=== PATIENT | female | born 1935 | race Caucasian/White ===

== ENCOUNTER 2020-01-07 12:59 | Inpatient (IN) | payer MEDICARE ==
[2020-01-07] MEDS ORDERED: SODIUM CHLORIDE 0.9% 1,000 ML IV STA (13:12)
--- NOTE | 2020-01-07 13:27 | ED ---
General Adult HPI - General Chief complaint: Weakness Stated complaint: Weakness Time Seen by Provider: 01/07/20 13:10 Source: patient, family Mode of arrival: wheelchair Limitations: no limitations - History of Present Illness Initial comments: Dictation was produced using [employer] dictation software. please excuse any grammatical, word or spelling errors. This patient was cared for during a federal and state declared state of emergency secondary to Covid 19 Chief Complaint: 83-year-old female past medical history of atrial fibrillation, congestive heart failure, coronary artery disease presents with lethargy History of Present Illness: Real female she presents with lethargy. Patient is accompanied by daughter who was able to provide history of present illness. Patient has essentially been sick since of last week. She lives at home by herself in [place]. Daughter lives in the area. Daughter went to go pick her up because she hasn't been feeling well. Patient was at home alone. She hasn't been exposed to any ill individuals. Patient is too lethargic to provide HPI. Granddaughter she has not been eating she's been excessively tired recently. Daughter also noted significant bruising of her body especially around the right upper extremity. Although daughter reports thatted in this emergency department record has been reviewed and confirmed by me. 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 Those systems with pertinent positive or negative responses have been documented in the HPI. All other systems are other negative and/or noncontributory. PHYSICAL EXAM: General Impression: Alert and oriented x2/4, lethargic, bruised HEENT: Normocephalic atraumatic, extra-ocular movements intact, pupils equal and reactive to light bilaterally, dry mucous membranes Cardiovascular: Heart regular rate and rhythm, S1&S2 audible, no murmurs, rubs or gallops Chest: Lungs clear to auscultation bilaterally, no rhonchi, no wheeze, no rales Abdomen: Bowel sounds present, abdomen soft, non-tender, non-distended, no organomegaly Musculoskeletal: weak pulses equal in all extremities, no peripheral edema Motor: no focal deficits noted Neurological: CN II-XII grossly intact, no focal motor or sensory deficits noted Skin: Intact with no visualized rashes ED course: 83 yo female with significant comorbidities presents with lethargy, generalized weakness vital signs upon arrival shows temperature 96.1, heart rate 104, blood pressure 66/45, 92% on room air Lab return evaluation obtained. Leukocytosis of 24.9 concerning for infectious process. Hemoglobin 6.8. Coag panel shows supratherapeutic INR greater than 10 with fibrinogen of 5:15. Elevated PT. Metabolic panel shows anion gap acidosis with a bicarb of 18 and a gap of 15. Glucose 195. Lactic acidosis 5.5. Urinalysis is concerning for urinary tract infection. Upon reevaluation of the patient she did complain of some lower abdominal pain there is concerned that her symptoms represent retroperitoneal hemorrhage. CT abdomen and pelvis with contrast was obtained. No acute findings noted. No findings of intra-abdominal infection or retroperitoneal hemorrhage. Nonetheless patient given broad- spectrum antibiotics for concerns of sepsis, however clinical presentation suggests symptomatic anemia patient treated with Protonix. She has not had any episodes of GI bleed. Patient stable for telemetry. Discussed patient case Dr. Blanton who is willing to accept patients care. GI on consult. EKG interpretation: Ventricular rate 60, ventricular paced rhythm, QRS 120, QTC 494. No CO prolongation, no QTC prolongation, no ST or T-wave changes noted. Overall, this EKG is unremarkable - Related Data Home Medications Medication Instructions Recorded Confirmed Acetaminophen with Codeine 1 tab PO Q8HR PRN 01/07/20 01/07/20 [Tylenol with Codeine #4 Tablet] Carvedilol [Coreg] 6.25 mg PO BID 01/07/20 01/07/20 DULoxetine HCL [Cymbalta] 60 mg PO DAILY 01/07/20 01/07/20 Furosemide [Lasix] 40 mg PO DAILY PRN 01/07/20 01/07/20 Gabapentin [Neurontin] 300 mg PO TID 01/07/20 01/07/20 Levothyroxine Sodium [Synthroid] 112 mcg PO MOTUWETHFR 01/07/20 01/07/20 Levothyroxine Sodium [Synthroid] 168 mg PO SUSA 01/07/20 01/07/20 Losartan Potassium 50 mg PO DAILY 01/07/20 01/07/20 Sucralfate [Carafate] 1 gm PO TID 01/07/20 01/07/20 Warfarin Sodium 4 mg PO HS 01/07/20 01/07/20 Allergies Allergy/AdvReac Type Severity Reaction Status Date / Time pregabalin [From Lyrica] Allergy Itching Verified 01/07/20 13:29 Review of Systems ROS Statement: Those systems with pertinent positive or pertinent negative responses have been documented in the HPI. ROS Other: All systems not noted in ROS Statement are negative. Past Medical History Past Medical History: Atrial Fibrillation, Coronary Artery Disease (CAD), Cancer, Heart Failure History of Any Multi-Drug Resistant Organisms: None Reported Past Surgical History: Pacemaker Additional Past Surgical History / Comment(s): rainer hip replacement Past Psychological History: Depression Smoking Status: Never smoker Past Alcohol Use History: None Reported Past Drug Use History: None Reported General Exam Limitations: no limitations Course Vital Signs 01/07/20 01/07/20 01/07/20 13:04 13:20 13:45 Temperature 96.1 F L Pulse Rate 104 H 60 Respiratory 22 18 Rate Blood Pressure 66/45 101/54 O2 Sat by Pulse 92 L 80 L 97 Oximetry Medical Decision Making - Lab Data Result diagrams: 01/07/20 12:15 01/07/20 12:15 Lab Results 01/07/20 01/07/20 01/07/20 Range/Units 12:15 12:15 12:15 WBC 24.9 H (3.8-10.6) k/uL RBC 2.51 L (3.80-5.40) m/uL Hgb 6.8 L* (11.4-16.0) gm/dL Hct 21.4 L (34.0-46.0) % MCV 85.2 (80.0-100.0) fL MCH 27.3 (25.0-35.0) pg MCHC 32.0 (31.0-37.0) g/dL RDW 18.1 H (11.5-15.5) % Plt Count 484 H (150-450) k/uL Neutrophils % 87 % Lymphocytes % 5 % Monocytes % 6 % Eosinophils % 0 % Basophils % 0 % Neutrophils # 21.7 H (1.3-7.7) k/uL Lymphocytes # 1.3 (1.0-4.8) k/uL Monocytes # 1.5 H (0-1.0) k/uL Eosinophils # 0.1 (0-0.7) k/uL Basophils # 0.1 (0-0.2) k/uL Hypochromasia Slight Anisocytosis Slight PT >130.0 H (9.0-12.0) sec INR >10.0 H* (<1.2) APTT 68.2 H (22.0-30.0) sec Fibrinogen 515 H (200-500) mg/dL Sodium (137-145) mmol/L Potassium (3.5-5.1) mmol/L Chloride (98-107) mmol/L Carbon Dioxide (22-30) mmol/L Anion Gap mmol/L BUN (7-17) mg/dL Creatinine (0.52-1.04) mg/dL Est GFR (CKD-EPI)AfAm (>60 ml/min/1.73 sqM) Est GFR (CKD-EPI)NonAf (>60 ml/min/1.73 sqM) Glucose (74-99) mg/dL POC Glucose (mg/dL) (75-99) mg/dL POC Glu Cast Iron Dipper ID Plasma Lactic Acid Kamran (0.7-2.0) mmol/L Calcium (8.4-10.2) mg/dL Ionized Calcium Wilner (4.5-5.3) mg/dL Magnesium (1.6-2.3) mg/dL Total Bilirubin (0.2-1.3) mg/dL AST (14-36) U/L ALT (4-34) U/L Alkaline Phosphatase (38-126) U/L Ammonia (<30) umol/L Troponin I (0.000-0.034) ng/mL Total Protein (6.3-8.2) g/dL Albumin (3.5-5.0) g/dL Urine Color Urine Appearance (Clear) Urine pH (5.0-8.0) Ur Specific [place] (1.001-1.035) Urine Protein (Negative) Urine Glucose (UA) (Negative) Urine Ketones (Negative) Urine Blood (Negative) Urine Nitrite (Negative) Urine Bilirubin (Negative) Urine Urobilinogen (<2.0) mg/dL Ur Leukocyte Esterase (Negative) Urine RBC (0-5) /hpf Urine WBC (0-5) /hpf Urine WBC Clumps (None) /hpf Ur Squamous Epith Cells (0-4) /hpf Urine Bacteria (None) /hpf Hyaline Casts (0-2) /lpf Urine Mucus (None) /hpf Blood Type O Positive Blood Type Confirm Blood Type Recheck No Previous Record Bld Type Recheck Status CABO Indicated Antibody Screen NEGATIVE Crossmatch See Detail Spec Expiration Date 01/10/2020 - 231401/07/20 01/07/20 01/07/20 Range/Units 12:15 12:15 12:15 WBC (3.8-10.6) k/uL RBC (3.80-5.40) m/uL Hgb (11.4-16.0) gm/dL Hct (34.0-46.0) % MCV (80.0-100.0) fL MCH (25.0-35.0) pg MCHC (31.0-37.0) g/dL RDW (11.5-15.5) % Plt Count (150-450) k/uL Neutrophils % % Lymphocytes % % Monocytes % % Eosinophils % % Basophils % % Neutrophils # (1.3-7.7) k/uL Lymphocytes # (1.0-4.8) k/uL Monocytes # (0-1.0) k/uL Eosinophils # (0-0.7) k/uL Basophils # (0-0.2) k/uL Hypochromasia Anisocytosis PT (9.0-12.0) sec INR (<1.2) APTT (22.0-30.0) sec Fibrinogen (200-500) mg/dL Sodium 133 L (137-145) mmol/L Potassium 4.4 (3.5-5.1) mmol/L Chloride 100 (98-107) mmol/L Carbon Dioxide 18 L (22-30) mmol/L Anion Gap 15 mmol/L BUN 20 H (7-17) mg/dL Creatinine 0.76 (0.52-1.04) mg/dL Est GFR (CKD-EPI)AfAm 84 (>60 ml/min/1.73 sqM) Est GFR (CKD-EPI)NonAf 73 (>60 ml/min/1.73 sqM) Glucose 195 H (74-99) mg/dL POC Glucose (mg/dL) (75-99) mg/dL POC Glu Cast Iron Dipper ID Plasma Lactic Acid Kamran 5.5 H* (0.7-2.0) mmol/L Calcium 8.7 (8.4-10.2) mg/dL Ionized Calcium Wilner 4.6 (4.5-5.3) mg/dL Magnesium 2.0 (1.6-2.3) mg/dL Total Bilirubin 0.9 (0.2-1.3) mg/dL AST 41 H (14-36) U/L ALT 22 (4-34) U/L Alkaline Phosphatase 77 (38-126) U/L Ammonia <9 (<30) umol/L Troponin I <0.012 (0.000-0.034) ng/mL Total Protein 6.1 L (6.3-8.2) g/dL Albumin 3.3 L (3.5-5.0) g/dL Urine Color Urine Appearance (Clear) Urine pH (5.0-8.0) Ur Specific [place] (1.001-1.035) Urine Protein (Negative) Urine Glucose (UA) (Negative) Urine Ketones (Negative) Urine Blood (Negative) Urine Nitrite (Negative) Urine Bilirubin (Negative) Urine Urobilinogen (<2.0) mg/dL Ur Leukocyte Esterase (Negative) Urine RBC (0-5) /hpf Urine WBC (0-5) /hpf Urine WBC Clumps (None) /hpf Ur Squamous Epith Cells (0-4) /hpf Urine Bacteria (None) /hpf Hyaline Casts (0-2) /lpf Urine Mucus (None) /hpf Blood Type Blood Type Confirm Blood Type Recheck Bld Type Recheck Status Antibody Screen Crossmatch Spec Expiration Date 01/07/20 01/07/20 01/07/20 Range/Units 12:20 12:20 13:26 WBC (3.8-10.6) k/uL RBC (3.80-5.40) m/uL Hgb (11.4-16.0) gm/dL Hct (34.0-46.0) % MCV (80.0-100.0) fL MCH (25.0-35.0) pg MCHC (31.0-37.0) g/dL RDW (11.5-15.5) % Plt Count (150-450) k/uL Neutrophils % % Lymphocytes % % Monocytes % % Eosinophils % % Basophils % % Neutrophils # (1.3-7.7) k/uL Lymphocytes # (1.0-4.8) k/uL Monocytes # (0-1.0) k/uL Eosinophils # (0-0.7) k/uL Basophils # (0-0.2) k/uL Hypochromasia Anisocytosis PT (9.0-12.0) sec INR (<1.2) APTT (22.0-30.0) sec Fibrinogen (200-500) mg/dL Sodium (137-145) mmol/L Potassium (3.5-5.1) mmol/L Chloride (98-107) mmol/L Carbon Dioxide (22-30) mmol/L Anion Gap mmol/L BUN (7-17) mg/dL Creatinine (0.52-1.04) mg/dL Est GFR (CKD-EPI)AfAm (>60 ml/min/1.73 sqM) Est GFR (CKD-EPI)NonAf (>60 ml/min/1.73 sqM) Glucose (74-99) mg/dL POC Glucose (mg/dL) 120 H (75-99) mg/dL POC Glu Cast Iron Dipper ID Salgat, Maryan Plasma Lactic Acid Kamran (0.7-2.0) mmol/L Calcium (8.4-10.2) mg/dL Ionized Calcium Wilner (4.5-5.3) mg/dL Magnesium (1.6-2.3) mg/dL Total Bilirubin (0.2-1.3) mg/dL AST (14-36) U/L ALT (4-34) U/L Alkaline Phosphatase (38-126) U/L Ammonia (<30) umol/L Troponin I (0.000-0.034) ng/mL Total Protein (6.3-8.2) g/dL Albumin (3.5-5.0) g/dL Urine Color Yellow Urine Appearance Cloudy H (Clear) Urine pH 5.5 (5.0-8.0) Ur Specific [place] 1.027 (1.001-1.035) Urine Protein 1+ H (Negative) Urine Glucose (UA) Trace H (Negative) Urine Ketones Negative (Negative) Urine Blood Negative (Negative) Urine Nitrite Negative (Negative) Urine Bilirubin Negative (Negative) Urine Urobilinogen 2.0 (<2.0) mg/dL Ur Leukocyte Esterase Moderate H (Negative) Urine RBC 3 (0-5) /hpf Urine WBC 27 H (0-5) /hpf Urine WBC Clumps Few H (None) /hpf Ur Squamous Epith Cells 5 H (0-4) /hpf Urine Bacteria Rare H (None) /hpf Hyaline Casts 35 H (0-2) /lpf Urine Mucus Moderate H (None) /hpf Blood Type Blood Type Confirm O Positive Blood Type Recheck Bld Type Recheck Status Antibody Screen Crossmatch Spec Expiration Date Disposition Clinical Impression: Anemia, Supratherapeutic INR Disposition: ADMITTED IP TO THIS [facility] Condition: Fair Referrals: Khari Cuellar DO [Primary Care Provider] - 1-2 days Decision Time: 14:54
[2020-01-07 13:28] LABS: Glucose,Whole Blood 120 mg/dL (75-99)
[2020-01-07 13:32] LABS: Anisocytosis Slight; Basophils # (A) 0.1 k/uL (0-0.2); Basophils % (A) 0 %; Eosinophils # (A) 0.1 k/uL (0-0.7); Eosinophils % (A) 0 %; HCT 21.4 % (34.0-46.0); Hypochromasia Slight; Lymphocytes # (A) 1.3 k/uL (1.0-4.8); Lymphocytes % (A) 5 %; MCH 27.3 pg (25.0-35.0); MCV 85.2 fL (80.0-100.0); Mean Platelet Volume 7.6; Monocytes # (A) 1.5 k/uL (0-1.0); Monocytes % (A) 6 %; Neutrophils # (A) 21.7 k/uL (1.3-7.7); Neutrophils % (A) 87 %; Platelet Count 484 k/uL (150-450); RBC 2.51 m/uL (3.80-5.40); RDW 18.1 % (11.5-15.5); WBC 24.9 k/uL (3.8-10.6)
[2020-01-07 13:44] LABS: Ionized Calcium 4.6 mg/dL (4.5-5.3)
[2020-01-07 13:48] LABS: Lactic Acid, Venous 5.5 mmol/L (0.7-2.0)
[2020-01-07] MEDS ORDERED: CEFEPIME 2 GM in SODIUM CHLORIDE 0.9% 100 ML IVPB STA (13:50)
[2020-01-07] MEDS ORDERED: VANCOMYCIN IV PER PHARMACY 1 EACH MISC MISCELLANE PRN (13:50)
[2020-01-07 13:54] LABS: HGB 6.8 gm/dL (11.4-16.0)
[2020-01-07 14:00] LABS: Appearance,Urine Cloudy (Clear); Bacteria,Urine Rare /hpf; Bilirubin,Urine Negative (Negative); Blood,Urine Negative (Negative); Color,Urine Yellow; Glucose,Urine (UA) Trace (Negative); Hyaline Casts,Urine 35 /lpf (0-2); Ketones,Urine Negative (Negative); Leukocyte Esterase,Urine Moderate (Negative); Mucus,Urine Moderate /hpf; Nitrite,Urine Negative (Negative); PH, Urine 5.5 (5.0-8.0); Protein,Urine 1+ (Negative); RBC,Urine 3 /hpf (0-5); Specific Gravity,Urine 1.027 (1.001-1.035); Squamous Epithelial Cell,Urine 5 /hpf (0-4); WBC,Urine 27 /hpf (0-5)
[2020-01-07 14:01] LABS: Fibrinogen 515 mg/dL (200-500)
[2020-01-07 14:02] LABS: Prothrombin Time >130.0 sec (9.0-12.0)
[2020-01-07 14:03] LABS: Albumin 3.3 g/dL (3.5-5.0); Calcium 8.7 mg/dL (8.4-10.2); INR >10.0 (<1.2); Partial Thromboplastin Time 68.2 sec (22.0-30.0); Potassium 4.4 mmol/L (3.5-5.1); Total Bilirubin 0.9 mg/dL (0.2-1.3); Total Protein 6.1 g/dL (6.3-8.2)
[2020-01-07] MEDS ORDERED: PHYTONADIONE 2.5 MG in SODIUM CHLORIDE 0.9% 50 ML IVPB STA (14:06)
--- NOTE | 2020-01-07 14:22 | XR ---
EXAMINATION TYPE: XR pelvis AP view DATE OF EXAM: 01/07/2020 CLINICAL HISTORY: Pelvic pain after fall TECHNIQUE: A single AP view of the pelvis is obtained. COMPARISON: None. FINDINGS: There are bilateral hip arthroplasties seen without malalignment or hardware fracture. Mini mal sclerosis of the sacroiliac joints bilaterally. Mild degenerative change of the lumbosacral junct ion. Probable punctate sclerotic bone island in the right pubic bone. No gross dislocation or fractur e of the pelvis. Diffuse osseous demineralization. Mild atherosclerosis. IMPRESSION: There is no acute fracture or dislocation in the pelvis.
--- NOTE | 2020-01-07 14:24 | XR ---
EXAMINATION TYPE: XR elbow complete RT DATE OF EXAM: 01/07/2020 CLINICAL HISTORY: Right elbow pain after fall TECHNIQUE: Frontal, lateral and oblique images of the right elbow are obtained. COMPARISON: None FINDINGS: Diffuse subcutaneous edema seen of the visualized right extremity. There is no acute fractu re/dislocation evident in the right elbow. No abnormal fat pad signs are seen. The overlying soft t issue appears unremarkable. IMPRESSION: Diffuse subcutaneous edema without acute fracture or dislocation in the right elbow.
--- NOTE | 2020-01-07 14:25 | XR ---
EXAMINATION TYPE: XR shoulder complete RT DATE OF EXAM: 01/07/2020 CLINICAL HISTORY: Right shoulder pain after fall TECHNIQUE: Three views of the right shoulder are obtained. COMPARISON: None. FINDINGS: There is no acute fracture/dislocation evident in the right shoulder. The acromioclavicul ar and glenohumeral joint spaces appear within normal limits other than mild acromioclavicular and gl enohumeral arthropathy. The visualized ribs are intact and unremarkable. IMPRESSION: There is no acute fracture or dislocation in the right shoulder.
--- NOTE | 2020-01-07 14:27 | XR ---
EXAMINATION TYPE: XR chest 1V portable DATE OF EXAM: 01/07/2020 COMPARISON: NONE HISTORY: Weakness TECHNIQUE: Single frontal view of the chest is obtained. FINDINGS: There is no focal air space opacity, pleural effusion, or pneumothorax seen. The cardiac silhouette size is enlarged with multilead left-sided cardiac device. Right hemidiaphragm elevation i s seen. The osseous structures are intact. IMPRESSION: Right hemidiaphragm elevation of indeterminate chronicity and cardiomegaly.
[2020-01-07] MEDS ORDERED: PANTOPRAZOLE 40 MG/10 ML VIAL IVP ONE (14:32)
--- NOTE | 2020-01-07 14:36 | CT ---
EXAMINATION TYPE: CT brain cspine wo con DATE OF EXAM: 01/07/2020 COMPARISON: NONE HISTORY: Fall with subsequent head and neck pain CT DLP: 1316.6 mGycm. Automated Exposure Control for Dose Reduction was Utilized. TECHNIQUE: CT scan of the head and cervical spine are performed without contrast. FINDINGS: There is no acute intracranial hemorrhage or midline shift identified. There is diffuse v entricular and sulcal prominence consistent with diffuse age-related cerebral atrophy. There is low- attenuation in the periventricular white matter consistent with chronic small vessel ischemic change. The globes are intact and the visualized sinuses are clear. Partial opacification of the right mast oid air cells. Cervical spine is visualized in its entirety from C1 through upper thoracic levels and demonstrates s atisfactory alignment without evidence of acute fracture or dislocation. Prevertebral soft tissue ap pears within normal limits. The C1-C2 articulation is unremarkable. Mild multilevel degenerative ch anges seen of the cervical spine. Patchy airspace disease in the left upper lung may relate to volume averaging from the superior mediastinum, less likely atelectasis or pneumonia. IMPRESSION: 1. There is no acute fracture or dislocation evident in the cervical spine. 2. No acute intracranial hemorrhage, mass effect, or midline shift is seen. 3. Mild degenerative disc disease of the cervical spine. 4. Partial opacification of the right mastoid air cells. Correlate for point tenderness to exclude ac giancarlo mastoiditis. 5. Partial visualization of a focus of airspace disease in the left upper lung likely volume averagin g from the mediastinum versus atelectasis or much less likely pneumonia.
[2020-01-07] MEDS ORDERED: ONDANSETRON 4 MG/2 ML VIAL IVP PRN (14:54)
[2020-01-07] MEDS ORDERED: NALOXONE 0.4 MG/ML 1 ML VIAL IV PRN (14:54)
[2020-01-07] MEDS ORDERED: VANCOMYCIN 1,000 MG in SODIUM CHLORIDE 0.9% 250 ML IVPB STA (14:57)
--- NOTE | 2020-01-07 15:03 | CT ---
EXAMINATION TYPE: CT abdomen pelvis w con DATE OF EXAM: 01/07/2020 HISTORY: abdominal pain, weakness CT DLP: 1542mGycm Automated Exposure Control for Dose Reduction was Utilized. CONTRAST: CT scan of the abdomen and pelvis is performed with IV Contrast, patient injected with 100 mL of Isov ue 300. COMPARISON: None. FINDINGS: Patient motion artifact does slightly limit the examination. LUNG BASES: Minimal bibasilar subsegmental dependent atelectasis. Heart is enlarged. LIVER/GB: Liver is unremarkable in morphology. Cholecystectomy clips are seen. Extrahepatic biliary d uctal dilatation is, and pulsed cholecystectomy measuring up to 1 cm, upper limits of normal. Minimal intrahepatic biliary ductal dilatation. PANCREAS: No significant abnormality is seen. SPLEEN: No significant abnormality is seen. ADRENALS: No significant abnormality is seen. KIDNEYS: 2 cm right superior pole renal sinus cyst. BOWEL: There are numerous colonic diverticula without pericolonic fat stranding. No dilated large or small bowel seen. UTERUS/ADNEXA: Largely obscured by bilateral hip prostheses. LYMPH NODES: No greater than 1cm abdominal or pelvic lymph nodes are appreciated. OSSEOUS STRUCTURES: The bilateral hip prostheses limit evaluation of the pelvis. There is diffuse oss eous demineralization and mild to moderate degenerative changes of the spine. No compression deformit ies seen. OTHER: Benign appearing dystrophic calcifications in both breasts. Left-sided cardiac device noted. M oderate atherosclerosis of the abdominal aorta and its branches without evidence of contrast extravas ation. IMPRESSION: No acute compression deformity of the visualized thoracolumbar spine, no evidence of abdo aidee visceral trauma, nor pneumoperitoneum.
[2020-01-07] MEDS: SODIUM CHLORIDE 0.9% 1,000 ML IV SCH (15:48)
[2020-01-07 16:53] LABS: Anisocytosis Slight; Basophils # (A) 0.1 k/uL (0-0.2); Basophils % (A) 0 %; Eosinophils % (A) 0 %; HCT 24.2 % (34.0-46.0); HGB 7.1 gm/dL (11.4-16.0); Hypochromasia Marked; Lymphocytes # (A) 1.1 k/uL (1.0-4.8); Lymphocytes % (A) 5 %; MCH 27.2 pg (25.0-35.0); MCHC 29.3 g/dL (31.0-37.0); MCV 92.8 fL (80.0-100.0); Mean Platelet Volume 7.8; Monocytes # (A) 1.5 k/uL (0-1.0); Monocytes % (A) 7 %; Neutrophils # (A) 18.5 k/uL (1.3-7.7); Neutrophils % (A) 86 %; Platelet Count 420 k/uL (150-450); RBC 2.61 m/uL (3.80-5.40); RDW 17.2 % (11.5-15.5); WBC 21.5 k/uL (3.8-10.6)
[2020-01-07 17:37] LABS: Glucose,Whole Blood 74 mg/dL (75-99)
[2020-01-07] MEDS: GABAPENTIN 300 MG CAP PO SCH ×2 (17:54→22:40)
[2020-01-07] MEDS: ACETAMINOPHEN TAB 325 MG TAB PO PRN (17:54)
[2020-01-07] MEDS: CARVEDILOL 6.25 MG TAB PO SCH (20:20)
[2020-01-07 22:55] LABS: Anisocytosis Slight; Basophils # (A) 0.1 k/uL (0-0.2); Basophils % (A) 0 %; Eosinophils # (A) 0.1 k/uL (0-0.7); Eosinophils % (A) 1 %; HCT 24.8 % (34.0-46.0); HGB 7.6 gm/dL (11.4-16.0); Hypochromasia Slight; Lymphocytes % (A) 8 %; MCH 26.9 pg (25.0-35.0); MCHC 30.6 g/dL (31.0-37.0); Mean Platelet Volume 7.7; Monocytes # (A) 2.6 k/uL (0-1.0); Monocytes % (A) 11 %; Neutrophils # (A) 18.2 k/uL (1.3-7.7); Neutrophils % (A) 77 %; Platelet Count 383 k/uL (150-450); Poikilocytosis Slight; RBC 2.82 m/uL (3.80-5.40); RDW 17.4 % (11.5-15.5); WBC 23.7 k/uL (3.8-10.6)
[2020-01-07 23:04] LABS: MCV 87.8 fL (80.0-100.0)
[2020-01-07 23:34] LABS: Large Platelets Present
[2020-01-07 23:35] LABS: Ovalocytes Present; Polychromasia Present
--- NOTE | 2020-01-08 00:38 | P.HPIM ---
History of Present Illness H&P Date: 01/07/20 Chief Complaint: Generalized weakness and lethargic Patient is a 83-year-old female with a known history of chronic atrial fibrillation on anticoagulation with Coumadin, history of pacemaker/AICD placement, chronic CHF, depression and other medical problems was brought to the hospital due to generalized weakness and lethargic. Patient lives by herself at home. Since last she has been having generalized weakness and shortness of breath with walking. Patient is accompanied by her daughter who is able to provide history. Daughter went to pick her up cultures she has not been feeling well. She has not been eating well and excessively tired recently. Patient has bruising all over the body on the extremities and also on the chest. 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 Denied any hematemesis or melena. Denied any [id number] pain medication use. No nausea vomiting or diarrhea. No dysuria or hematuria. Denied any complaints of fever or chills. No cough or sputum production. Denied any sick contacts at home. No history of prior GI bleed. Patient had EGD several years ago was negative for an acute bleeding. Patient was found to have hemoglobin level .8 and INR greater than 10. Elevated PT. WBC count 24.9 lactic acid 5.5 and urinalysis showed cloudy and elevated WBC counts and leukocyte esterase positive. Patient had CT head/cervical spine and CT abdomen and pelvis in the ER. Showed no acute bleeding. No retroperitoneal hemorrhage. EKG showed ventricular paced rhythm. Rate around 60. Patient was given a dose of vancomycin and cefepime in the ER. 1 unit of PRBC was ordered. Review of Systems Constitutional: Patient denies any fever or chills . Generalized weakness and tiredness. Abdomen: Patient denied nausea vomiting and diarrhea and abdominal pain. Cardiovascular: Patient denies any chest pain or short of breath no palpitations. Respiratory: patient denied any cough is from production. No shortness of breath Neurologic: Patient denied any numbness or tingling headache. Musculoskeletal: Patient denies any complaints of joint swelling or deformity. Skin: Ecchymosis and bruising all over the body. No active rash. Psychiatric: Negative Endocrine: No heat or cold intolerance. No recent weight gain. Genitourinary: No dysuria or hematuria. All other 14 point ROS negative except the above Past Medical History Past Medical History: Atrial Fibrillation, Coronary Artery Disease (CAD), Cancer, Heart Failure History of Any Multi-Drug Resistant Organisms: None Reported Past Surgical History: Pacemaker Additional Past Surgical History / Comment(s): rainer hip replacement Type of Cardiac Device: Permanent Pacemaker Device Placement Date:: not known Past Psychological History: Depression Smoking Status: Never smoker Past Alcohol Use History: None Reported Past Drug Use History: None Reported Medications and Allergies Home Medications Medication Instructions Recorded Confirmed Type Acetaminophen with Codeine 1 tab PO Q8HR PRN 01/07/20 01/07/20 History [Tylenol with Codeine #4 Tablet] Carvedilol [Coreg] 6.25 mg PO BID 01/07/20 01/07/20 History DULoxetine HCL [Cymbalta] 60 mg PO DAILY 01/07/20 01/07/20 History Furosemide [Lasix] 40 mg PO DAILY PRN 01/07/20 01/07/20 History Gabapentin [Neurontin] 300 mg PO TID 01/07/20 01/07/20 History Levothyroxine Sodium [Synthroid] 112 mcg PO [id number] 01/07/20 01/07/20 History Levothyroxine Sodium [Synthroid] 168 mg PO SUSA 01/07/20 01/07/20 History Losartan Potassium 50 mg PO DAILY 01/07/20 01/07/20 History Sucralfate [Carafate] 1 gm PO TID 01/07/20 01/07/20 History Warfarin Sodium 4 mg PO HS 01/07/20 01/07/20 History Allergies Allergy/AdvReac Type Severity Reaction Status Date / Time pregabalin [From Lyrica] Allergy Itching Verified 01/07/20 13:29 Physical Exam Vitals: Vital Signs Temp Pulse Resp BP Pulse Ox 01/07/20 21:00 60 20 138/79 97 01/07/20 20:00 97.9 F 60 26 H 157/55 99 01/07/20 19:00 60 20 135/55 01/07/20 18:54 98.1 F 60 12 157/55 97 01/07/20 18:00 60 25 H 169/54 95 01/07/20 17:04 98.4 F 60 18 126/84 96 01/07/20 17:00 97.8 F 59 L 24 139/64 01/07/20 16:34 97.4 F L 60 18 139/64 98 01/07/20 16:24 97.8 F 60 18 136/78 98 01/07/20 15:45 60 18 136/60 96 01/07/20 13:45 97 01/07/20 13:20 60 18 101/54 80 L 01/07/20 13:04 96.1 F L 104 H 22 66/45 92 L Intake and Output 01/07/20 01/07/20 01/07/20 06:59 14:59 22:59 Intake Total 860 Output Total 0 Balance 860 Intake: IV 350 Sodium Chloride 0.9% 1, 100 000 ml @ 100 mls/hr IV . Q10H NGOC Rx#:[id number] Vancomycin 1,000 mg In 250 Sodium Chloride 0.9% 250 ml @ 125 mls/hr IVPB ONCE STA Rx#:[id number] Intake, IV Titration 100 Amount Cefepime 2 gm In Sodium 100 Chloride 0.9% 100 ml @ 200 mls/hr IVPB ONCE STA Rx#:[id number] Oral 100 Blood Product 310 Rc Pheresis As-3 Unit 310 [id number] Output: Urine 0 Other: Voiding Method Bedpan Weight 58.967 kg 58.967 kg General Impression: Alert and oriented x2/4, lethargic, bruised HEENT: Normocephalic atraumatic, extra-ocular movements intact, pupils equal and reactive to light bilaterally, dry mucous membranes Cardiovascular: Heart regular rate and rhythm, S1&S2 audible, no murmurs, rubs or gallops Chest: Lungs clear to auscultation bilaterally, no rhonchi, no wheeze, no rales Abdomen: Bowel sounds present, abdomen soft, non-tender, non-distended, no organomegaly Musculoskeletal: weak pulses equal in all extremities, no peripheral edema Motor: no focal deficits noted Neurological: CN II-XII grossly intact, no focal motor or sensory deficits noted Skin: Intact with no visualized rashes. Patient does have bruising all over the body and also petechial rash. No active bleeding. Psychiatric.: Cooperative. Nonsuicidal. Results CBC & Chem 7: 01/07/20 22:37 01/07/20 12:15 Labs: Abnormal Lab Results - Last 24 Hours (Table) 01/07/20 01/07/20 01/07/20 Range/Units 12:15 12:15 12:15 WBC 24.9 H (3.8-10.6) k/uL RBC 2.51 L (3.80-5.40) m/uL Hgb 6.8 L* (11.4-16.0) gm/dL Hct 21.4 L (34.0-46.0) % MCHC (31.0-37.0) g/dL RDW 18.1 H (11.5-15.5) % Plt Count 484 H (150-450) k/uL Neutrophils # 21.7 H (1.3-7.7) k/uL Monocytes # 1.5 H (0-1.0) k/uL PT >130.0 H (9.0-12.0) sec INR >10.0 H* (<1.2) APTT 68.2 H (22.0-30.0) sec Fibrinogen 515 H (200-500) mg/dL Sodium (137-145) mmol/L Carbon Dioxide (22-30) mmol/L BUN (7-17) mg/dL Glucose (74-99) mg/dL POC Glucose (mg/dL) (75-99) mg/dL Plasma Lactic Acid Kamran (0.7-2.0) mmol/L AST (14-36) U/L Total Protein (6.3-8.2) g/dL Albumin (3.5-5.0) g/dL Urine Appearance (Clear) Urine Protein (Negative) Urine Glucose (UA) (Negative) Ur Leukocyte Esterase (Negative) Urine WBC (0-5) /hpf Urine WBC Clumps (None) /hpf Ur Squamous Epith Cells (0-4) /hpf Urine Bacteria (None) /hpf Hyaline Casts (0-2) /lpf Urine Mucus (None) /hpf Crossmatch See Detail 01/07/20 01/07/20 01/07/20 Range/Units 12:15 12:15 12:20 WBC (3.8-10.6) k/uL RBC (3.80-5.40) m/uL Hgb (11.4-16.0) gm/dL Hct (34.0-46.0) % MCHC (31.0-37.0) g/dL RDW (11.5-15.5) % Plt Count (150-450) k/uL Neutrophils # (1.3-7.7) k/uL Monocytes # (0-1.0) k/uL PT (9.0-12.0) sec INR (<1.2) APTT (22.0-30.0) sec Fibrinogen (200-500) mg/dL Sodium 133 L (137-145) mmol/L Carbon Dioxide 18 L (22-30) mmol/L BUN 20 H (7-17) mg/dL Glucose 195 H (74-99) mg/dL POC Glucose (mg/dL) (75-99) mg/dL Plasma Lactic Acid Kamran 5.5 H* (0.7-2.0) mmol/L AST 41 H (14-36) U/L Total Protein 6.1 L (6.3-8.2) g/dL Albumin 3.3 L (3.5-5.0) g/dL Urine Appearance Cloudy H (Clear) Urine Protein 1+ H (Negative) Urine Glucose (UA) Trace H (Negative) Ur Leukocyte Esterase Moderate H (Negative) Urine WBC 27 H (0-5) /hpf Urine WBC Clumps Few H (None) /hpf Ur Squamous Epith Cells 5 H (0-4) /hpf Urine Bacteria Rare H (None) /hpf Hyaline Casts 35 H (0-2) /lpf Urine Mucus Moderate H (None) /hpf Crossmatch 01/07/20 01/07/20 01/07/20 Range/Units 13:26 16:06 17:35 WBC 21.5 H (3.8-10.6) k/uL RBC 2.61 L (3.80-5.40) m/uL Hgb 7.1 L (11.4-16.0) gm/dL Hct 24.2 L (34.0-46.0) % MCHC 29.3 L (31.0-37.0) g/dL RDW 17.2 H (11.5-15.5) % Plt Count (150-450) k/uL Neutrophils # 18.5 H (1.3-7.7) k/uL Monocytes # 1.5 H (0-1.0) k/uL PT (9.0-12.0) sec INR (<1.2) APTT (22.0-30.0) sec Fibrinogen (200-500) mg/dL Sodium (137-145) mmol/L Carbon Dioxide (22-30) mmol/L BUN (7-17) mg/dL Glucose (74-99) mg/dL POC Glucose (mg/dL) 120 H 74 L (75-99) mg/dL Plasma Lactic Acid Kamran (0.7-2.0) mmol/L AST (14-36) U/L Total Protein (6.3-8.2) g/dL Albumin (3.5-5.0) g/dL Urine Appearance (Clear) Urine Protein (Negative) Urine Glucose (UA) (Negative) Ur Leukocyte Esterase (Negative) Urine WBC (0-5) /hpf Urine WBC Clumps (None) /hpf Ur Squamous Epith Cells (0-4) /hpf Urine Bacteria (None) /hpf Hyaline Casts (0-2) /lpf Urine Mucus (None) /hpf Crossmatch 01/07/20 Range/Units 18:00 WBC (3.8-10.6) k/uL RBC (3.80-5.40) m/uL Hgb (11.4-16.0) gm/dL Hct (34.0-46.0) % MCHC (31.0-37.0) g/dL RDW (11.5-15.5) % Plt Count (150-450) k/uL Neutrophils # (1.3-7.7) k/uL Monocytes # (0-1.0) k/uL PT (9.0-12.0) sec INR (<1.2) APTT (22.0-30.0) sec Fibrinogen (200-500) mg/dL Sodium (137-145) mmol/L Carbon Dioxide (22-30) mmol/L BUN (7-17) mg/dL Glucose (74-99) mg/dL POC Glucose (mg/dL) (75-99) mg/dL Plasma Lactic Acid Kamran 2.2 H* (0.7-2.0) mmol/L AST (14-36) U/L Total Protein (6.3-8.2) g/dL Albumin (3.5-5.0) g/dL Urine Appearance (Clear) Urine Protein (Negative) Urine Glucose (UA) (Negative) Ur Leukocyte Esterase (Negative) Urine WBC (0-5) /hpf Urine WBC Clumps (None) /hpf Ur Squamous Epith Cells (0-4) /hpf Urine Bacteria (None) /hpf Hyaline Casts (0-2) /lpf Urine Mucus (None) /hpf Crossmatch Microbiology - Last 24 Hours (Table) 01/07/20 12:20 Urine Culture - Preliminary Urine,Catheterized Thrombosis Risk Factor Assmnt - DVT/VTE Prophylaxis DVT/VTE Prophylaxis: Pharmacologic Prophylaxis ordered, Mechanical Prophylaxis ordered - Choose All That Apply Each Risk Factor Represents 3 Points: Age 75 years or older Thrombosis Risk Factor Assessment Total Risk Factor Score: 3 Thrombosis Risk Factor Assessment Level: Moderate Risk Assessment and Plan Assessment: Symptomatic anemia Acute blood loss anemia due to generalized bruising. Hemoglobin 6.8 Acute urinary tract infection Supratherapeutic INR level Chronic atrial fibrillation on anticoagulation with Coumadin. status post AICD placement history Chronic CHF. Ejection fraction unknown. Depression DVT prophylaxis patient is already has supratherapeutic: Level GI prophylaxis. With PPI Plan: Patient will be continued on blood transfusion with 1 unit of PRBC and monitor his and his closely. Patient was given a dose of vitamin K in the ER. Follow- up INR level. Coumadin is on hold. Patient will be continued on PPI. GI will be consulted. Patient will be continued on antibiotics in the form of cefepime and follow-up urine culture report. Continue the home medications and further recommendations based on the clinical course. Patient is being transferred to MICU for close monitoring. Time with Patient: Greater than 30
[2020-01-08] MEDS: SODIUM CHLORIDE 0.9% 1,000 ML IV SCH ×2 (01:52→17:03)
[2020-01-08] MEDS: ACETAMINOPHEN TAB 325 MG TAB PO PRN (01:54)
[2020-01-08] MEDS ORDERED: HYDROmorphone 1 MG/ML 1 ML SYRINGE IVP STA (02:09)
[2020-01-08 04:34] LABS: Anisocytosis Slight; Basophils # (A) 0.1 k/uL (0-0.2); Basophils % (A) 1 %; Eosinophils # (A) 0.1 k/uL (0-0.7); Eosinophils % (A) 1 %; HCT 20.4 % (34.0-46.0); Hypochromasia Slight; Lymphocytes # (A) 1.1 k/uL (1.0-4.8); Lymphocytes % (A) 7 %; MCH 27.4 pg (25.0-35.0); MCHC 31.8 g/dL (31.0-37.0); MCV 86.2 fL (80.0-100.0); Mean Platelet Volume 7.4; Monocytes # (A) 1.5 k/uL (0-1.0); Monocytes % (A) 9 %; Neutrophils # (A) 12.8 k/uL (1.3-7.7); Neutrophils % (A) 80 %; Platelet Count 344 k/uL (150-450); Poikilocytosis Slight; RBC 2.37 m/uL (3.80-5.40); RDW 17.4 % (11.5-15.5)
[2020-01-08 04:45] LABS: African American GFR (CKD) >90 (>60 ml/min/1.73 sqM); Anion Gap 4 mmol/L; Blood Urea Nitrogen 18 mg/dL (7-17); Calcium 8.5 mg/dL (8.4-10.2); Carbon Dioxide 27 mmol/L (22-30); Chloride 103 mmol/L (98-107); Glucose 95 mg/dL (74-99); INR 1.5 (<1.2); Non-African American GFR(CKD) 82 (>60 ml/min/1.73 sqM); Partial Thromboplastin Time 27.1 sec (22.0-30.0); Potassium 4.6 mmol/L (3.5-5.1); Sodium 134 mmol/L (137-145)
[2020-01-08 04:47] LABS: HGB 6.5 gm/dL (11.4-16.0)
[2020-01-08] MEDS: LEVOTHYROXINE 112 MCG TAB PO SCH (06:45)
[2020-01-08] MEDS: CARVEDILOL 6.25 MG TAB PO SCH ×2 (06:45→17:03)
[2020-01-08] MEDS: LOSARTAN 50 MG TAB PO SCH (08:50)
[2020-01-08] MEDS: PANTOPRAZOLE 40 MG/10 ML VIAL IV SCH (08:50)
[2020-01-08] MEDS: GABAPENTIN 300 MG CAP PO SCH ×3 (08:50→21:19)
[2020-01-08] MEDS: CEFEPIME 2 GM in SODIUM CHLORIDE 0.9% 100 ML IVPB SCH ×2 (08:50→21:20)
[2020-01-08] MEDS ORDERED: VANCOMYCIN 1,000 MG in SODIUM CHLORIDE 0.9% 250 ML IVPB SCH (10:00)
--- NOTE | 2020-01-08 10:13 | US ---
EXAMINATION TYPE: US venous doppler duplex UE BI DATE OF EXAM: 01/08/2020 COMPARISON: NONE CLINICAL HISTORY: r/o DVT. Edema SIDE PERFORMED: Bilateral Right Arm: Negative for DVT Left Arm: Negative for DVT IMPRESSION: No evidence for upper extremity DVT.
[2020-01-08] MEDS: HYDROcodone/APAP 5-325MG 1 EACH TAB PO PRN ×2 (12:49→21:20)
--- NOTE | 2020-01-08 14:58 | P.CNPUL ---
History of Present Illness Consult date: 01/08/20 Chief complaint: Altered mental status, pulmonary critical care for ICU management. History of present illness: This is an 83-year-old female patient is followed by Dr. Khari Cuellar on an outpatient basis. The patient presented to the emergency department here at [facility] yesterday accompanied by her daughter for complaints of lethargy. This morning she reports that she has been having frequent falls at home and has been having some itching to her legs and arms. She denies any recent fever, cough, nausea, vomiting, melena, hematemesis, diarrhea or headache. Patient apparently lives in [facility] and her daughter lives locally went to check on her and bring her here to the hospital. She has past medical history significant for atrial fibrillation in which she takes Coumadin at home for anticoagulation, hypertension, congestive heart failure, history of pacemaker/AICD placement and coronary artery disease. The patient reports that she has been having some bruising and blood blister type eruptions to her upper and lower extremities which have been present for a while and has a large bruise to her right upper arm due to a recent fall. On admission her labs showed the WBC 24.9, Hgb 6.8, platelets 484, PT greater than 130, INR greater than 10.0, PTT 60.2, fibrinogen 515, lactic acid 5.5, CO2 18, BUN 20, creatinine 0.76, and AST 41. A urinalysis was also completed which showed urine WBC 27, and rare bacteria with her urine culture showing no growth after 18 hours. A computed tomography scan of her brain/E spine was completed which showed no acute fracture, dislocation evident of the cervical spine, no acute intracranial hemorrhage, mass effect or midline shift, mild degenerative disc disease of the cervical spine, and partial opacification of the right mastoid air cells. X- rays of the pelvis, elbow and shoulder demonstrate no acute fracture or dislocation. The initial chest x-ray showed right hemidiaphragm elevation of indeterminate chronicity and cardiomegaly. Computed tomography scan of the abdomen and pelvis demonstrated no acute compression deformity of the thoracolumbar spine, no evidence of abdominal visceral trauma or pneumoperitoneum. Initial 12-lead EKG demonstrated a ventricular paced rhythm heart rate 60. She was subsequently admitted to the intensive care unit for further evaluation, monitoring and treatment recommendations. Review of Systems Constitutional: Reports fatigue, Reports lethargy, Reports weakness (Generalized weakness) Eyes: denies blurred vision, denies decreased vision, denies photophobia, denies loss of peripheral vision, denies loss of vision Ears: deny: decreased hearing, ear discharge, tinnitus Ears, nose, mouth and throat: Reports as per HPI Cardiovascular: Denies chest pain, Denies edema, Denies shortness of breath Respiratory: Denies congestion, Denies cough, Denies home oxygen, Denies sleep apnea Gastrointestinal: Reports loss of appetite, Denies bloating, Denies change in bowel habits, Denies coffee ground emesis, Denies constipation, Denies diarrhea, Denies hematemesis Genitourinary: Denies difficulty voiding, Denies dysuria, Denies flank pain, Denies hematuria, Denies urgency, Denies urinary frequency Musculoskeletal: Reports frequent falls, Reports muscle weakness, Denies arm numbness/tingling, Denies fractures, Denies limitation of motion, Denies low back pain, Denies neck pain, Denies neck stiffness Musculoskeletal: right: elbow pain, elbow swelling (right arm swelling) Integumentary: Reports lesions, Reports rash, Reports unusual bruising (to her upper and lower extremities.) Neurological: Denies balance difficulties, Denies change in speech, Denies double vision, Denies gait dysfunction, Denies headaches, Denies seizures Psychiatric: Reports hallucinations, Denies anxiety, Denies confusion, Denies insomnia, Denies sleep disturbances Endocrine: Reports fatigue, Denies palpitations, Denies polyuria Hematologic/Lymphatic: Reports easy bruising Past Medical History Past Medical History: Atrial Fibrillation, Coronary Artery Disease (CAD), Cancer, Heart Failure, Hypertension History of Any Multi-Drug Resistant Organisms: None Reported Past Surgical History: Pacemaker Additional Past Surgical History / Comment(s): rainer hip replacement Type of Cardiac Device: Permanent Pacemaker Device Placement Date:: not known Past Psychological History: Depression Smoking Status: Never smoker Past Alcohol Use History: None Reported Past Drug Use History: None Reported Medications and Allergies Home Medications Medication Instructions Recorded Confirmed Type Acetaminophen with Codeine 1 tab PO Q8HR PRN 01/07/20 01/07/20 History [Tylenol with Codeine #4 Tablet] Carvedilol [Coreg] 6.25 mg PO BID 01/07/20 01/07/20 History DULoxetine HCL [Cymbalta] 60 mg PO DAILY 01/07/20 01/07/20 History Furosemide [Lasix] 40 mg PO DAILY PRN 01/07/20 01/07/20 History Gabapentin [Neurontin] 300 mg PO TID 01/07/20 01/07/20 History Levothyroxine Sodium [Synthroid] 112 mcg PO MOTUWETHFR 01/07/20 01/07/20 History Levothyroxine Sodium [Synthroid] 168 mg PO SUSA 01/07/20 01/07/20 History Losartan Potassium 50 mg PO DAILY 01/07/20 01/07/20 History Sucralfate [Carafate] 1 gm PO TID 01/07/20 01/07/20 History Warfarin Sodium 4 mg PO HS 01/07/20 01/07/20 History Allergies Allergy/AdvReac Type Severity Reaction Status Date / Time pregabalin [From Lyrica] Allergy Itching Verified 01/07/20 13:29 Physical Exam Vitals: Vital Signs Temp Pulse Pulse Resp BP BP Pulse Ox 01/08/20 12:39 97.7 F 60 16 124/61 99 01/08/20 11:00 60 16 116/64 01/08/20 10:53 97.7 F 60 16 136/57 94 L 01/08/20 10:23 97.7 F 60 12 111/79 95 01/08/20 10:13 97.7 F 60 16 138/55 94 L 01/08/20 10:00 60 21 137/55 01/08/20 09:00 60 16 137/61 01/08/20 08:00 97.2 F L 60 24 131/58 94 L 01/08/20 07:00 60 11 L 134/58 01/08/20 06:00 60 20 136/54 97 01/08/20 05:00 60 25 H 119/57 98 01/08/20 04:46 97.7 F 60 119/57 01/08/20 04:00 98.0 F 60 17 120/52 97 01/08/20 03:26 98.0 F 60 12 120/52 01/08/20 03:00 60 23 130/49 97 01/08/20 02:56 97.8 F 60 17 130/72 01/08/20 02:46 97.7 F 60 17 132/68 97 01/08/20 02:00 60 6 L 161/64 97 01/08/20 01:30 97.6 F 60 15 130/65 01/08/20 01:19 97.7 F 60 12 160/71 01/08/20 01:00 60 8 L 115/85 96 01/08/20 00:49 97.8 F 60 16 142/69 01/08/20 00:39 97.7 F 60 17 115/85 96 01/08/20 00:00 97.7 F 60 21 142/56 97 01/07/20 23:00 60 19 138/65 97 01/07/20 22:00 60 20 156/61 99 01/07/20 21:20 59 L 27 H 156/61 97 01/07/20 21:00 60 20 138/79 97 01/07/20 20:00 97.9 F 60 26 H 157/55 99 01/07/20 19:00 60 20 135/55 01/07/20 18:54 98.1 F 60 12 157/55 97 01/07/20 18:00 60 25 H 169/54 95 01/07/20 17:04 98.4 F 60 18 126/84 96 01/07/20 17:00 97.8 F 59 L 24 139/64 01/07/20 16:34 97.4 F L 60 18 139/64 98 01/07/20 16:24 97.8 F 60 18 136/78 98 01/07/20 15:45 60 18 136/60 96 Intake and Output 01/07/20 01/08/20 01/08/20 22:59 06:59 14:59 Intake Total 1060 1470 810 Output Total 300 100 Balance 760 1370 810 Intake: IV 550 600 500 Sodium Chloride 0.9% 1, 300 600 500 000 ml @ 40 mls/hr IV . Q24H NGOC Rx#:[id number] Vancomycin 1,000 mg In 250 Sodium Chloride 0.9% 250 ml @ 125 mls/hr IVPB ONCE STA Rx#:[id number] Intake, IV Titration 100 Amount Cefepime 2 gm In Sodium 100 Chloride 0.9% 100 ml @ 200 mls/hr IVPB ONCE STA Rx#:[id number] Oral 100 Blood Product 310 870 310 Ffp 24 Pher Acda Unit 218 [id number] Ffp 24 Pher Acda Cnt1 218 Unit [id number] Rc Pheresis 2 As3 Unit 310 [id number] Rc Pheresis As-3 Unit 310 [id number] Output: Urine 300 100 Other: Voiding Method Bedpan Bedpan Bedpan # Voids 1 # Bowel Movements 1 Weight 58.967 kg 62.2 kg 62.2 kg - Constitutional General appearance: cooperative, no acute distress - EENT Normocephalic Eyes: PERRLA ENT: normal oropharynx - Respiratory Lung sounds essentially clear throughout, diminished her right lower lobe. Respirations are symmetrical and nonlabored. No wheezes, rhonchi or crackles. - Cardiovascular Regular rhythm and rate. S1 and S2 present, negative for S3, gallop or murmur. - Gastrointestinal Abdomen is soft, nontender and nondistended. Active bowel sounds present in all 4 abdominal quadrants. No guarding or rigidity. No organomegaly. - Integumentary Skin is warm and dry. Ecchymosis and swelling to her right arm. Scattered petechial rash to her bilateral upper and lower extremities, back and lower left quadrant abdomen. - Neurologic Neurologic: CNII-XII intact - Musculoskeletal Musculoskeletal: generalized weakness - Psychiatric Flat affect. Psychiatric: A&O x's 3 Results X-rays reports reviewed of the pelvis, elbow, and shoulder. Computed tomography scan of the abdomen/pelvis report reviewed. - Laboratory Findings CBC and BMP: 01/08/20 04:11 01/08/20 04:11 PT/INR, D-dimer PT 15.0 sec (9.0-12.0) H 01/08/20 04:11 INR 1.5 (<1.2) H 01/08/20 04:11 Abnormal lab findings: Abnormal Labs 01/07/20 01/07/20 01/07/20 12:15 12:15 12:15 WBC 24.9 H RBC 2.51 L Hgb 6.8 L* Hct 21.4 L MCHC RDW 18.1 H Plt Count 484 H Neutrophils # 21.7 H Monocytes # 1.5 H PT >130.0 H INR >10.0 H* APTT 68.2 H Fibrinogen 515 H Sodium Carbon Dioxide BUN Glucose POC Glucose (mg/dL) Plasma Lactic Acid Kamran AST Total Protein Albumin Urine Appearance Urine Protein Urine Glucose (UA) Ur Leukocyte Esterase Urine WBC Urine WBC Clumps Ur Squamous Epith Cells Urine Bacteria Hyaline Casts Urine Mucus Crossmatch See Detail 01/07/20 01/07/20 01/07/20 12:15 12:15 12:20 WBC RBC Hgb Hct MCHC RDW Plt Count Neutrophils # Monocytes # PT INR APTT Fibrinogen Sodium 133 L Carbon Dioxide 18 L BUN 20 H Glucose 195 H POC Glucose (mg/dL) Plasma Lactic Acid Kamran 5.5 H* AST 41 H Total Protein 6.1 L Albumin 3.3 L Urine Appearance Cloudy H Urine Protein 1+ H Urine Glucose (UA) Trace H Ur Leukocyte Esterase Moderate H Urine WBC 27 H Urine WBC Clumps Few H Ur Squamous Epith Cells 5 H Urine Bacteria Rare H Hyaline Casts 35 H Urine Mucus Moderate H Crossmatch 01/07/20 01/07/20 01/07/20 13:26 16:06 17:35 WBC 21.5 H RBC 2.61 L Hgb 7.1 L Hct 24.2 L MCHC 29.3 L RDW 17.2 H Plt Count Neutrophils # 18.5 H Monocytes # 1.5 H PT INR APTT Fibrinogen Sodium Carbon Dioxide BUN Glucose POC Glucose (mg/dL) 120 H 74 L Plasma Lactic Acid Kamran AST Total Protein Albumin Urine Appearance Urine Protein Urine Glucose (UA) Ur Leukocyte Esterase Urine WBC Urine WBC Clumps Ur Squamous Epith Cells Urine Bacteria Hyaline Casts Urine Mucus Crossmatch 01/07/20 01/07/20 01/07/20 18:00 22:37 22:37 WBC 23.7 H RBC 2.82 L Hgb 7.6 L Hct 24.8 L MCHC 30.6 L RDW 17.4 H Plt Count Neutrophils # 18.2 H Monocytes # 2.6 H PT INR APTT Fibrinogen Sodium Carbon Dioxide BUN Glucose POC Glucose (mg/dL) Plasma Lactic Acid Kamran 2.2 H* 2.1 H* AST Total Protein Albumin Urine Appearance Urine Protein Urine Glucose (UA) Ur Leukocyte Esterase Urine WBC Urine WBC Clumps Ur Squamous Epith Cells Urine Bacteria Hyaline Casts Urine Mucus Crossmatch 01/08/20 01/08/20 01/08/20 04:11 04:11 04:11 WBC 16.0 H RBC 2.37 L Hgb 6.5 L* Hct 20.4 L MCHC RDW 17.4 H Plt Count Neutrophils # 12.8 H Monocytes # 1.5 H PT 15.0 H INR 1.5 H APTT Fibrinogen Sodium 134 L Carbon Dioxide BUN 18 H Glucose POC Glucose (mg/dL) Plasma Lactic Acid Kamran AST Total Protein Albumin Urine Appearance Urine Protein Urine Glucose (UA) Ur Leukocyte Esterase Urine WBC Urine WBC Clumps Ur Squamous Epith Cells Urine Bacteria Hyaline Casts Urine Mucus Crossmatch - Diagnostic Findings Chest x-ray: report reviewed, image reviewed Assessment and Plan Assessment: 1. Acute blood loss anemia secondary to falls and supratherapeutic INR. 2. Chronic atrial fibrillation, on Coumadin at home for anticoagulation. 3. Multiple blood blisters with dark old hemorrhagic vesicles to her bilateral upper and lower extremities, back and left lower quadrant abdomen. 4. Chronic congestive heart failure, ejection fraction unknown, history of status post AICD placement 5. History of hypertension, on losartan at home 6. History of depression Plan: 1. The patient was seen and examined at her bedside in the intensive care unit with Dr. Ansari. 2. We will obtain a 2-D echocardiogram to evaluate her LV function. 3. We will obtain a venous Doppler study of her bilateral upper extremities due to swelling to her right upper extremity and bruising. 4. Discontinue vancomycin, continue Cefepime for possible UTI. Currently her urine culture is showing no growth after 18 hours. 5. Discontinue Coumadin, due to possible reaction from the Coumadin and mu ltiple blood blisters with dark old hemorrhagic vesicles which seems to be old in nature. 6. Transfuse 1 unit of PRBCs today for a hemoglobin of 6.5. Repeat CBC in the a.m. 7. We will continue to follow the patient and make further recommendations based on patient's clinical course. This was a joint evaluation done between the nurse practitioner and Dr. Katelyn Ansari. Time with Patient: Greater than 30
--- NOTE | 2020-01-08 15:57 | ECHOF ---
Referral Reason:assess LV function MEASUREMENTS -------- HEIGHT: 152.4 cm WEIGHT: 62.1 kg BP: MV E Conor: 0.51 m/s MV DecT: 123 ms MV A Conor: 0.16 m/s MV E/A Ratio: 2.92 RAP: 5.00 mmHg RVSP: 62.43 mmHg FINDINGS -------- Sinus rhythm. This was a technically adequate study. The left ventricular size is normal. Left ventricular wall thickness is normal. Overall left vent ricular systolic function is normal with, an EF between 55 - 60 %. The right ventricle is normal in size. The left atrium is moderately dilated. The right atrial size is normal. There is mild aortic valve sclerosis without stenosis. There is no evidence of aortic regurgitation . Mild mitral annular calcification present. Awlxicyo-uw-aftuep mitral regurgitation is present. Owkd-fk-xlwofzjb tricuspid regurgitation present. There is moderate pulmonary hypertension. The r ight ventricular systolic pressure, as measured by Doppler, is 62.43mmHg. There is no pulmonic regurgitation present. The aortic root size is normal. There is no pericardial effusion. CONCLUSIONS -------- 1. Sinus rhythm. 2. Left ventricular wall thickness is normal. 3. Overall left ventricular systolic function is normal with, an EF between 55 - 60 %. 4. The left atrium is moderately dilated. 5. There is mild aortic valve sclerosis without stenosis. 6. Mild mitral annular calcification present. 7. Hooxypoh-ql-dyyvaa mitral regurgitation is present. 8. Sbbu-gl-pgovgulz tricuspid regurgitation present. 9. There is moderate pulmonary hypertension. 10. There is no pulmonic regurgitation present. 11. There is no pericardial effusion. TRANSIT MAN: Wendi Spears RDCS
--- NOTE | 2020-01-08 15:58 | CONS ---
CONSULTATION DATE OF SERVICE: 01/08/2020 REASON FOR CONSULTATION: Symptomatic anemia and hemoglobin of 6.5 g/dL. HISTORY OF PRESENT ILLNESS: The patient is an 83-year-old pleasant white male with history of atrial fibrillation on Coumadin, history of AICD placement and congestive heart failure, who was admitted to the hospital complaining of generalized weakness and shortness of breath for the last few days' duration. She came to the emergency room and she was noted to have a hemoglobin of 6.5 g/dL and elevated PT with an INR of more than 10. She received vitamin K in the emergency room as well as 2 units of PRBC transfusion and was admitted to the hospital to the intensive care unit. She was also noted to have severe leukocytosis with lactic acidosis, possibly from UTI and presently on broad-spectrum antibiotics. The patient denies any abdominal pain. She reports no nausea, vomiting, denies any rectal bleeding or melena. She denies any active bleeding or melena. She denies any recent , no prior history of peptic ulcer disease. As per her daughter, the patient had EGD colonoscopy in February of 2019 at [facility] and according to her, she was told that there was a source of bleeding identified but could not be cauterized. She is unclear if she had any small bowel capsule endoscopy at that time. PAST MEDICAL HISTORY: Past medical history is significant for atrial fibrillation, on Coumadin, congestive heart failure, AICD implantation, coronary artery disease. past anxiety and depression. PAST SURGICAL HISTORY: AICD placement, bilateral hip replacement, and permanent pacemaker. MEDICATIONS: At home include: Coumadin, gabapentin, Lasix, Cymbalta, Coreg, Tylenol No. 3, Carafate, losartan, Synthroid. ALLERGIES: SOCIAL HISTORY: No smoking. No alcohol use. FAMILY HISTORY: Unremarkable. REVIEW OF SYSTEMS: CARDIOPULMONARY: She denies any chest pain, but shortness of breath. GENITOURINARY: No dysuria or hematuria. MUSCULOSKELETAL: She complains of chronic back pain. NEUROLOGY: Unremarkable. PSYCHIATRIC: Unremarkable. ENT/VISION: Unremarkable. CONSTITUTIONAL: No recent weight loss. No fever, chills, night sweats. PHYSICAL EXAMINATION: She appears comfortable, in no apparent distress. Vital signs are stable. Blood pressure is a 116/64, pulse rate 60, temperature 97.7. HEENT: Examination unremarkable. Conjunctivae are pink. Sclerae nonicteric. Oral cavity no lesions. NECK: No JVD or lymph node enlargement. CHEST: Clear to auscultation. HEART: Regular rate and rhythm. ABDOMEN: Soft. Bowel sounds are positive. No organomegaly. EXTREMITIES: Multiple petechia noted. NEUROLOGIC: Alert and oriented x3. No focal deficits. LABS: Done at the time of admission to the hospital. Initial hemoglobin was 7.6, subsequently dropped to 6.5, received 2 units of PRBC transfusion. WBC was 23.7, today is 16, platelets are normal. INR was more than 10. Today it is down to 1.5. T bilirubin and alkaline phosphatase, ALT and AST are normal. Lactic acid was 2.1 down to 1.1, BUN 20, creatinine 0.76. IMPRESSION: 1. Severe symptomatic anemia with a hemoglobin of 6.8 after 2 units of PRBC transfusion, clinically does not have any evidence of active ongoing bleeding, most likely dealing with occult GI blood loss. As per the patient, she had an EGD and colonoscopy done at [facility] and in February of 2019. Records are not available. Hemoglobin after PRBC transfusion is still pending. 2. Atrial fibrillation on Coumadin which is currently on hold. INR is down to 1.5. The patient also received 2 units of fresh frozen plasma. 3. History of AICD implantation. 4. Urinary tract infection, on broad-spectrum antibiotics. RECOMMENDATIONS: 1. Monitor CBC closely. 2. Requested all the records from [facility] to review them. 3. No plan for any repeat endoscopy intervention at the present time. 4. Continue with Protonix 40 mg daily. 5. Will follow with you closely. Thank you for this consultation. MMODL / IJN: [id number] /
[2020-01-08 23:00] LABS: Anisocytosis Slight; HCT 23.8 % (34.0-46.0); HGB 7.6 gm/dL (11.4-16.0); Hypochromasia Slight; MCH 27.5 pg (25.0-35.0); MCHC 31.8 g/dL (31.0-37.0); MCV 86.6 fL (80.0-100.0); Mean Platelet Volume 7.5; Platelet Count 360 k/uL (150-450); Poikilocytosis Moderate; RBC 2.75 m/uL (3.80-5.40); RDW 17.5 % (11.5-15.5); WBC 12.3 k/uL (3.8-10.6)
[2020-01-09] MEDS: HYDROcodone/APAP 5-325MG 1 EACH TAB PO PRN ×2 (02:49→09:52)
[2020-01-09 06:27] LABS: Anisocytosis Slight; Basophils # (A) 0.1 k/uL (0-0.2); Basophils % (A) 1 %; Eosinophils # (A) 0.3 k/uL (0-0.7); Eosinophils % (A) 3 %; HCT 23.6 % (34.0-46.0); HGB 7.7 gm/dL (11.4-16.0); Hypochromasia Slight; Lymphocytes # (A) 1.8 k/uL (1.0-4.8); Lymphocytes % (A) 15 %; MCH 28.5 pg (25.0-35.0); MCHC 32.7 g/dL (31.0-37.0); MCV 87.1 fL (80.0-100.0); Mean Platelet Volume 7.4; Monocytes # (A) 1.1 k/uL (0-1.0); Monocytes % (A) 9 %; Neutrophils # (A) 8.9 k/uL (1.3-7.7); Neutrophils % (A) 71 %; Platelet Count 380 k/uL (150-450); Poikilocytosis Moderate; RBC 2.71 m/uL (3.80-5.40); RDW 17.7 % (11.5-15.5); WBC 12.5 k/uL (3.8-10.6)
[2020-01-09] MEDS: LEVOTHYROXINE 112 MCG TAB PO SCH (06:30)
[2020-01-09] MEDS: SODIUM CHLORIDE 0.9% 1,000 ML IV SCH (06:30)
[2020-01-09] MEDS: CARVEDILOL 6.25 MG TAB PO SCH ×2 (06:30→17:13)
[2020-01-09 06:42] LABS: African American GFR (CKD) >90 (>60 ml/min/1.73 sqM); Anion Gap 4 mmol/L; Blood Urea Nitrogen 16 mg/dL (7-17); Calcium 8.7 mg/dL (8.4-10.2); Carbon Dioxide 25 mmol/L (22-30); Chloride 108 mmol/L (98-107); Glucose 88 mg/dL (74-99); Non-African American GFR(CKD) 79 (>60 ml/min/1.73 sqM); Potassium 4.3 mmol/L (3.5-5.1); Sodium 137 mmol/L (137-145)
[2020-01-09] MEDS: PANTOPRAZOLE 40 MG/10 ML VIAL IV SCH (09:10)
[2020-01-09] MEDS: CEFEPIME 2 GM in SODIUM CHLORIDE 0.9% 100 ML IVPB SCH ×2 (09:11→20:27)
[2020-01-09] MEDS: GABAPENTIN 300 MG CAP PO SCH ×3 (09:11→20:26)
[2020-01-09] MEDS: LOSARTAN 50 MG TAB PO SCH (09:11)
--- NOTE | 2020-01-09 12:56 | P.PN ---
Subjective Progress Note Date: 01/09/20 Principal diagnosis: Altered mental status, lethargic is an 83-year-old female patient is followed by Dr. Khari Cuellar on an outpatient basis. The patient presented to the emergency department here at [facility] yesterday accompanied by her daughter for complaints of lethargy. This morning she reports that she has been having frequent falls at home and has been having some itching to her legs and arms. She denies any recent fever, cough, nausea, vomiting, melena, hematemesis, diarrhea or headache. Patient apparently lives in [facility] and her daughter lives locally went to check on her and bring her here to the hospital. She has past medical history significant for atrial fibrillation in which she takes Coumadin at home for anticoagulation, hypertension, congestive heart failure, history of pacemaker/AICD placement and coronary artery disease. The patient reports that she has been having some bruising and blood blister type eruptions to her upper and lower extremities which have been present for a while and has a large bruise to her right upper arm due to a recent fall. On admission her labs showed the WBC 24.9, Hgb 6.8, platelets 484, PT greater than 130, INR greater than 10.0, PTT 60.2, fibrinogen 515, lactic acid 5.5, CO2 18, BUN 20, creatinine 0.76, and AST 41. A urinalysis was also completed which showed urine WBC 27, and rare bacteria with her urine culture showing no growth after 18 hours. A computed tomography scan of her brain/E spine was completed which showed no acute fracture, dislocation evident of the cervical spine, no acute intracranial hemorrhage, mass effect or midline shift, mild degenerative disc disease of the cervical spine, and partial opacification of the right mastoid air cells. X-rays of the pelvis, elbow and shoulder demonstrate no acute fracture or dislocation. The initial chest x-ray showed right hemidiaphragm elevation of indeterminate chronicity and cardiomegaly. Computed tomography scan of the abdomen and pelvis demonstrated no acute compression deformity of the thoracol umbar spine, no evidence of abdominal visceral trauma or pneumoperitoneum. Initial 12-lead EKG demonstrated a ventricular paced rhythm heart rate 60. She was subsequently admitted to the intensive care unit for further evaluation, monitoring and treatment recommendations. The patient was seen and examined at her bedside on the third floor cardiac stepdown unit on 01/09/2020. The patient is more awake and alert today and is answering questions appropriately, she is alert and oriented 3. She continues to have complaints of itching to her blood blisters, raised red vesicles to her bilateral upper and lower extremities and to her back. Her Coumadin remains on hold due to these multiple blood blisters. The patient reports that she developed these blood blisters after taking Lyrica. She remains afebrile the last 24 hours. Labs today show a WBC count 12.5, hemoglobin 7.7, platelets 380, BUN 16 and creatinine 0.71. Oxygen saturations are 98% on room air. She continues to have some swelling and some significant bruising to her right upper extremity. The venous Doppler study of her upper extremities completed yesterday was negative for DVT. A 2-D echocardiogram was also completed yesterday which demonstrated an overall left ventricular systolic function to be normal with an ejection fraction between 55 and 60%, no evidence of aortic valve regurgitation, moderate to severe mitral valve regurgitation, mild to moderate tricuspid regurgitation with moderate pulmonary hypertension and no pulmonic valve regurgitation. Objective - Vital Signs Vital signs: Vital Signs Temp 97.6 F 01/09/20 11:59 Pulse 61 01/09/20 11:59 Resp 16 01/09/20 11:59 BP 143/63 01/09/20 11:59 Pulse Ox 98 01/09/20 11:59 Intake & Output 01/08/20 01/09/20 01/09/20 18:59 06:59 18:59 Intake Total 1046 360 720 Output Total 150 Balance 1046 210 720 Weight 62.2 kg Intake: IV 500 360 Sodium Chloride 0.9% 1, 500 360 000 ml @ 40 mls/hr IV . Q24H [facility] Rx#:[id number] Oral 236 720 Blood Product 310 Rc Pheresis 2 As3 Unit 310 [id number] Output: Urine 150 Other: Voiding Method Bedpan Bedpan Bedpan # Voids 1 1 # Bowel Movements 1 - Constitutional General appearance: Present: average body habitus, cooperative, no acute distress - EENT Eyes: Present: PERRLA. Absent: scleral icterus - Respiratory Details: Lung sounds essentially clear throughout, diminished for right lower lobe. Respirations are symmetrical and nonlabored. No wheezes, rhonchi or crackles. - Cardiovascular Details: Regular rhythm and rate. S1 and S2 present, negative for S3, gallop or murmur. - Gastrointestinal Gastrointestinal Comment(s): Abdomen is soft, nontender and nondistended. Active bowel sounds present, quadrants. No guarding or rigidity. No organomegaly. - Integumentary Integumentary Comment(s): skin is warm and dry. No clubbing or cyanosis is present. Significant bruising to her right upper extremity. Scattered petechial rash to her bilateral upper and lower extremities, back and lower left quadrant abdomen. - Neurologic Neurologic: Present: CNII-XII intact - Musculoskeletal Musculoskeletal: Present: generalized weakness, strength equal bilaterally - Psychiatric Psychiatric: Present: A&O x's 3, appropriate affect, intact judgment & insight - Allied health notes Allied health notes reviewed: nursing - Labs CBC & Chem 7: 01/09/20 06:00 01/09/20 06:00 Labs: Abnormal Lab Results - Last 24 Hours (Table) 01/07/20 01/08/20 01/09/20 Range/Units 12:15 22:41 06:00 WBC 12.3 H 12.5 H (3.8-10.6) k/uL RBC 2.75 L 2.71 L (3.80-5.40) m/uL Hgb 7.6 L 7.7 L (11.4-16.0) gm/dL Hct 23.8 L 23.6 L (34.0-46.0) % RDW 17.5 H 17.7 H (11.5-15.5) % Neutrophils # 8.9 H (1.3-7.7) k/uL Monocytes # 1.1 H (0-1.0) k/uL Chloride (98-107) mmol/L Crossmatch See Detail 01/09/20 Range/Units 06:00 WBC (3.8-10.6) k/uL RBC (3.80-5.40) m/uL Hgb (11.4-16.0) gm/dL Hct (34.0-46.0) % RDW (11.5-15.5) % Neutrophils # (1.3-7.7) k/uL Monocytes # (0-1.0) k/uL Chloride 108 H (98-107) mmol/L Crossmatch Microbiology - Last 24 Hours (Table) 01/07/20 15:16 Blood Culture - Preliminary Blood No Growth after 24 hours 01/07/20 12:20 Urine Culture - Final Urine,Catheterized - Imaging and Cardiology 2-D echocardiogram and venous Doppler studies of the bilateral upper extremity reports reviewed. Assessment and Plan Assessment: 1. Acute blood loss anemia secondary to falls and supratherapeutic INR, she has received 2 units of PRBCs and 2 units of FFP. 2. Chronic atrial fibrillation, on Coumadin at home for anticoagulation. 3. Multiple blood blisters with dark old hemorrhagic vesicles to her bilateral upper and lower extremities, back and left lower quadrant abdomen. 4. Chronic congestive heart failure, ejection fraction unknown, history of status post AICD placement 5. History of hypertension, on losartan at home 6. History of depression Plan: 1. The patient was seen and examined at her bedside on the cardiac stepdown unit with Dr. Ansari. 2. 2-D echocardiogram results reviewed. 3. Venous Doppler study of her bilateral upper extremities negative for DVT, continue to monitor swelling of her right upper extremity. Radial and Ulnar pulses continued to be palpable. 4. Continue Cefepime for possible UTI. Continue antibiotics for least another 24 hours until final culture results are back. The patient remains afebrile. 5. Continue to hold Coumadin, due to possible reaction from the Coumadin and multiple blood blisters with dark old hemorrhagic vesicles which seems to be old in nature. 6. Continue to follow hemoglobin. Repeat CBC in the a.m. 7. Continue GI prophylaxis. 8. We will continue to follow the patient and make further recommendations based on patient's clinical course. This was a joint evaluation done between the nurse practitioner and Dr. Katelyn Ansari. Time with Patient: Less than 30
--- NOTE | 2020-01-09 15:04 | PN ---
PROGRESS NOTE DATE OF DICTATION: 01/09/2020 Patient is an 84-year-old pleasant white female admitted to the hospital with severe symptomatic anemia requiring 2 units of blood transfusion. She was noted to have a hemoglobin of 6.8 g/dL. Today it is 7.9 g/dL. She also has atrial fibrillation on Coumadin with an INR of more than 10 and it was reversed with vitamin K and fresh frozen plasma. Since being in the hospital, she denies any symptoms. No abdominal pain. No nausea, no vomiting. No rectal bleeding or melena. As mentioned earlier, she had an EGD colonoscopy at [facility] in February of 2019 and records are still pending at the time of this dictation. PHYSICAL EXAMINATION: She appears comfortable, in no apparent distress. Vital signs are stable. Blood pressure is 143/63, pulse is 61, temperature 97.6. HEENT: Examination unremarkable. Conjunctivae are pink. Sclerae nonicteric. Oral cavity no lesions. NECK: No JVD or lymph node enlargement. CHEST: Clear to auscultation. HEART: Regular rate and rhythm. ABDOMEN: Soft. Bowel sounds are positive. No organomegaly. EXTREMITIES: No pedal edema. Multiple hemorrhagic spots noted on the lower extremities. NEUROLOGIC: Alert and oriented x2. No focal deficits. LABS: From today WBC 12.5, hemoglobin 7.7, platelets normal. Basic metabolic panel is within normal. IMPRESSION: 1. Severe symptomatic anemia with a hemoglobin of 6.8, requiring 2 units of blood transfusion, most likely dealing with occult GI blood loss. Clinically, no evidence of active bleeding as mentioned. She did have a colonoscopy. It appears like that she had a hospital 6-8 months ago, results of which are not available at the time of this dictation. 2. Atrial fibrillation on Coumadin, currently on hold, coagulopathy has been reversed. Patient doing well. RECOMMENDATION: 1. Await records from [facility]. 2. Since no active bleeding, will not plan on any endoscopy intervention at the present time. 3. Advance diet as tolerated and will follow with you closely. Thank you for this consultation. MMODL / IJN: [id number] /
[2020-01-09 18:47] LABS: Reticulocyte % 5.35 % (0.10-1.80)
[2020-01-09 19:04] LABS: % Iron Saturation 14.16 (12.00-45.00)
[2020-01-09 19:13] LABS: Ferritin 58.5 ng/mL (10.0-291.0)
[2020-01-09] MEDS: Acetaminophen-Codeine 300-30mg TAB PO PRN (20:26)
[2020-01-10] MEDS: LEVOTHYROXINE 112 MCG TAB PO SCH (06:23)
[2020-01-10] MEDS: CARVEDILOL 6.25 MG TAB PO SCH ×2 (06:23→16:34)
[2020-01-10] MEDS: Acetaminophen-Codeine 300-30mg TAB PO PRN ×2 (06:24→18:12)
[2020-01-10 06:36] LABS: Anisocytosis Slight; Basophils # (A) 0.1 k/uL (0-0.2); Basophils % (A) 1 %; Eosinophils # (A) 0.4 k/uL (0-0.7); Eosinophils % (A) 3 %; HCT 24.6 % (34.0-46.0); HGB 7.7 gm/dL (11.4-16.0); Hypochromasia Slight; Lymphocytes # (A) 1.6 k/uL (1.0-4.8); Lymphocytes % (A) 13 %; MCH 27.6 pg (25.0-35.0); MCHC 31.2 g/dL (31.0-37.0); MCV 88.5 fL (80.0-100.0); Mean Platelet Volume 7.4; Monocytes # (A) 1.1 k/uL (0-1.0); Monocytes % (A) 9 %; Neutrophils # (A) 9.3 k/uL (1.3-7.7); Neutrophils % (A) 73 %; Platelet Count 359 k/uL (150-450); Poikilocytosis Slight; RBC 2.78 m/uL (3.80-5.40); WBC 12.7 k/uL (3.8-10.6)
[2020-01-10 07:05] LABS: Calcium 8.7 mg/dL (8.4-10.2); Potassium 4.2 mmol/L (3.5-5.1)
[2020-01-10] MEDS: PANTOPRAZOLE 40 MG/10 ML VIAL IV SCH (08:37)
[2020-01-10] MEDS: GABAPENTIN 300 MG CAP PO SCH ×3 (08:38→20:53)
[2020-01-10] MEDS: CEFEPIME 2 GM in SODIUM CHLORIDE 0.9% 100 ML IVPB SCH ×2 (08:38→20:52)
[2020-01-10] MEDS: LOSARTAN 50 MG TAB PO SCH (08:38)
[2020-01-10] MEDS: ACETAMINOPHEN TAB 325 MG TAB PO PRN ×2 (09:51→20:52)
--- NOTE | 2020-01-10 13:04 | PN ---
PROGRESS NOTE DATE OF DICTATION: Patient is an 84-year-old pleasant white female admitted to hospital with severe symptomatic anemia and hemoglobin of 6.5 g/dL. She also has been on Coumadin at the time of admission to the hospital, had significantly increased INR to more than 10, received vitamin K and fresh frozen plasma and Coumadin coagulopathy has been reversed. 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 No colonoscopy was done. The patient now presently denies any symptoms. She reports no abdominal pain. No nausea, vomiting, no bleeding. Her last hemoglobin is 7.7 g/dL, Coumadin has been on hold. PHYSICAL EXAMINATION: She appears comfortable, in no apparent distress. Vital signs are stable. Blood pressure is 133/63, pulse 80, temperature 98.1. HEENT: Examination unremarkable, conjunctivae are pink, sclerae nonicteric, oral cavity no lesions. NECK: No JVD or lymph node enlargement. CHEST: Clear to auscultation. HEART: Regular rate and rhythm. ABDOMEN: Soft. Bowel sounds are positive. No organomegaly. EXTREMITIES: No pedal edema. SKIN: No rashes. NEURO: She is alert and oriented x3. No focal deficits. LABS: Done today, WBC 12.7, hemoglobin 7.7, platelets normal. Basic metabolic panel is within normal limits. Serum iron is 47, TIBC 322, iron saturation is 14% and serum ferritin is 58. IMPRESSION: 1. Severe symptomatic anemia with Hemoccult-positive stool. Clinically, no evidence of active bleeding. Her initial hemoglobin was 6.5 requiring 2 units of blood transfusion. Today, hemoglobin is 7.7 g/dL. Most likely we are dealing with occult gastrointestinal blood loss, aggravated with Coumadin. 2. History of atrial fibrillation on Coumadin, currently on hold. RECOMMENDATION: Had a lengthy discussion with the patient about further workup. At this time, will recommend an EGD and colonoscopy to evaluate this further. Discussed with the patient risks, benefits and complications and she is agreeable to it. In the meantime, will continue to hold off on the Coumadin and follow her closely during hospital stay. Thank you for this consultation. MMODL / IJN: [id number] /
[2020-01-10] MEDS: SODIUM CHLORIDE 0.9% 1,000 ML IV SCH (15:41)
[2020-01-10] MEDS ORDERED: PEG 3350-NA SULF,BICARB,CL/KCL 4,000 ML BOTTLE PO ONE (16:00)
--- NOTE | 2020-01-10 23:28 | P.PN ---
Subjective Progress Note Date: 01/08/20 Principal diagnosis: Acute blood loss anemia supratherapeutic INR level. Patient is a 83-year-old female with a known history of chronic atrial fibrillation on anticoagulation with Coumadin, history of pacemaker/AICD placement, chronic CHF, depression and other medical problems was brought to the hospital due to generalized weakness and lethargic. Patient lives by herself at home. Since last she has been having generalized weakness and shortness of breath with walking. Patient is accompanied by her daughter who is able to provide history. Daughter went to pick her up cultures she has not been feeling well. She has not been eating well and excessively tired recently. Patient has bruising all over the body on the extremities and also on the chest. 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 Denied any hematemesis or melena. Denied any [id number] pain medication use. No nausea vomiting or diarrhea. No dysuria or hematuria. Denied any complaints of fever or chills. No cough or sputum production. Denied any sick contacts at home. No history of prior GI bleed. Patient had EGD several years ago was negative for an acute bleeding. Patient was found to have hemoglobin level .8 and INR greater than 10. Elevated PT. WBC count 24.9 lactic acid 5.5 and urinalysis showed cloudy and elevated WBC counts and leukocyte esterase positive. Patient had CT head/cervical spine and CT abdomen and pelvis in the ER. Showed no acute bleeding. No retroperitoneal hemorrhage. EKG showed ventricular paced rhythm. Rate around 60. Patient was given a dose of vancomycin and cefepime in the ER. 1 unit of PRBC was ordered. 01/08/2020 Patient is awake and alert and oriented. Does complaining of swelling of the fingers and pain. Hemoglobin dropped down to 6.5 today. will be transfused with 1 unit of PRBC. INR was normalized. Patient does have right upper ex in the ecchymosis/discoloration and swelling. Continue with hand elevation. Duplex scan is negative for DVT. Pulmonary and GI is following. Patient has been afebrile. Current medications reviewed. Objective - Vital Signs Vital signs: Vital Signs Temp 97.9 F 01/08/20 20:00 Pulse 61 01/08/20 20:00 Resp 18 01/08/20 20:00 BP 148/37 01/08/20 20:00 Pulse Ox 98 01/08/20 20:00 Intake & Output 01/08/20 01/08/20 01/09/20 06:59 18:59 06:59 Intake Total 2120 1046 Output Total 400 150 Balance 1720 1046 -150 Weight 62.2 kg 62.2 kg Intake: IV 1150 500 Sodium Chloride 0.9% 1, 900 500 000 ml @ 40 mls/hr IV . Q24H [facility] Rx#:[id number] Vancomycin 1,000 mg In 250 Sodium Chloride 0.9% 250 ml @ 125 mls/hr IVPB ONCE STA Rx#:[id number] Intake, IV Titration 100 Amount Cefepime 2 gm In Sodium 100 Chloride 0.9% 100 ml @ 200 mls/hr IVPB ONCE STA Rx#:[id number] Oral 236 Blood Product 870 310 Ffp 24 Pher Acda Unit 218 [id number] Ffp 24 Pher Acda Cnt1 218 Unit [id number] Rc Pheresis 2 As3 Unit 310 [id number] Output: Urine 400 150 Other: Voiding Method Bedpan Bedpan # Voids 1 # Bowel Movements 1 - Exam PHYSICAL EXAMINATION: Patient is lying in the bed comfortably, no acute distress, awake alert and oriented.. HEENT: Normocephalic. Neck is supple. Pupils reactive. Nostrils clear. Oral cavity is moist. Ears reveal no drainage. Neck reveals no JVD, carotid bruits, or thyromegaly. CHEST EXAMINATION: Trachea is central. Symmetrical expansion. Bibasilar diminished air entry. Lung diaz clear to auscultation and percussion. CARDIAC: Normal S1, S2 with no gallops. No murmurs ABDOMEN: Soft. Bowel sounds normal. No organomegaly. No abdominal bruits. Extremities: reveal no edema. Right upper activity swelling and ecchymosis. No clubbing or cyanosis Neurologically awake, alert, oriented x3 with well-coordinated movements. No focal deficits noted Skin: Patient does have blisters and crusted hemorrhagic patches all over the extremities. Psychiatric: Coperative. Nonsuicidal Musculoskeletal: No joint swelling or deformity. Normal range of motion. - Labs CBC & Chem 7: 01/10/20 05:55 01/10/20 05:55 Labs: Abnormal Lab Results - Last 24 Hours (Table) 03/29/20 03/29/20 03/29/20 Range/Units 12:15 22:37 22:37 WBC 23.7 H (3.8-10.6) k/uL RBC 2.82 L (3.80-5.40) m/uL Hgb 7.6 L (11.4-16.0) gm/dL Hct 24.8 L (34.0-46.0) % MCHC 30.6 L (31.0-37.0) g/dL RDW 17.4 H (11.5-15.5) % Neutrophils # 18.2 H (1.3-7.7) k/uL Monocytes # 2.6 H (0-1.0) k/uL PT (9.0-12.0) sec INR (<1.2) Sodium (137-145) mmol/L BUN (7-17) mg/dL Plasma Lactic Acid Kamran 2.1 H* (0.7-2.0) mmol/L Crossmatch See Detail 01/08/20 01/08/20 01/08/20 Range/Units 04:11 04:11 04:11 WBC 16.0 H (3.8-10.6) k/uL RBC 2.37 L (3.80-5.40) m/uL Hgb 6.5 L* (11.4-16.0) gm/dL Hct 20.4 L (34.0-46.0) % MCHC (31.0-37.0) g/dL RDW 17.4 H (11.5-15.5) % Neutrophils # 12.8 H (1.3-7.7) k/uL Monocytes # 1.5 H (0-1.0) k/uL PT 15.0 H (9.0-12.0) sec INR 1.5 H (<1.2) Sodium 134 L (137-145) mmol/L BUN 18 H (7-17) mg/dL Plasma Lactic Acid Kamran (0.7-2.0) mmol/L Crossmatch Microbiology - Last 24 Hours (Table) 01/07/20 15:16 Blood Culture - Preliminary Blood No Growth after 24 hours 01/07/20 12:20 Urine Culture - Final Urine,Catheterized Assessment and Plan Assessment: Symptomatic anemia Acute blood loss anemia due to generalized bruising. Hemoglobin 6.8 Acute urinary tract infection Supratherapeutic INR level Chronic atrial fibrillation on anticoagulation with Coumadin. status post AICD placement history Chronic CHF. Ejection fraction unknown. Depression DVT prophylaxis patient is already has supratherapeutic: Level GI prophylaxis. With PPI Plan: Patient will be transfused with 1 unit of PRBC and monitor his and his closely. Was given 2 units so far. Patient was given a dose of vitamin K in the ER. Follow-up INR level. Coumadin is on hold. Patient will be continued on PPI. GI pulmonary is following.. Patient will be continued on antibiotics in the form of cefepime and follow-up urine culture report. Continue the home medications and further recommendations based on the clinical course. Patient Is being transferred to medical floor.. Time with Patient: Greater than 30
[2020-01-10] MEDS: hydrALAZINE HCL 25 MG TAB PO PRN (23:31)
--- NOTE | 2020-01-10 23:34 | P.PN ---
Subjective Progress Note Date: 01/09/20 Principal diagnosis: Acute blood loss anemia supratherapeutic INR level. Patient is a 83-year-old female with a known history of chronic atrial fibrillation on anticoagulation with Coumadin, history of pacemaker/AICD placement, chronic CHF, depression and other medical problems was brought to the hospital due to generalized weakness and lethargic. Patient lives by herself at home. Since last she has been having generalized weakness and shortness of breath with walking. Patient is accompanied by her daughter who is able to provide history. Daughter went to pick her up cultures she has not been feeling well. She has not been eating well and excessively tired recently. Patient has bruising all over the body on the extremities and also on the chest. 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 Denied any hematemesis or melena. Denied any [id number] pain medication use. No nausea vomiting or diarrhea. No dysuria or hematuria. Denied any complaints of fever or chills. No cough or sputum production. Denied any sick contacts at home. No history of prior GI bleed. Patient had EGD several years ago was negative for an acute bleeding. Patient was found to have hemoglobin level .8 and INR greater than 10. Elevated PT. WBC count 24.9 lactic acid 5.5 and urinalysis showed cloudy and elevated WBC counts and leukocyte esterase positive. Patient had CT head/cervical spine and CT abdomen and pelvis in the ER. Showed no acute bleeding. No retroperitoneal hemorrhage. EKG showed ventricular paced rhythm. Rate around 60. Patient was given a dose of vancomycin and cefepime in the ER. 1 unit of PRBC was ordered. 01/08/2020 Patient is awake and alert and oriented. Does complaining of swelling of the fingers and pain. Hemoglobin dropped down to 6.5 today. will be transfused with 1 unit of PRBC. INR was normalized. Patient does have right upper ex in the ecchymosis/discoloration and swelling. Continue with hand elevation. Duplex scan is negative for DVT. Pulmonary and GI is following. Patient has been afebrile. 01/09/2020 Patient is currently awake and alert oriented 3. Does complain of pain and swelling of the fingers and upper extremities mainly right upper ex daily ecchymosis and blisters. Coumadin is on hold. Hemoglobin is stable at 7.7. Urine culture showed no growth. WBC count 12.5 and creatinine level 0.71. 2-D echocardiogram showed left ventricular systolic function to be normal with ejection fraction 55-60%. No evidence of aortic valve regurgitation. Moderate to severe mitral valve rgitation mild to moderate tricuspid regurgitation and moderate pulmonary hypertension. GI and pulmonary is following. Tolerating oral diet. No complaints of nausea or vomiting. No hematemesis or melena. Current medications reviewed. Objective - Vital Signs Vital signs: Vital Signs Temp 97.9 F 01/09/20 20:33 Pulse 60 01/09/20 20:33 Resp 18 01/09/20 20:33 BP 148/72 01/09/20 20:33 Pulse Ox 96 01/09/20 20:33 Intake & Output 01/09/20 01/09/20 01/10/20 06:59 18:59 06:59 Intake Total 360 1260 40 Output Total 150 0 Balance 210 1260 40 Intake: IV 360 40 Sodium Chloride 0.9% 1, 360 40 000 ml @ 40 mls/hr IV . Q24H [facility] Rx#:[id number] Oral 1260 Output: Urine 150 0 Other: Voiding Method Bedpan Bedpan Bedpan # Voids 1 1 - Exam PHYSICAL EXAMINATION: Patient is lying in the bed comfortably, no acute distress, awake alert and oriented.. HEENT: Normocephalic. Neck is supple. Pupils reactive. Nostrils clear. Oral cavity is moist. Ears reveal no drainage. Neck reveals no JVD, carotid bruits, or thyromegaly. CHEST EXAMINATION: Trachea is central. Symmetrical expansion. Bibasilar diminished air entry. Lung diaz clear to auscultation and percussion. CARDIAC: Normal S1, S2 with no gallops. No murmurs ABDOMEN: Soft. Bowel sounds normal. No organomegaly. No abdominal bruits. Extremities: reveal no edema. Right upper activity swelling and ecchymosis. No clubbing or cyanosis Neurologically awake, alert, oriented x3 with well-coordinated movements. No focal deficits noted Skin: Patient does have blisters and crusted hemorrhagic patches all over the extremities. Psychiatric: Coperative. Nonsuicidal Musculoskeletal: No joint swelling or deformity. Normal range of motion. - Labs CBC & Chem 7: 01/10/20 05:55 01/10/20 05:55 Labs: Abnormal Lab Results - Last 24 Hours (Table) 01/08/20 01/09/20 01/09/20 Range/Units 22:41 06:00 06:00 WBC 12.3 H 12.5 H (3.8-10.6) k/uL RBC 2.75 L 2.71 L (3.80-5.40) m/uL Hgb 7.6 L 7.7 L (11.4-16.0) gm/dL Hct 23.8 L 23.6 L (34.0-46.0) % RDW 17.5 H 17.7 H (11.5-15.5) % Neutrophils # 8.9 H (1.3-7.7) k/uL Monocytes # 1.1 H (0-1.0) k/uL Retic Count (0.10-1.80) % Chloride 108 H (98-107) mmol/L Iron (50-170) ug/dL 01/09/20 01/09/20 Range/Units 06:00 06:00 WBC (3.8-10.6) k/uL RBC (3.80-5.40) m/uL Hgb (11.4-16.0) gm/dL Hct (34.0-46.0) % RDW (11.5-15.5) % Neutrophils # (1.3-7.7) k/uL Monocytes # (0-1.0) k/uL Retic Count 5.35 H (0.10-1.80) % Chloride (98-107) mmol/L Iron 47 L (50-170) ug/dL Microbiology - Last 24 Hours (Table) 01/07/20 15:16 Blood Culture - Preliminary Blood No Growth after 48 hours Assessment and Plan Assessment: Symptomatic anemia Acute blood loss anemia due to generalized bruising. Hemoglobin 6.8--6.5--7.7 Acute urinary tract infection and urine cultures showed no growth. Supratherapeutic INR level. Normalized now Chronic atrial fibrillation on anticoagulation with Coumadin. status post AICD placement history Chronic CHF with preserved ejection fraction.. Moderate mitral valve regurgitation and moderate pulmonary hypertension. Depression DVT prophylaxis patient was supratherapeutic on admission. GI prophylaxis. With PPI Plan: Patient will be transfused with 1 unit of PRBC and monitor his and his closely. Was given 2 units so far. Patient was given a dose of vitamin K in the ER. Follow-up INR level. Normalized now. Coumadin is on hold. Patient will be continued on PPI. GI pulmonary is following.. Patient will be continued on antibiotics in the form of cefepime and follow-up urine culture report. Urine culture showed no growth. Continue the home medications and further recommendations based on the clinical course. Time with Patient: Greater than 30
--- NOTE | 2020-01-10 23:36 | P.PN ---
Subjective Progress Note Date: 01/10/20 Principal diagnosis: Acute blood loss anemia supratherapeutic INR level. Patient is a 83-year-old female with a known history of chronic atrial fibrillation on anticoagulation with Coumadin, history of pacemaker/AICD placement, chronic CHF, depression and other medical problems was brought to the hospital due to generalized weakness and lethargic. Patient lives by herself at home. Since last she has been having generalized weakness and shortness of breath with walking. Patient is accompanied by her daughter who is able to provide history. Daughter went to pick her up cultures she has not been feeling well. She has not been eating well and excessively tired recently. Patient has bruising all over the body on the extremities and also on the chest. 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 Denied any hematemesis or melena. Denied any [id number] pain medication use. No nausea vomiting or diarrhea. No dysuria or hematuria. Denied any complaints of fever or chills. No cough or sputum production. Denied any sick contacts at home. No history of prior GI bleed. Patient had EGD several years ago was negative for an acute bleeding. Patient was found to have hemoglobin level .8 and INR greater than 10. Elevated PT. WBC count 24.9 lactic acid 5.5 and urinalysis showed cloudy and elevated WBC counts and leukocyte esterase positive. Patient had CT head/cervical spine and CT abdomen and pelvis in the ER. Showed no acute bleeding. No retroperitoneal hemorrhage. EKG showed ventricular paced rhythm. Rate around 60. Patient was given a dose of vancomycin and cefepime in the ER. 1 unit of PRBC was ordered. 01/08/2020 Patient is awake and alert and oriented. Does complaining of swelling of the fingers and pain. Hemoglobin dropped down to 6.5 today. will be transfused with 1 unit of PRBC. INR was normalized. Patient does have right upper ex in the ecchymosis/discoloration and swelling. Continue with hand elevation. Duplex scan is negative for DVT. Pulmonary and GI is following. Patient has been afebrile. 01/09/2020 Patient is currently awake and alert oriented 3. Does complain of pain and swelling of the fingers and upper extremities mainly right upper ex daily ecchymosis and blisters. Coumadin is on hold. Hemoglobin is stable at 7.7. Urine culture showed no growth. WBC count 12.5 and creatinine level 0.71. 2-D echocardiogram showed left ventricular systolic function to be normal with ejection fraction 55-60%. No evidence of aortic valve regurgitation. Moderate to severe mitral valve rgitation mild to moderate tricuspid regurgitation and moderate pulmonary hypertension. GI and pulmonary is following. Tolerating oral diet. No complaints of nausea or vomiting. No hematemesis or melena. 01/10/2020 Patient is currently lying in the bed comfortably. No complaints of chest pain or shortness of breath. Hemoglobin is stable at 7.7. Coumadin is on hold. Otherwise right upper extremity swelling and ecchymosis and blisters with slight improvement. duplex scan is negative for DVT. Continue on hand elevation and pain management. Patient has been afebrile. Will be started on PT OT. GI is planning for EGD and colonoscopy tomorrow. No headache or dizziness. Current medications reviewed. Objective - Vital Signs Vital signs: Vital Signs Temp 97.6 F 01/10/20 20:30 Pulse 62 01/10/20 20:30 Resp 22 01/10/20 20:30 BP 182/80 01/10/20 22:57 Pulse Ox 96 01/10/20 20:30 Intake & Output 01/10/20 01/10/20 01/11/20 06:59 18:59 06:59 Intake Total 360 960 Output Total 0 Balance 360 960 Intake: IV 360 Sodium Chloride 0.9% 1, 360 000 ml @ 40 mls/hr IV . Q24H [facility] Rx#:[id number] Oral 960 Output: Urine 0 Other: Voiding Method Bedpan Bedpan Bedpan Diaper Diaper Diaper # Voids 1 2 # Bowel Movements 5 - Exam PHYSICAL EXAMINATION: Patient is lying in the bed comfortably, no acute distress, awake alert and oriented.. HEENT: Normocephalic. Neck is supple. Pupils reactive. Nostrils clear. Oral cavity is moist. Ears reveal no drainage. Neck reveals no JVD, carotid bruits, or thyromegaly. CHEST EXAMINATION: Trachea is central. Symmetrical expansion. Bibasilar diminished air entry. Lung diaz clear to auscultation and percussion. CARDIAC: Normal S1, S2 with no gallops. No murmurs ABDOMEN: Soft. Bowel sounds normal. No organomegaly. No abdominal bruits. Extremities: reveal no edema. Right upper activity swelling and ecchymosis. No clubbing or cyanosis Neurologically awake, alert, oriented x3 with well-coordinated movements. No focal deficits noted Skin: Patient does have blisters and crusted hemorrhagic patches all over the extremities. Psychiatric: Coperative. Nonsuicidal Musculoskeletal: No joint swelling or deformity. Normal range of motion. - Labs CBC & Chem 7: 01/10/20 05:55 01/10/20 05:55 Labs: Abnormal Lab Results - Last 24 Hours (Table) 01/07/20 01/10/20 01/10/20 Range/Units 12:15 05:55 05:55 WBC 12.7 H (3.8-10.6) k/uL RBC 2.78 L (3.80-5.40) m/uL Hgb 7.7 L (11.4-16.0) gm/dL Hct 24.6 L (34.0-46.0) % RDW 19.0 H (11.5-15.5) % Neutrophils # 9.3 H (1.3-7.7) k/uL Monocytes # 1.1 H (0-1.0) k/uL Sodium 136 L (137-145) mmol/L Glucose 109 H (74-99) mg/dL Crossmatch See Detail Microbiology - Last 24 Hours (Table) 01/07/20 15:16 Blood Culture - Preliminary Blood No Growth after 72 hours Assessment and Plan Assessment: Symptomatic anemia Acute blood loss anemia due to generalized bruising. Hemoglobin 6.8--6.5--7.7 Acute urinary tract infection and urine cultures showed no growth. Supratherapeutic INR level. Normalized now Chronic atrial fibrillation on anticoagulation with Coumadin. status post AICD placement history Chronic CHF with preserved ejection fraction.. Moderate mitral valve regurgitation and moderate pulmonary hypertension. Depression DVT prophylaxis patient was supratherapeutic on admission. GI prophylaxis. With PPI Plan: Patient will be transfused with 1 unit of PRBC and monitor his and his closely. Was given 2 units so far. Patient was given a dose of vitamin K in the ER. Follow-up INR level. Normalized now. Coumadin is on hold. Patient will be continued on PPI. GI pulmonary is following.. Patient will be continued on antibiotics in the form of cefepime and follow-up urine culture report. Urine culture showed no growth. Continue the home medications and further recommendations based on the clinical course. Time with Patient: Greater than 30
[2020-01-11] MEDS: Acetaminophen-Codeine 300-30mg TAB PO PRN ×4 (01:05→21:59)
[2020-01-11] MEDS: hydrALAZINE HCL 25 MG TAB PO PRN (06:15)
[2020-01-11 07:32] LABS: Anisocytosis Moderate; HCT 25.4 % (34.0-46.0); HGB 8.1 gm/dL (11.4-16.0); Hypochromasia Slight; MCH 29.1 pg (25.0-35.0); MCV 90.9 fL (80.0-100.0); Macrocytosis Slight; Mean Platelet Volume 7.6; Platelet Count 349 k/uL (150-450); Poikilocytosis Slight; RBC 2.79 m/uL (3.80-5.40); RDW 20.4 % (11.5-15.5); WBC 11.1 k/uL (3.8-10.6)
[2020-01-11 07:41] LABS: INR 1.2 (<1.2); Prothrombin Time 12.1 sec (9.0-12.0)
[2020-01-11] MEDS: CARVEDILOL 6.25 MG TAB PO SCH ×2 (07:44→16:07)
[2020-01-11] MEDS: CEFEPIME 2 GM in SODIUM CHLORIDE 0.9% 100 ML IVPB SCH ×2 (07:44→20:30)
[2020-01-11] MEDS: LOSARTAN 50 MG TAB PO SCH (07:44)
[2020-01-11] MEDS: GABAPENTIN 300 MG CAP PO SCH ×3 (07:44→20:30)
[2020-01-11] MEDS: PANTOPRAZOLE 40 MG/10 ML VIAL IV SCH (07:45)
[2020-01-11] MEDS: LEVOTHYROXINE 112 MCG TAB PO SCH (08:39)
[2020-01-11] MEDS ORDERED: PROPOFOL 10 MG/ML 20 ML VIAL IV ONE (09:14)
[2020-01-11] MEDS ORDERED: LIDOCAINE 1% INJ 10MG/ML (20 ML MDV) ONE (09:14)
[2020-01-11] MEDS ORDERED: IV FLUID CONTINUATION 400 ML IV ONE (09:39)
--- NOTE | 2020-01-11 09:42 | P.PCN ---
Date of Procedure: 01/11/20 Procedure(s) Performed: Brief history: Patient is a pleasant 84-year-old white female admitted hospital with hemoglobin of 6.8 requiring 2 units of the transition. She has A. fib and has been on Coumadin which is currently on hold. She had a supratherapeutic INR was reversed with vitamin K and fresh wasn't plasma. INR is 1.2 today. She is scheduled for an scheduled for an upper endoscopy as well as colonoscopy as a part of evaluation of severe symptomatic anemia. Procedure performed: Esophagogastroduodenoscopy with biopsy Colonoscopy Preoperative diagnosis: Severe symptomatic anemia and Hemoccult-positive stool [place]est[place]: [facility] [place] Procedure: After informed consent was obtained from the patient was brought into the endoscopy unit and IV sedation was administered by anesthesia under continuous monitoring. Initially upper endoscopy was done. The Olympus GF 160 video endoscope was inserted inserted into the mouth and esophagus intubated without any difficulty and was gradually advanced into the stomach and duodenum and carefully examined. The bulb and second part of the duodenum appeared normal. The scope was then withdrawn into the stomach adequately insufflated with air and upon careful examination the antrum had a superficial healed antral ulcer which was biopsied. The body, cardia and fundus appeared normal. The scope was then withdrawn into the esophagus. small sliding type hiatal hernia noted The GE junction was located at 40 cm to the incisors. It appeared regular with no erythema erosions or ulcerations. Rest of the esophagus appeared normal. Patient tolerated the procedure well. At this time the patient continued to remain sedation. Initial digital rectal examination was normal. Olympus CF 160 video colonoscope was then inserted into the rectum and gradually advanced to the cecum without any difficulty. Careful examination was performed as the scope was gradually being withdrawn. The prep was excellent. The cecum, ascending colon, transverse colon, descending colon, sigmoid colon and rectum appeared normal. Retroflexion was performed in the re ctum and no lesions were noted. Patient tolerated the procedure well. Impression: 1. Upper endoscopy revealed a superficial healed antral ulcer and small hiatal hernia. No evidence of active bleeding or angiectasia identified 2. Colonoscopy revealed diffuse scattered diverticulosis but no evidence of colorectal neoplasia Recommendations: Findings of this examination were discussed with the patient.she will be scheduled for a small bowel capsule endoscopy today to evaluate for anemia and Hemoccult-positive stool. Diet will be initiated after the small bowel capsule endoscopy is done.
[2020-01-11] MEDS ORDERED: LACTATED RINGERS 1,000 ML IV SCH ×2 (11:01)
[2020-01-11] MEDS ORDERED: SIMETHICONE 40 MG/0.6 ML DROPS 2,000 MG/30 ML BOTTLE PO ONE (11:23)
--- NOTE | 2020-01-11 22:52 | P.PN ---
Subjective Progress Note Date: 01/11/20 Principal diagnosis: Acute blood loss anemia supratherapeutic INR level. Patient is a 83-year-old female with a known history of chronic atrial fibrillation on anticoagulation with Coumadin, history of pacemaker/AICD placement, chronic CHF, depression and other medical problems was brought to the hospital due to generalized weakness and lethargic. Patient lives by herself at home. Since last she has been having generalized weakness and shortness of breath with walking. Patient is accompanied by her daughter who is able to provide history. Daughter went to pick her up cultures she has not been feeling well. She has not been eating well and excessively tired recently. Patient has bruising all over the body on the extremities and also on the chest. 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 Denied any hematemesis or melena. Denied any kdzi-[id number] pain medication use. No nausea vomiting or diarrhea. No dysuria or hematuria. Denied any complaints of fever or chills. No cough or sputum production. Denied any sick contacts at home. No history of prior GI bleed. Patient had EGD several years ago was negative for an acute bleeding. Patient was found to have hemoglobin level .8 and INR greater than 10. Elevated PT. WBC count 24.9 lactic acid 5.5 and urinalysis showed cloudy and elevated WBC counts and leukocyte esterase positive. Patient had CT head/cervical spine and CT abdomen and pelvis in the ER. Showed no acute bleeding. No retroperitoneal hemorrhage. EKG showed ventricular paced rhythm. Rate around 60. Patient was given a dose of vancomycin and cefepime in the ER. 1 unit of PRBC was ordered. 01/08/2020 Patient is awake and alert and oriented. Does complaining of swelling of the fingers and pain. Hemoglobin dropped down to 6.5 today. will be transfused with 1 unit of PRBC. INR was normalized. Patient does have right upper ex in the ecchymosis/discoloration and swelling. Continue with hand elevation. Duplex scan is negative for DVT. Pulmonary and GI is following. Patient has been afebrile. 01/09/2020 Patient is currently awake and alert oriented 3. Does complain of pain and swelling of the fingers and upper extremities mainly right upper ex daily ecchymosis and blisters. Coumadin is on hold. Hemoglobin is stable at 7.7. Urine culture showed no growth. WBC count 12.5 and creatinine level 0.71. 2-D echocardiogram showed left ventricular systolic function to be normal with ejection fraction 55-60%. No evidence of aortic valve regurgitation. Moderate to severe mitral valve rgitation mild to moderate tricuspid regurgitation and moderate pulmonary hypertension. GI and pulmonary is following. Tolerating oral diet. No complaints of nausea or vomiting. No hematemesis or melena. 01/10/2020 Patient is currently lying in the bed comfortably. No complaints of chest pain or shortness of breath. Hemoglobin is stable at 7.7. Coumadin is on hold. Otherwise right upper extremity swelling and ecchymosis and blisters with slight improvement. duplex scan is negative for DVT. Continue on hand elevation and pain management. Patient has been afebrile. Will be started on PT OT. GI is planning for EGD and colonoscopy tomorrow. No headache or dizziness. -2019. Patient denied any complaints of chest pain or shortness of breath. Hemoglobin level improved to 8.1 today. Right upper extremity swelling did improve. Was placed on GIANA hose. Still having swelling of the right hand fingers. Patient is status post EGD today. Impression: 1. Upper endoscopy revealed a superficial healed antral ulcer and small hiatal hernia. No evidence of active bleeding or angiectasia identified 2. Colonoscopy revealed diffuse scattered diverticulosis but no evidence of colorectal neoplasia GI is planning to proceed with capsule endoscopy. Current medications reviewed. Objective - Vital Signs Vital signs: Vital Signs Temp 97.6 F 01/11/20 09:43 Pulse 58 L 01/11/20 09:43 Resp 99 H 01/11/20 09:43 BP 182/76 01/11/20 09:43 Pulse Ox 99 01/11/20 06:57 Intake & Output 01/10/20 01/11/20 01/11/20 18:59 06:59 18:59 Intake Total 960 200 Output Total 7 0 Balance 960 -7 200 Weight 76 kg Intake: IV 200 Oral 960 Output: Urine 0 Urine/Stool Mix 7 Other: Voiding Method Bedpan Bedpan Diaper Diaper # Voids 2 2 # Bowel Movements 5 - Exam PHYSICAL EXAMINATION: Patient is lying in the bed comfortably, no acute distress, awake alert and oriented.. HEENT: Normocephalic. Neck is supple. Pupils reactive. Nostrils clear. Oral cavity is moist. Ears reveal no drainage. Neck reveals no JVD, carotid bruits, or thyromegaly. CHEST EXAMINATION: Trachea is central. Symmetrical expansion. Bibasilar diminished air entry. Lung diaz clear to auscultation and percussion. CARDIAC: Normal S1, S2 with no gallops. No murmurs ABDOMEN: Soft. Bowel sounds normal. No organomegaly. No abdominal bruits. Extremities: reveal no edema. Right upper activity swelling and ecchymosis. No clubbing or cyanosis Neurologically awake, alert, oriented x3 with well-coordinated movements. No focal deficits noted Skin: Patient does have blisters and crusted hemorrhagic patches all over the extremities. Psychiatric: Coperative. Nonsuicidal Musculoskeletal: No joint swelling or deformity. Normal range of motion. - Labs CBC & Chem 7: 01/11/20 06:55 01/10/20 05:55 Labs: Abnormal Lab Results - Last 24 Hours (Table) 01/11/20 01/11/20 Range/Units 06:55 06:55 WBC 11.1 H (3.8-10.6) k/uL RBC 2.79 L (3.80-5.40) m/uL Hgb 8.1 L (11.4-16.0) gm/dL Hct 25.4 L (34.0-46.0) % RDW 20.4 H (11.5-15.5) % PT 12.1 H (9.0-12.0) sec INR 1.2 H (<1.2) Microbiology - Last 24 Hours (Table) 01/07/20 15:16 Blood Culture - Preliminary Blood No Growth after 72 hours Assessment and Plan Assessment: Symptomatic anemia Acute blood loss anemia due to generalized bruising. Possible GI bleed. Hemoglobin 6.8--6.5--7.7--8.1 Status post EGD and colonoscopy. Acute urinary tract infection and urine cultures showed no growth. Supratherapeutic INR level. Normalized now Chronic atrial fibrillation on anticoagulation with Coumadin. status post AICD placement history Chronic CHF with preserved ejection fraction.. Moderate mitral valve regurgitation and moderate pulmonary hypertension. Depression DVT prophylaxis patient was supratherapeutic on admission. GI prophylaxis. With PPI Plan: Patient will be transfused with 1 unit of PRBC and monitor his and his closely. Was given 2 units so far. Patient was given a dose of vitamin K in the ER. Follow-up INR level. Normalized now. Coumadin is on hold. Patient will be continued on PPI. GI pulmonary is following.. Patient will be continued on antibiotics in the form of cefepime and follow-up urine culture report. Urine culture showed no growth. Status post EGD and colonoscopy. Plan for capsule endoscopy. Continue the home medications and further recommendations based on the clinical course. Time with Patient: Greater than 30
[2020-01-11 23:21] VITALS: PULSE 60
[2020-01-12] MEDS: Acetaminophen-Codeine 300-30mg TAB PO PRN ×3 (03:09→16:03)
[2020-01-12] MEDS: LEVOTHYROXINE 112 MCG TAB PO SCH (05:56)
[2020-01-12] MEDS: CEFEPIME 2 GM in SODIUM CHLORIDE 0.9% 100 ML IVPB SCH (07:46)
[2020-01-12] MEDS: LOSARTAN 50 MG TAB PO SCH (07:46)
[2020-01-12] MEDS: GABAPENTIN 300 MG CAP PO SCH ×2 (07:47→15:06)
[2020-01-12] MEDS: CARVEDILOL 6.25 MG TAB PO SCH ×2 (07:47→15:06)
[2020-01-12] MEDS ORDERED: PANTOPRAZOLE 40 MG TABLET PO SCH (09:00)
[2020-01-12 11:24] LABS: Calcium 8.4 mg/dL (8.4-10.2); Potassium 4.2 mmol/L (3.5-5.1)
[2020-01-12 11:33] LABS: Anisocytosis Moderate; HCT 27.1 % (34.0-46.0); HGB 8.4 gm/dL (11.4-16.0); Hypochromasia Moderate; MCH 28.4 pg (25.0-35.0); MCHC 30.9 g/dL (31.0-37.0); MCV 91.8 fL (80.0-100.0); Macrocytosis Slight; Mean Platelet Volume 7.6; Platelet Count 393 k/uL (150-450); Poikilocytosis Slight; RBC 2.95 m/uL (3.80-5.40); RDW 21.6 % (11.5-15.5)
--- NOTE | 2020-01-12 12:01 | PN ---
PROGRESS NOTE DATE OF SERVICE: 01/12/2020 Patient is an 84-year-old pleasant white female admitted to the hospital with severe symptomatic anemia and hemoglobin of 6.5 g/dL requiring 2 units of blood transfusion and patient since then has been doing well. She has no further episodes of bleeding. Coumadin has been on hold, INR has normalized. She had an EGD colonoscopy yesterday that was unremarkable. She subsequent underwent a small bowel capsule endoscopy, results of which are still pending at the time of this dictation. Patient in the meantime is doing well. No complaints. PHYSICAL EXAMINATION: Blood pressure is 137/72, pulse is 60, temperature 98. HEENT: Examination unremarkable, conjunctivae are pink, sclerae nonicteric, oral cavity no lesions. NECK: No JVD or lymph node enlargement. CHEST: Clear to auscultation. HEART: Regular rate and rhythm. ABDOMEN: Soft, it was nontender, not distended. Bowel sounds are positive. No organomegaly. EXTREMITIES: No pedal edema. NEURO: She is alert and oriented x3. No focal deficits. LABS: Hemoglobin is 8.1 g/dL. PT, INR is 1.2. IMPRESSION: 1. Severe symptomatic anemia with a hemoglobin of 6.5 requiring 2 units of blood transfusion. Hemoglobin currently stable, since she has been off the Coumadin. She is doing well. 2. She had an EGD colonoscopy yesterday that showed mild gastritis and a small hiatal hernia and diverticulosis. Small bowel capsule endoscopy done yesterday, results of which are still pending at the time of this dictation. RECOMMENDATIONS: 1. Advance to a regular diet. 2. Will read the small bowel capsule study, once the images were downloaded today. 3. For now, hold Coumadin and we will follow with you closely. Thank you for this consultation. MMODL / IJN: [id number] /
--- NOTE | 2020-01-12 12:37 | P.PN ---
Subjective Progress Note Date: 01/12/20 Principal diagnosis: Acute metabolic encephalopathy and mental status change. And acute blood loss anemia secondary to Coumadin coagulopathy This is an 83-year-old female patient is followed by Dr. Khari Cuellar on an outpatient basis. The patient presented to the emergency department here at [facility] yesterday accompanied by her daughter for complaints of lethargy. This morning she reports that she has been having frequent falls at home and has been having some itching to her legs and arms. She denies any recent fever, cough, nausea, vomiting, melena, hematemesis, diarrhea or headache. Patient apparently lives in [facility] and her daughter lives locally went to check on her and bring her here to the hospital. She has past medical history significant for atrial fibrillation in which she takes Coumadin at home for anticoagulation, hypertension, congestive heart failure, history of pacemaker/AICD placement and coronary artery disease. The patient reports that she has been having some bruising and blood blister type eruptions to her upper and lower extremities which have been present for a while and has a large bruise to her right upper arm due to a recent fall. On admission her labs showed the WBC 24.9, Hgb 6.8, platelets 484, PT greater than 130, INR greater than 10.0, PTT 60.2, fibrinogen 515, lactic acid 5.5, CO2 18, BUN 20, creatinine 0.76, and AST 41. A urinalysis was also completed which showed urine WBC 27, and rare bacteria with her urine culture showing no growth after 18 hours. A computed tomography scan of her brain/E spine was completed which showed no acute fracture, dislocation evident of the cervical spine, no acute intracranial hemorrhage, mass effect or midline shift, mild degenerative disc disease of the cervical spine, and partial opacification of the right mastoid air cells. X- rays of the pelvis, elbow and shoulder demonstrate no acute fracture or dislocation. The initial chest x-ray showed right hemidiaphragm elevation of indeterminate chronicity and cardiomegaly. Computed tomography scan of the abdomen and pelvis demonstrated no acute compression deformity of the thoracolumbar spine, no evidence of abdominal visceral trauma or pneumoperitoneum. Initial 12-lead EKG demonstrated a ventricular paced rhythm heart rate 60. She was subsequently admitted to the intensive care unit for further evaluation, monitoring and treatment recommendations. Patient was reevaluated today on 01/12/20, patient is resting in bed, basically asymptomatic. She is alert oriented 3, she is in no form of distress, and her mental status is clear. Her hemoglobin today is 8.4. Her electrolytes and r enal profile are normal. She received a total of 2 units of packed RBCs and 2 units of fresh was a plasma since admission. Denies any specific complaints. Her EGD showed superficial healed antral ulcer and small hiatal hernia, no evidence of bleeding. Her colonoscopy showed scattered diverticulosis, no evidence of active bleeding. Hence gastroenterology is recommending a small bowel capsule endoscopy study to evaluate her anemia and Hemoccult-positive stools. Objective - Vital Signs Vital signs: Vital Signs Temp 98.3 F 01/12/20 05:26 Pulse 60 01/12/20 05:26 Resp 16 01/12/20 05:26 BP 147/72 01/12/20 05:26 Pulse Ox 97 01/12/20 05:26 Intake & Output 01/11/20 01/12/20 01/12/20 18:59 06:59 18:59 Intake Total 520 420 Output Total 0 Balance 520 420 Weight 72 kg Intake: IV 520 420 Cefepime 2 gm In Sodium 100 Chloride 0.9% 100 ml @ 200 mls/hr IVPB Q12HR [facility] Rx#:[id number] Sodium Chloride 0.9% 1, 320 320 000 ml @ 40 mls/hr IV . Q24H [facility] Rx#:[id number] Output: Urine 0 Other: Voiding Method Bedpan Diaper # Voids 1 3 1 - Exam Physical Exam: Revealed an 84-year-old female in no distress. Head: Atraumatic, normocephalic. HEENT:[Neck is supple.] [No neck masses.] [No thyromegaly.] [No JVD.] PERRLA, EOMI, no icterus, dry mucous membranes. Chest: [Clear throughout, no crackles, no rhonchi, no wheezes.] Cardiac Exam: [Normal S1 and S2, no S3 gallop, no murmur.] Abdomen: [Soft, nontender, no megaly, no rebound, no guarding, normal bowel sounds.] Extremities: [No clubbing, no edema, no cyanosis.] Significant ecchymosis noted in the area of the right forearm. Blisters and crusted hemorrhagic patches noted on lower extremities. Neurological Exam: [No focal neurologic deficit.] Patient is alert oriented 3. Psychiatric: Normal mood, affect and normal mental status examination. Skin: As noted above mostly areas of ecchymosis and superficial hemorrhages noted in upper and lower extremities. - Labs CBC & Chem 7: 01/12/20 10:48 01/12/20 10:48 Labs: Abnormal Lab Results - Last 24 Hours (Table) 01/12/20 01/12/20 Range/Units 10:48 10:48 RBC 2.95 L (3.80-5.40) m/uL Hgb 8.4 L (11.4-16.0) gm/dL Hct 27.1 L (34.0-46.0) % MCHC 30.9 L (31.0-37.0) g/dL RDW 21.6 H (11.5-15.5) % Sodium 136 L (137-145) mmol/L Glucose 142 H (74-99) mg/dL Microbiology - Last 24 Hours (Table) 01/07/20 15:16 Blood Culture - Preliminary Blood No Growth after 96 hours Assessment and Plan Assessment: 1. Acute blood loss anemia secondary to falls and supratherapeutic INR. 2. Chronic atrial fibrillation, on Coumadin at home for anticoagulation. 3. Multiple blood blisters with dark old hemorrhagic vesicles to her bilateral upper and lower extremities, back and left lower quadrant abdomen. 4. Chronic congestive heart failure, ejection fraction unknown, history of status post AICD placement 5. History of hypertension, on losartan at home 6. History of depression 7. Acute mental status change mostly transient acute metabolic encephalopathy, resolved. This was only noted on presentation. Not noted on my examination today. 8. Status post EGD and colonoscopy, nondiagnostic, patient was advised to have small bowel capsule endoscopy. 9 history of moderate mitral valve disease/regurgitation and moderate pulmonary hypertension. Recommendation: Continue present treatment plan as per GI on the case. Continue PPI. Plan for capsule endoscopy We'll continue to follow. Continue incentive spirometry, ambulate if possible. Time with Patient: Less than 30
[2020-01-12 12:56] LABS: Band Neutrophils % 1 %; Basophils # (M) 0.09 k/uL (0-0.2); Eosinophils # (M) 0.18 k/uL (0-0.7); Metamyelocytes # (M) 0.09 k/uL (0); Metamyelocytes % 1 %; Monocytes # (M) 0.36 k/uL (0-1.0); Myelocytes # (M) 0.18 k/uL (0); Myelocytes % 2 %; Neutrophils % (M) 79 %; Nucleated Red Blood Cells 0 /100 WBC (0-0); Total Cells Counted 100
[2020-01-12 12:57] LABS: Polychromasia Present
[2020-01-12 12:58] LABS: Mixed Population RBC Present
[2020-01-12 13:02] VITALS: BMI 26.4
--- NOTE | 2020-01-12 13:23 | P.PN ---
Subjective Progress Note Date: 01/12/20 Principal diagnosis: Acute blood loss anemia supratherapeutic INR level. Patient is a 83-year-old female with a known history of chronic atrial fibrillation on anticoagulation with Coumadin, history of pacemaker/AICD placement, chronic CHF, depression and other medical problems was brought to the hospital due to generalized weakness and lethargic. Patient lives by herself at home. Since last she has been having generalized weakness and shortness of breath with walking. Patient is accompanied by her daughter who is able to provide history. Daughter went to pick her up cultures she has not been feeling well. She has not been eating well and excessively tired recently. Patient has bruising all over the body on the extremities and also on the chest. 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 Denied any hematemesis or melena. Denied any [id number] pain medication use. No nausea vomiting or diarrhea. No dysuria or hematuria. Denied any complaints of fever or chills. No cough or sputum production. Denied any sick contacts at home. No history of prior GI bleed. Patient had EGD several years ago was negative for an acute bleeding. Patient was found to have hemoglobin level .8 and INR greater than 10. Elevated PT. WBC count 24.9 lactic acid 5.5 and urinalysis showed cloudy and elevated WBC counts and leukocyte esterase positive. Patient had CT head/cervical spine and CT abdomen and pelvis in the ER. Showed no acute bleeding. No retroperitoneal hemorrhage. EKG showed ventricular paced rhythm. Rate around 60. Patient was given a dose of vancomycin and cefepime in the ER. 1 unit of PRBC was ordered. 01/08/2020 Patient is awake and alert and oriented. Does complaining of swelling of the fingers and pain. Hemoglobin dropped down to 6.5 today. will be transfused with 1 unit of PRBC. INR was normalized. Patient does have right upper ex in the ecchymosis/discoloration and swelling. Continue with hand elevation. Duplex scan is negative for DVT. Pulmonary and GI is following. Patient has been afebrile. 01/09/2020 Patient is currently awake and alert oriented 3. Does complain of pain and swelling of the fingers and upper extremities mainly right upper ex daily ecchymosis and blisters. Coumadin is on hold. Hemoglobin is stable at 7.7. Urine culture showed no growth. WBC count 12.5 and creatinine level 0.71. 2-D echocardiogram showed left ventricular systolic function to be normal with ejection fraction 55-60%. No evidence of aortic valve regurgitation. Moderate to severe mitral valve rgitation mild to moderate tricuspid regurgitation and moderate pulmonary hypertension. GI and pulmonary is following. Tolerating oral diet. No complaints of nausea or vomiting. No hematemesis or melena. 01/10/2020 Patient is currently lying in the bed comfortably. No complaints of chest pain or shortness of breath. Hemoglobin is stable at 7.7. Coumadin is on hold. Otherwise right upper extremity swelling and ecchymosis and blisters with slight improvement. duplex scan is negative for DVT. Continue on hand elevation and pain management. Patient has been afebrile. Will be started on PT OT. GI is planning for EGD and colonoscopy tomorrow. No headache or dizziness. 4-2. 2019. Patient denied any complaints of chest pain or shortness of breath. Hemoglobin level improved to 8.1 today. Right upper extremity swelling did improve. Was placed on GIANA hose. Still having swelling of the right hand fingers. Patient is status post EGD today. Impression: 1. Upper endoscopy revealed a superficial healed antral ulcer and small hiatal hernia. No evidence of active bleeding or angiectasia identified 2. Colonoscopy revealed diffuse scattered diverticulosis but no evidence of colorectal neoplasia GI is planning to proceed with capsule endoscopy. 01/12/2020 Patient is seen and evaluated in follow-up today and is resting comfortably but easily arousable. No acute overnight issues. Hemoglobin level is improved and 8.4 today. Per patient no active bleeding noted. Patient states she is passing gas but has not had any bowel movements yet. Patient did tolerate a diet this morning. Nausea or vomiting. Patient denies any chest pain, shortness of breath, or palpitations. Patient underwent a capsule study with GI and results are pending. Coumadin continues to be on hold at this time and will await GI report. Right upper swelling and ecchymosis noted and patient states it is tender to the touch other was slightly improving. Instructed the patient to increase activity as tolerated and PT/OT is scheduled to evaluate the patient. Will continue to monitor closely. Objective - Vital Signs Vital signs: Vital Signs Temp 98.3 F 04/03/20 05:26 Pulse 60 01/12/20 05:26 Resp 16 01/12/20 05:26 BP 147/72 01/12/20 05:26 Pulse Ox 97 01/12/20 05:26 Intake & Output 01/11/20 01/12/20 01/12/20 18:59 06:59 18:59 Intake Total 520 Output Total 0 Balance 520 Weight 72 kg Intake: IV 520 Sodium Chloride 0.9% 1, 320 000 ml @ 40 mls/hr IV . Q24H [facility] Rx#:[id number] Output: Urine 0 Other: Voiding Method Bedpan Diaper # Voids 1 3 1 - Exam PHYSICAL EXAMINATION: Patient is lying in the bed comfortably, no acute distress, asleep, but easily arousable. Alert and oriented 3. HEENT: Normocephalic. Neck is supple. Pupils reactive. Nostrils clear. Oral cavity is moist. Ears reveal no drainage. Neck reveals no JVD, carotid bruits, or thyromegaly. CHEST EXAMINATION: Trachea is central. Symmetrical expansion. Bibasilar diminished air entry. Lung diaz clear to auscultation and percussion. CARDIAC: Normal S1, S2 with no gallops. No murmurs ABDOMEN: Soft. Bowel sounds normal. No organomegaly. No abdominal bruits. Extremities: reveal no edema. Right upper extremity swelling and ecchymosis. No clubbing or cyanosis Neurologically alert, oriented x3 with well-coordinated movements. No focal deficits noted Skin: Patient does have blisters and crusted hemorrhagic patches all over the extremities. Psychiatric: Cooperative. Non-suicidal Musculoskeletal: No joint swelling or deformity. Normal range of motion. - Labs CBC & Chem 7: 01/12/20 10:48 01/12/20 10:48 Labs: Microbiology - Last 24 Hours (Table) 01/07/20 15:16 Blood Culture - Preliminary Blood No Growth after 96 hours Assessment and Plan Assessment: Symptomatic anemia Acute blood loss anemia due to generalized bruising. Possible GI bleed. Hemoglobin 6.8--6.5--7.7--8.1--8.4. Patient has received a total of 2 units of PRBCs this admission Status post EGD and colonoscopy. Acute urinary tract infection and urine cultures showed no growth. Supratherapeutic INR level. Normalized now Chronic atrial fibrillation on anticoagulation with Coumadin. status post AICD placement history Chronic CHF with preserved ejection fraction.. Moderate mitral valve regurgitation and moderate pulmonary hypertension. Depression DVT prophylaxis patient was supratherapeutic on admission. GI prophylaxis. With PPI Plan: Coumadin is on hold while waiting for capsule study report. Patient will be continued on PPI. GI and pulmonary are following.. Patient will be continued on antibiotics in the form of cefepime and follow-up urine culture report. Urine culture showed no growth. Status post EGD and colonoscopy. Patient underwent capsule endoscopy study. Report is pending. Continue the home medications and further recommendations based on the clinical course.
[2020-01-12 13:56] VITALS: BP 120/71; RESP 18; TEMP 98
--- NOTE | 2020-01-12 15:24 | P.DS ---
Providers Date of admission: 01/07/20 14:54 Expected date of discharge: 01/12/20 Attending physician: Mavis Blanton Consults: 01/07/20 14:55 Consult Physician Routine Consulting Provider: Consuelo Walters Consult Reason/Comments: ro GI bleed Do you want consulting provider notified?: Yes 01/07/20 15:28 Consult Physician Routine Consulting Provider: Cabrera [place] Consult Reason/Comments: icu patient Do you want consulting provider notified?: Already Contacted Primary care physician: Khari Cuellar DO Hospital Course: Final diagnosis Symptomatic anemia Acute blood loss anemia due to generalized bruising. Possible GI bleed. Status post EGD and colonoscopy. Acute urinary tract infection and urine cultures showed no growth. Supratherapeutic INR level. Chronic atrial fibrillation on anticoagulation with Coumadin. status post AICD placement history Chronic CHF with preserved ejection fraction.. Moderate mitral valve regurgitation and moderate pulmonary hypertension. Depression DVT prophylaxis patient was supratherapeutic on admission. GI prophylaxis. Discharge disposition Patient is being discharged in a stable condition with guarded prognosis to home and will have home care follow-up. Patient is going to stay with her daughter she currently lives alone. Patient is to continue with her Coumadin this evening. She will need to follow-up with GI and her primary care provider in the outpatient setting. Total time taken is 35 minutes. History of present illness This is an 84-year-old female who was recently admitted with increasing shortness of breath, generalized weakness and lethargy and was being closely monitored. Upon admission patient was found to have a hemoglobin of 6.8 with an INR greater than 10 along with an elevated white blood count and lactic acid at 5.5. Patient did undergo upper endoscopy along with colonoscopy which revealed diffuse scattered diverticulosis with no evidence of colorectal neoplasia along with superficial healed antral ulcer and small hiatal hernia with no active bleeding noted. Patient underwent capsule study with GI as well. Capsule study showed isolated angioectasis in the proximal ileum with no bleeding noted. Patient underwent duplex scan which were negative for DVTs. During hospitalization patient received 2 units of PRBCs for low hemoglobin and is currently 8.4 today on the hemoglobin. Patient is to have repeat labs in a few days to monitor hemoglobin along with INR as patient takes Coumadin. Patient is okay to resume Coumadin this evening. Patient was also evaluated by pulmonary and recommending continued use of the incentive spirometer at least 10 times every hour while awake. Patient will need follow-up with GI in her primary care provider in the outpatient setting. Patient will continue with home care as well in the outpatient setting. Patient normally uses a cane at home but due to increasing weakness and fatigue patient will benefit from a walker and a prescription was provided. Patient is at high risk for falls as well. Patient will be going to stay with daughter upon discharge. Currently no reports of chest pain, shortness of breath, or palpitations. Patient is afebrile. No reports of nausea or vomiting and patient did tolerate diet today. On exam vital signs are stable. Temp is 98F, pulse is 60, respirations are 18, blood pressure is 120/71, oxygen saturation is 95% on room air. Cardio S1, S2 are muffled. Respiratory system shows diminished breath sounds otherwise clear to auscultation. Abdomen is soft and nontender. Nervous system shows no focal deficits. Please refer to medication reconciliation sheet for a list of medications. Patient Condition at Discharge: Fair Plan - Discharge Summary Discharge Rx Participant: No New Discharge Prescriptions: New Ferrous Sulfate [Iron (65 MG Elemental)] 325 mg PO BID-W/MEALS 30 Days #60 tab Pantoprazole [Protonix] 40 mg PO DAILY 30 Days #30 tablet.dr Continue Warfarin Sodium 4 mg PO HS Losartan Potassium 50 mg PO DAILY Acetaminophen with Codeine [Tylenol with Codeine #4 Tablet] 1 tab PO Q8HR PRN PRN Reason: Pain Levothyroxine Sodium [Synthroid] 168 mg PO SUSA Levothyroxine Sodium [Synthroid] 112 mcg PO MOTUWETHFR Gabapentin [Neurontin] 300 mg PO TID Furosemide [Lasix] 40 mg PO DAILY PRN PRN Reason: Edema DULoxetine HCL [Cymbalta] 60 mg PO DAILY Carvedilol [Coreg] 6.25 mg PO BID Discontinued Sucralfate [Carafate] 1 gm PO TID Discharge Medication List Acetaminophen with Codeine [Tylenol with Codeine #4 Tablet] 1 tab PO Q8HR PRN 01/07/20 [History] Carvedilol [Coreg] 6.25 mg PO BID 01/07/20 [History] DULoxetine HCL [Cymbalta] 60 mg PO DAILY 01/07/20 [History] Furosemide [Lasix] 40 mg PO DAILY PRN 01/07/20 [History] Gabapentin [Neurontin] 300 mg PO TID 01/07/20 [History] Levothyroxine Sodium [Synthroid] 112 mcg PO MOTUWETHFR 01/07/20 [History] Levothyroxine Sodium [Synthroid] 168 mg PO SUSA 01/07/20 [History] Losartan Potassium 50 mg PO DAILY 01/07/20 [History] Warfarin Sodium 4 mg PO HS 01/07/20 [History] Ferrous Sulfate [Iron (65 MG Elemental)] 325 mg PO BID-W/MEALS 30 Days #60 tab 01/12/20 [Rx] Pantoprazole [Protonix] 40 mg PO DAILY 30 Days #30 tablet. 01/12/20 [Rx] Follow up Appointment(s)/Referral(s): Khari Cuellar DO [Primary Care Provider] - 1-2 days (Please call office to make hospital follow up appointment) Consuelo Walters MD [STAFF PHYSICIAN] - 2 Weeks (Please call office to make hospital follow up 2-3 weeks.) Milagros [facility], [NON-STAFF] - 1-2 Days Ambulatory/Diagnostic Orders: Basic Metabolic Panel [LAB.AMB] Time Frame: 3 Days, Location: None Selected Complete Blood Count w/diff [LAB.AMB] Time Frame: 3 Days, Location: None Selected Prothrombin Time INR [LAB.AMB] Time Frame: 3 Days, Location: None Selected Patient Instructions/Handouts: Peptic Ulcer (DC), Anemia (DC) Activity/Diet/Wound Care/Special Instructions: Activity Limited until follow-up Continue current diet Follow-up with primary care provider upon discharge Repeat labs in 2-3 days follow-up with GI in 2-3 weeks May resume Coumadin this evening Discharge Disposition: HOME WITH HOME HEALTH SERVICES
[2020-01-12] MEDS ORDERED: FERROUS SULFATE 325 MG TAB PO SCH (17:30)
[2020-01-13] MEDS ORDERED: LEVOTHYROXINE 112 MCG TAB PO SCH (06:30)
== END 2020-01-12 17:12 | disposition home health service (06) | DRG 377 ==
LOC: EC 12:59 → EDBD 14:54 → 2SICU 14:54 → 3SCARD 01-08 12:25 → 6NMEDSUR 01-10 18:24
PROVIDERS: ADMIT Internal Medicine; ATTEND Internal Medicine
PROC: 30233N1 Transfusion of Nonautologous Red Blood Cells into Peripheral Vein, Percutaneous Approach (ICD-10-PCS; 2020-01-08)
PROC: 30233K1 Transfusion of Nonautologous Frozen Plasma into Peripheral Vein, Percutaneous Approach (ICD-10-PCS; 2020-01-08)
PROC: 05HC33Z Insertion of Infusion Device into Left Basilic Vein, Percutaneous Approach (ICD-10-PCS; 2020-01-08)
PROC: 0DJD8ZZ Inspection of Lower Intestinal Tract, Via Natural or Artificial Opening Endoscopic (ICD-10-PCS; principal; 2020-01-11 08:00)
PROC: 0DB78ZX Excision of Stomach, Pylorus, Via Natural or Artificial Opening Endoscopic, Diagnostic (ICD-10-PCS; principal; 2020-01-11 08:00)
PROC: 0DJ07ZZ Inspection of Upper Intestinal Tract, Via Natural or Artificial Opening (ICD-10-PCS; 2020-01-11 08:45)
DX: K92.1 Melena (principal); G93.41 Metabolic encephalopathy; D62 Acute posthemorrhagic anemia; D68.9 Coagulation defect, unspecified; E87.2 Acidosis; I48.20 Chronic atrial fibrillation, unspecified; N39.0 Urinary tract infection, site not specified; F32.9 Major depressive disorder, single episode, unspecified; I08.1 Rheumatic disorders of both mitral and tricuspid valves; I11.0 Hypertensive heart disease with heart failure; I25.10 Atherosclerotic heart disease of native coronary artery without angina pectoris; I27.20 Pulmonary hypertension, unspecified; I50.9 Heart failure, unspecified; K29.70 Gastritis, unspecified, without bleeding; K31.819 Angiodysplasia of stomach and duodenum without bleeding; K44.9 Diaphragmatic hernia without obstruction or gangrene; K57.90 Diverticulosis of intestine, part unspecified, without perforation or abscess without bleeding; R23.8 Other skin changes; R29.6 Repeated falls; L29.9 Pruritus, unspecified; S40.021A Contusion of right upper arm, initial encounter; T45.515A Adverse effect of anticoagulants, initial encounter; Z79.01 Long term (current) use of anticoagulants; Z79.890 Hormone replacement therapy; Z79.899 Other long term (current) drug therapy; Z87.11 Personal history of peptic ulcer disease; Z91.81 History of falling; Z95.810 Presence of automatic (implantable) cardiac defibrillator; Z96.643 Presence of artificial hip joint, bilateral; R23.3 Spontaneous ecchymoses; Z60.2 Problems related to living alone; Z88.8 Allergy status to other drugs, medicaments and biological substances
CPT/HCPCS: 36410; 36415; 36430; 43239; 45378; 70450; 71045; 72125; 72170; 74177; 76937; 80048; 80053; 81001; 82140; 82330; 82607; 82728; 83540; 83550; 83605; 83735; 84443; 84484; 85025; 85027; 85045; 85384; 85610; 85730; 86850; 86900; 86901; 86920; 87040; 87086; 88305; 91110; 93005; 93306; 93970; 96361; 96365; 96366; 96375; 99285

== ENCOUNTER 2020-01-24 12:14 | Emergency (ER) | payer MEDICARE ==
[2020-01-24 12:23] VITALS: RESP 18
[2020-01-24] MEDS ORDERED: ACETAMINOPHEN TAB 325 MG TAB PO STA (12:40)
--- NOTE | 2020-01-24 12:57 | ED ---
Head Injury HPI - General Chief complaint: Head Injury Stated complaint: head lac Time Seen by Provider: 01/24/20 12:28 Source: patient, family Mode of arrival: wheelchair Limitations: no limitations - History of Present Illness Initial comments: 84-year-old female patient presents to the emergency department today for evaluation of head injury and laceration. Patient states around 9:00 this morning her phone rang so she got out of bed losing her balance and fell hitting her head on a metal shelf. Patient denies loss of consciousness. She does take Coumadin. Does admit to having a headache currently. Denies nausea or vomiting. Denies blurred or double vision. Denies any other injuries. Patient denies any back pain, chest pain, shortness of breath, dizziness, weakness, abdominal pain, nausea, vomiting, or difficulties with bowel movements or urination. - Related Data Home Medications Medication Instructions Recorded Confirmed Acetaminophen with Codeine 1 tab PO Q8HR PRN 01/07/20 01/07/20 [Tylenol with Codeine #4 Tablet] Carvedilol [Coreg] 6.25 mg PO BID 01/07/20 01/07/20 DULoxetine HCL [Cymbalta] 60 mg PO DAILY 01/07/20 01/07/20 Furosemide [Lasix] 40 mg PO DAILY PRN 01/07/20 01/07/20 Gabapentin [Neurontin] 300 mg PO TID 01/07/20 01/07/20 Levothyroxine Sodium [Synthroid] 112 mcg PO MOTUWETHFR 01/07/20 01/07/20 Levothyroxine Sodium [Synthroid] 168 mg PO SUSA 01/07/20 01/07/20 Losartan Potassium 50 mg PO DAILY 01/07/20 01/07/20 Warfarin Sodium 4 mg PO HS 01/07/20 01/07/20 Previous Rx's Medication Instructions Recorded Ferrous Sulfate [Iron (65 MG 325 mg PO BID-W/MEALS 30 Days #60 01/12/20 Elemental)] tab Pantoprazole [Protonix] 40 mg PO DAILY 30 Days #30 01/12/20 tablet. Allergies/Adverse reactions: Allergies Allergy/AdvReac Type Severity Reaction Status Date / Time pregabalin [From Lyrica] Allergy Itching Verified 01/07/20 13:29 Review of Systems ROS Statement: Those systems with pertinent positive or pertinent negative responses have been documented in the HPI. ROS Other: All systems not noted in ROS Statement are negative. Past Medical History Past Medical History: Atrial Fibrillation, Coronary Artery Disease (CAD), Cancer, Heart Failure, Hypertension History of Any Multi-Drug Resistant Organisms: None Reported Past Surgical History: Pacemaker Additional Past Surgical History / Comment(s): rainer hip replacement, defibrillator Type of Cardiac Device: Permanent Pacemaker Device Placement Date:: not known Past Psychological History: Depression Smoking Status: Never smoker Past Alcohol Use History: None Reported Past Drug Use History: None Reported General Exam Limitations: no limitations General appearance: alert, in no apparent distress, other (Physical well-developed, well-nourished elderly female patient in no acute distress. Vital signs upon presentation are temperature 97.5F, pulse 74, respirations 18, blood pressure 115/75, pulse ox 100% on room air.) Head exam: Present: other (There is 3 cm laceration noted to the right frontal scalp. There is surrounding soft tissue swelling and tenderness. No active bleeding.) Eye exam: Present: normal appearance, PERRL, EOMI. Absent: scleral icterus, conjunctival injection, periorbital swelling ENT exam: Present: normal exam, normal oropharynx, mucous membranes moist Neck exam: Present: normal inspection, full ROM, other (Nontender, no step-off, no deformity to firm midline palpation of the posterior cervical spine. Full range of motion without pain or limitation.). Absent: tenderness, meningismus, lymphadenopathy Respiratory exam: Present: normal lung sounds bilaterally. Absent: respiratory distress, wheezes, rales, rhonchi, stridor Cardiovascular Exam: Present: regular rate, normal rhythm, normal heart sounds. Absent: systolic murmur, diastolic murmur, rubs, gallop, clicks Extremities exam: Present: normal inspection, full ROM, normal capillary refill. Absent: tenderness, pedal edema, joint swelling, calf tenderness Back exam: Present: normal inspection, other (Nontender, no step-off, no d eformity to firm midline palpation of the thoracic and lumbar vertebrae. Full range of motion without pain or limitation.). Absent: vertebral tenderness Neurological exam: Present: alert, oriented X3, CN II-XII intact Psychiatric exam: Present: normal affect, normal mood Skin exam: Present: warm, dry, intact, normal color. Absent: rash Course Vital Signs 01/24/20 01/24/20 12:16 14:36 Temperature 97.5 F L 97.9 F Pulse Rate 74 73 Respiratory 18 18 Rate Blood Pressure 115/75 122/72 O2 Sat by Pulse 100 100 Oximetry Procedures - Laceration Laceration #1 Consent Obtained: verbal consent Indication: laceration Site: scalp Size (cm): 6 Description: linear Depth: simple, single layer Anesthetic Used: lidocaine 1% Anesthesia Technique: local infiltration Amount (mls): 5 Pre-repair: irrigated extensively Type of Sutures: nylon Size of Sutures: 5-0 Number of Sutures: 8 Technique: simple, interrupted Patient Tolerated Procedure: well, no complications Medical Decision Making - Medical Decision Making 84-year-old female patient presented to the emergency department today for evaluation after experiencing a fall this morning. Physical examination did reveal a 6 cm laceration to the right scalp. She is neurologically intact with no focal deficits. Denied neck or back injury. CT brain and C-spine was negative. INR was 2.6. Laceration was repaired as documented. We did discuss signs or symptoms of worsening head injury with both the patient and the kira smith. She will be discharged to follow up with her primary care physician for recheck in 1-2 days. Return parameters were discussed in detail. Both patient and daughter verbalize understanding and agree with this plan. - Lab Data Result diagrams: 01/24/20 12:42 01/24/20 12:42 Lab Results 01/24/20 01/24/20 01/24/20 Range/Units 12:42 12:42 12:42 WBC 6.3 (3.8-10.6) k/uL RBC 3.81 (3.80-5.40) m/uL Hgb 11.6 D (11.4-16.0) gm/dL Hct 36.9 (34.0-46.0) % MCV 97.0 D (80.0-100.0) fL MCH 30.6 (25.0-35.0) pg MCHC 31.5 (31.0-37.0) g/dL RDW 20.4 H (11.5-15.5) % Plt Count 462 H (150-450) k/uL Neutrophils % 66 % Lymphocytes % 16 % Monocytes % 9 % Eosinophils % 6 % Basophils % 1 % Neutrophils # 4.1 (1.3-7.7) k/uL Lymphocytes # 1.0 (1.0-4.8) k/uL Monocytes # 0.6 (0-1.0) k/uL Eosinophils # 0.4 (0-0.7) k/uL Basophils # 0.1 (0-0.2) k/uL Hypochromasia Moderate Anisocytosis Moderate Macrocytosis Moderate PT 25.7 H (9.0-12.0) sec INR 2.6 H (<1.2) APTT 35.3 H (22.0-30.0) sec Sodium 138 (137-145) mmol/L Potassium 4.1 (3.5-5.1) mmol/L Chloride 102 (98-107) mmol/L Carbon Dioxide 28 (22-30) mmol/L Anion Gap 8 mmol/L BUN 17 (7-17) mg/dL Creatinine 0.73 (0.52-1.04) mg/dL Est GFR (CKD-EPI)AfAm 88 (>60 ml/min/1.73 sqM) Est GFR (CKD-EPI)NonAf 76 (>60 ml/min/1.73 sqM) Glucose 101 H (74-99) mg/dL Calcium 8.9 (8.4-10.2) mg/dL - Radiology Data Radiology results: report reviewed, image reviewed CT brain without contrast was obtained. Report was reviewed in its entirety. Impression by Dr. Dr. Guerrero shows age-related atrophic and chronic small vessel ischemic change without acute intracranial process seen at this time. CT facial bones without contrast was obtained and shows no evidence for depressed or displaced facial bone fracture. Disposition Clinical Impression: Head injury, Scalp laceration Disposition: HOME SELF-CARE Condition: Good Instructions (If sedation given, give patient instructions): Care For Your Sti tches (ED), Laceration (ED), Head Injury (ED) Additional Instructions: Keep wound clean and dry. Cleanse twice daily with warm water and antibacterial soap. Follow-up with the primary care physician for recheck in 1-2 days. Return to the emergency department immediately if patient develops any symptoms of worsening head injury including but not limited to headache, vomiting, dizziness, weakness, or confusion. Return for any other new, worsening, or concerning symptoms. Is patient prescribed a controlled substance at d/c from ED?: No Referrals: Nonstaff,Physician [REFERRING] - 1-2 days Time of Disposition: 14:11
[2020-01-24 13:06] LABS: Anisocytosis Moderate; Basophils # (A) 0.1 k/uL (0-0.2); Basophils % (A) 1 %; Eosinophils # (A) 0.4 k/uL (0-0.7); Eosinophils % (A) 6 %; HCT 36.9 % (34.0-46.0); Hypochromasia Moderate; Lymphocytes % (A) 16 %; MCH 30.6 pg (25.0-35.0); MCHC 31.5 g/dL (31.0-37.0); Macrocytosis Moderate; Mean Platelet Volume 7.7; Monocytes # (A) 0.6 k/uL (0-1.0); Monocytes % (A) 9 %; Neutrophils # (A) 4.1 k/uL (1.3-7.7); Neutrophils % (A) 66 %; Platelet Count 462 k/uL (150-450); RBC 3.81 m/uL (3.80-5.40); RDW 20.4 % (11.5-15.5); WBC 6.3 k/uL (3.8-10.6)
[2020-01-24 13:07] LABS: Calcium 8.9 mg/dL (8.4-10.2); Potassium 4.1 mmol/L (3.5-5.1)
[2020-01-24 13:08] LABS: HGB 11.6 gm/dL (11.4-16.0); INR 2.6 (<1.2); Partial Thromboplastin Time 35.3 sec (22.0-30.0); Prothrombin Time 25.7 sec (9.0-12.0)
--- NOTE | 2020-01-24 13:18 | CT ---
EXAMINATION TYPE: CT brain wo con DATE OF EXAM: 01/24/2020 COMPARISON: 01/07/2020 HISTORY: Fall hitting RT side of head above eye CT DLP: [address] of the brain was performed. The ventricles, basal cisterns and sulci overlying the cerebral convexities demonstrate mild enlargem ent. There is no evidence for intracranial hemorrhage or sulcal effacement. There is decreased attenuation about the periventricular white matter and deep white matter of both c erebral hemispheres, compatible with chronic small vessel ischemia. Differential diagnosis does inclu de demyelination. No mass effects are seen.No midline shift. Osseous calvarium is intact. Right frontal scalp hematoma and laceration noted. If symptoms persist consider MRI. IMPRESSION: 1. Age related atrophic and chronic small vessel ischemic change without acute intracranial process s een at this time.
--- NOTE | 2020-01-24 13:21 | CT ---
EXAMINATION TYPE: CT facial bones wo con DATE OF EXAM: 01/24/2020 COMPARISON: None HISTORY: Fall hitting RT side of head above eye CT DLP: [address] of the facial bones was performed in the axial and coronal planes. Bone and soft tissu e window settings are submitted. Right frontal scalp hematoma and laceration. I do not see evidence for displaced facial bone fracture or depressed facial bone fracture. The globes are intact. Paranasal sinuses are well-aerated. Chronic right-sided mastoiditis. IMPRESSION: 1. No evidence for depressed or displaced facial bone fracture.
[2020-01-24] MEDS ORDERED: LIDOCAINE 1% INJ 10MG/ML (20 ML MDV) SQ ONE (13:25)
[2020-01-24 14:38] VITALS: BP 122/72; PULSE 73; TEMP 97.9
== END 2020-01-24 14:38 | disposition home or self-care (01) ==
LOC: EC 12:14
DX: S01.01XA Laceration without foreign body of scalp, initial encounter (principal); I48.91 Unspecified atrial fibrillation; I25.10 Atherosclerotic heart disease of native coronary artery without angina pectoris; I11.0 Hypertensive heart disease with heart failure; I50.9 Heart failure, unspecified; F32.9 Major depressive disorder, single episode, unspecified; Z95.0 Presence of cardiac pacemaker; Z85.9 Personal history of malignant neoplasm, unspecified; Z96.643 Presence of artificial hip joint, bilateral; Z79.890 Hormone replacement therapy; Z79.01 Long term (current) use of anticoagulants; Z79.899 Other long term (current) drug therapy; Z88.8 Allergy status to other drugs, medicaments and biological substances; W06.XXXA Fall from bed, initial encounter; Y92.009 Unspecified place in unspecified non-institutional (private) residence as the place of occurrence of the external cause
CPT/HCPCS: 36415; 80048; 85025; 85610; 85730; 70486; 70450; 99284; 12002; J2001

== ENCOUNTER 2020-01-30 04:41 | Observation (INO) | payer MEDICARE ==
[2020-01-30] MEDS ORDERED: MORPHINE SULFATE 4 MG/ML SYRINGE IV STA (05:10)
--- NOTE | 2020-01-30 05:11 | ED ---
General Adult HPI - General Chief complaint: Neuro Symptoms/Deficit Stated complaint: Forehead laceration Time Seen by Provider: 01/30/20 04:59 Source: patient Mode of arrival: ambulatory Limitations: no limitations - History of Present Illness Initial comments: Dictation was produced using [employer] dictation software. please excuse any grammatical, word or spelling errors. This patient was cared for during a federal and state declared state of e mergency secondary to Covid 19 Chief Complaint: 84-year-old female presents with head pain History of Present Illness: 84-year-old female she was seen in the emergency department 6 days ago after she fell. Patient had suffered a laceration that required 8 stitches according to daughter who was at bedside. Since the injury 6 days ago patient reports that she has had increasing head pain and persistent bleeding coming from the laceration site. Patient states that pain is causing her some difficulty with ambulation. She does take Coumadin for atrial fibrillation. Denies any nausea vomiting. Her to take Tylenol for home however there was no relief of her symptoms. Patient localizes the pain to right over the laceration is the right frontal forehead. She states it radiates to the occiput. She reports that the pain is severe that she does not want touch the area. The ROS documented in this emergency department record has been reviewed and confirmed by me. Those systems with pertinent positive or negative responses have been documented in the HPI. All other systems are other negative and/or noncontributory. PHYSICAL EXAM: General Impression: Alert and oriented x3, not in acute distress HEENT: Swelling hematoma and dried blood noted to the right forehead, extra- ocular movements intact, pupils equal and reactive to light bilaterally, mucous membranes moist. Cardiovascular: Heart regular rate and rhythm Chest: Able to complete full sentences, no retractions, no tachypnea Abdomen: Bowel sounds present, abdomen soft, non-tender, non-distended, no organomegaly Musculoskeletal: Pulses present and equal in all extremities, no peripheral edema Motor: no focal deficits noted Neurological: CN II-XII grossly intact, no focal motor or sensory deficits noted Skin: Intact with no visualized rashes Psych: Normal affect and mood ED course: 84-year-old female who was seen here 6 days ago for traumatic head injury presents with increasing head pain and bleeding from laceration site [vital signs] Laboratory evaluation obtained. CBC unremarkable. Metabolic panel was within acceptable limits. Computed tomography scan of the brain was obtained showing no acute processes intracranially however there is a large right frontal acute scalp hematoma. Patient given morphine however did not feel any relief. She states her pain is severe and unrelenting. Patient given some Dilaudid. Compression wrap was placed to the head to try and reduce some of the swelling mechanically. Considering the severity of patient's symptoms. Patient be admitted for intractable head pain secondary to scalp hematoma. Discussed patient case with Dr. Miller as well as except patient's care. Medicine consulted per request by primary attending. - Related Data Home Medications Medication Instructions Recorded Confirmed Acetaminophen with Codeine 1 tab PO Q8HR PRN 01/07/20 01/07/20 [Tylenol with Codeine #4 Tablet] Carvedilol [Coreg] 6.25 mg PO BID 01/07/20 01/07/20 DULoxetine HCL [Cymbalta] 60 mg PO DAILY 01/07/20 01/07/20 Furosemide [Lasix] 40 mg PO DAILY PRN 01/07/20 01/07/20 Gabapentin [Neurontin] 300 mg PO TID 01/07/20 01/07/20 Levothyroxine Sodium [Synthroid] 112 mcg PO MOTUWETHFR 01/07/20 01/07/20 Levothyroxine Sodium [Synthroid] 168 mg PO SUSA 01/07/20 01/07/20 Losartan Potassium 50 mg PO DAILY 01/07/20 01/07/20 Warfarin Sodium 4 mg PO HS 01/07/20 01/07/20 Previous Rx's Medication Instructions Recorded Ferrous Sulfate [Iron (65 MG 325 mg PO BID-W/MEALS 30 Days #60 01/12/20 Elemental)] tab Pantoprazole [Protonix] 40 mg PO DAILY 30 Days #30 01/12/20 tablet. Allergies Allergy/AdvReac Type Severity Reaction Status Date / Time pregabalin [From Lyrica] Allergy Itching Verified 01/07/20 13:29 Review of Systems ROS Statement: Those systems with pertinent positive or pertinent negative responses have been documented in the HPI. ROS Other: All systems not noted in ROS Statement are negative. Past Medical History Past Medical History: Atrial Fibrillation, Coronary Artery Disease (CAD), Cancer, Heart Failure, Hypertension History of Any Multi-Drug Resistant Organisms: None Reported Past Surgical History: Pacemaker Additional Past Surgical History / Comment(s): rainer hip replacement, defibrillator Type of Cardiac Device: Permanent Pacemaker Device Placement Date:: not known Past Psychological History: Depression Smoking Status: Never smoker Past Alcohol Use History: None Reported Past Drug Use History: None Reported General Exam Limitations: no limitations Course Vital Signs 01/30/20 01/30/20 04:51 05:51 Temperature 97.3 F L Pulse Rate 58 L 60 Respiratory 18 18 Rate Blood Pressure 194/91 186/96 O2 Sat by Pulse 97 97 Oximetry Medical Decision Making - Lab Data Result diagrams: 01/30/20 05:08 01/30/20 05:08 Lab Results 01/30/20 01/30/20 Range/Units 05:08 05:08 WBC 6.5 (3.8-10.6) k/uL RBC 4.04 (3.80-5.40) m/uL Hgb 12.2 (11.4-16.0) gm/dL Hct 39.7 (34.0-46.0) % MCV 98.2 (80.0-100.0) fL MCH 30.3 (25.0-35.0) pg MCHC 30.9 L (31.0-37.0) g/dL RDW 18.7 H (11.5-15.5) % Plt Count 394 (150-450) k/uL Neutrophils % 50 % Lymphocytes % 25 % Monocytes % 13 % Eosinophils % 6 % Basophils % 2 % Neutrophils # 3.2 (1.3-7.7) k/uL Lymphocytes # 1.6 (1.0-4.8) k/uL Monocytes # 0.9 (0-1.0) k/uL Eosinophils # 0.4 (0-0.7) k/uL Basophils # 0.1 (0-0.2) k/uL Hypochromasia Slight Anisocytosis Slight Macrocytosis Slight Sodium 139 (137-145) mmol/L Potassium 3.9 (3.5-5.1) mmol/L Chloride 101 (98-107) mmol/L Carbon Dioxide 31 H (22-30) mmol/L Anion Gap 7 mmol/L BUN 16 (7-17) mg/dL Creatinine 0.69 (0.52-1.04) mg/dL Est GFR (CKD-EPI)AfAm >90 (>60 ml/min/1.73 sqM) Est GFR (CKD-EPI)NonAf 80 (>60 ml/min/1.73 sqM) Glucose 93 (74-99) mg/dL Calcium 9.4 (8.4-10.2) mg/dL Disposition Clinical Impression: Scalp hematoma, Intractable pain Disposition: ADMITTED IP TO THIS HOSP Condition: Fair Referrals: Khair Cuellar DO [Primary Care Provider] - 1-2 days Decision Time: 05:56
[2020-01-30 05:29] LABS: Anisocytosis Slight; Basophils # (A) 0.1 k/uL (0-0.2); Basophils % (A) 2 %; Eosinophils # (A) 0.4 k/uL (0-0.7); Eosinophils % (A) 6 %; HCT 39.7 % (34.0-46.0); HGB 12.2 gm/dL (11.4-16.0); Hypochromasia Slight; Lymphocytes # (A) 1.6 k/uL (1.0-4.8); Lymphocytes % (A) 25 %; MCH 30.3 pg (25.0-35.0); MCHC 30.9 g/dL (31.0-37.0); MCV 98.2 fL (80.0-100.0); Macrocytosis Slight; Mean Platelet Volume 7.4; Monocytes # (A) 0.9 k/uL (0-1.0); Monocytes % (A) 13 %; Neutrophils # (A) 3.2 k/uL (1.3-7.7); Neutrophils % (A) 50 %; Platelet Count 394 k/uL (150-450); RBC 4.04 m/uL (3.80-5.40); RDW 18.7 % (11.5-15.5); WBC 6.5 k/uL (3.8-10.6)
[2020-01-30 05:36] LABS: African American GFR (CKD) >90 (>60 ml/min/1.73 sqM); Anion Gap 7 mmol/L; Blood Urea Nitrogen 16 mg/dL (7-17); Calcium 9.4 mg/dL (8.4-10.2); Carbon Dioxide 31 mmol/L (22-30); Chloride 101 mmol/L (98-107); Glucose 93 mg/dL (74-99); Non-African American GFR(CKD) 80 (>60 ml/min/1.73 sqM); Potassium 3.9 mmol/L (3.5-5.1); Sodium 139 mmol/L (137-145)
--- NOTE | 2020-01-30 05:40 | CT ---
EXAMINATION TYPE: CT brain wo con DATE OF EXAM: 01/30/2020 COMPARISON: 01/24/2020 HISTORY: Fall, Left frontal hematoma CT DLP: 1068.40 mGycm Automated exposure control for dose reduction was used. There is cerebral cortical atrophy. There is no mass effect nor midline shift. There is no sign of in tracranial hemorrhage. There is large right frontal scalp hematoma. This measures up to 2 cm in thick ness. The calvarium is intact. IMPRESSION: No acute intracranial abnormality. Mild atrophy. Large right frontal acute scalp hematoma.
[2020-01-30] MEDS ORDERED: HYDROmorphone 0.5 MG/0.5 ML SYRINGE IVP STA (05:46)
[2020-01-30] MEDS ORDERED: NALOXONE 0.4 MG/ML 1 ML VIAL IV PRN (05:52)
[2020-01-30] MEDS ORDERED: ONDANSETRON 4 MG/2 ML VIAL IVP PRN (05:52)
[2020-01-30 06:08] LABS: INR 4.6 (<1.2); Partial Thromboplastin Time 40.7 sec (22.0-30.0); Prothrombin Time 45.9 sec (9.0-12.0)
[2020-01-30] MEDS: oxyCODONE-APAP 5-325MG 1 EACH TAB PO PRN ×3 (09:02→19:23)
[2020-01-30] MEDS ORDERED: PHYTONADIONE ORAL 5 MG/5 ML ORAL.SYRG PO STA (10:00)
[2020-01-30] MEDS: HYDROmorphone 0.5 MG/0.5 ML SYRINGE IVP PRN ×3 (11:29→20:57)
[2020-01-30] MEDS: SODIUM CHLORIDE 0.9% 1,000 ML IV SCH (11:33)
[2020-01-30] MEDS ORDERED: ONDANSETRON 4 MG TAB PO PRN (13:04)
[2020-01-30] MEDS ORDERED: FUROSEMIDE 40 MG TAB PO PRN (13:04)
--- NOTE | 2020-01-30 13:51 | P.GSHP ---
History of Present Illness H&P Date: 01/30/20 Chief Complaint: head pain CHIEF COMPLAINT: head pain HISTORY OF PRESENT ILLNESS: 84-year-old female who presented to the emergency room secondary to severe head pain. Patient apparently fell almost a week ago. She had a laceration sutured at that time. Her pain has continued to increase over the course of the last week. PAST MEDICAL HISTORY: See list. PAST SURGICAL HISTORY: See list. SOCIAL HISTORY: No illicit drug use. REVIEW OF SYSTEMS: CONSTITUTIONAL: Denies fever or chills. Reports fall within the last week. HEENT: Denies blurred vision, vision changes, or eye pain. Denies hemoptysis. Reports pain to right side of head. CARDIOVASCULAR: Denies chest pain or pressure. RESPIRATORY: No shortness of breath. GASTROINTESTINAL: Refer to HPI for pertinent findings HEMATOLOGIC: Denies bleeding disorders. GENITOURINARY: Denies any blood in urine. SKIN: Denies pruitis. Denies rash. PHYSICAL EXAM: VITAL SIGNS: Reviewed. GENERAL: Well-developed in no acute distress. HEENT: No sclera icterus. Extraocular movements grossly intact. Moist buccal mucosa. Large hematoma to right side of head with sutures noted. ABDOMEN: Soft. Nondistended. Nontender. NEUROLOGIC: Alert and oriented. Cranial nerves II through XII grossly intact. LABORATORY DATA: W BC 6.5. Hemoglobin 12.2. Platelet count 394. INR 4.6. IMAGING: CT brain: No acute intracranial abnormality. Mild atrophy. Large right frontal acute scalp hematoma ASSESSMENT: 1. Large right front scalp hematoma, s/p fall 2. Intractable pain, secondary to above 3. Coagulopathy secondary to Coumadin PLAN: -No surgical intervention recommended at this time -Recommend correction of coagulopathy -Medical management per Dr. Nicole Nurse practitioner note has been reviewed by physician. Signing provider agrees with the documented findings, assessment, and plan of care. Past Medical History Past Medical History: Atrial Fibrillation, Coronary Artery Disease (CAD), Cancer, Heart Failure, Deep Vein Thrombosis (DVT), Hypertension Additional Past Medical History / Comment(s): Breast CA History of Any Multi-Drug Resistant Organisms: None Reported Past Surgical History: Pacemaker Additional Past Surgical History / Comment(s): rainer hip replacement, defibri llator, bilateral cataract, right breast 7 lymph nodes removed Type of Cardiac Device: Permanent Pacemaker Device Placement Date:: not known Past Psychological History: Depression Smoking Status: Never smoker Past Alcohol Use History: None Reported Past Drug Use History: None Reported - Past Family History Mother Family Medical History: Cancer Additional Family Medical History / Comment(s): leukemia Father History Unknown: Yes Medications and Allergies Home Medications Medication Instructions Recorded Confirmed Type Acetaminophen with Codeine 1 tab PO Q8HR 01/07/20 01/30/20 History [Tylenol with Codeine #4 Tablet] Carvedilol [Coreg] 6.25 mg PO BID 01/07/20 01/30/20 History DULoxetine HCL [Cymbalta] 60 mg PO DAILY@1200 01/07/20 01/30/20 History Furosemide [Lasix] 40 mg PO Q48H PRN 01/07/20 01/30/20 History Gabapentin [Neurontin] 300 mg PO BID 01/07/20 01/30/20 History Levothyroxine Sodium [Synthroid] 112 mcg PO MOTUWETHFR 01/07/20 01/30/20 History Levothyroxine Sodium [Synthroid] 168 mg PO SUSA 01/07/20 01/30/20 History Warfarin Sodium 4 mg PO HS 01/07/20 01/30/20 History Ferrous Sulfate [Iron (65 MG 325 mg PO BID-W/MEALS 30 Days #60 01/12/20 01/30/20 Rx Elemental)] tab Pantoprazole [Protonix] 40 mg PO DAILY 30 Days #30 01/12/20 01/30/20 Rx tablet. Losartan [Cozaar] 25 mg PO DAILY 01/30/20 01/30/20 History Losartan [Cozaar] 50 mg PO HS 01/30/20 01/30/20 History Meclizine [Antivert] 12.5 mg PO BID 01/30/20 01/30/20 History Omeprazole [PriLOSEC] 20 mg PO AC-BRKFST 01/30/20 01/30/20 History Ondansetron [Zofran] 4 mg PO Q8HR PRN 01/30/20 01/30/20 History Sucralfate [Carafate] 1 gm PO TID 01/30/20 01/30/20 History hydrOXYzine HCL 10 - 20 mg PO HS 01/30/20 01/30/20 History Allergies Allergy/AdvReac Type Severity Reaction Status Date / Time pregabalin [From Lyrica] Allergy Itching Verified 01/30/20 12:18 Surgical - Exam Vital Signs Temp Pulse Resp BP Pulse Ox 97.3 F L 58 L 18 194/91 97 01/30/20 04:51 01/30/20 04:51 01/30/20 04:51 01/30/20 04:51 01/30/20 04:51 Results - Labs 01/30/20 05:08 01/30/20 05:08 Abnormal Lab Results - Last 24 Hours (Table) 01/30/20 01/30/20 01/30/20 Range/Units 05:08 05:08 05:08 MCHC 30.9 L (31.0-37.0) g/dL RDW 18.7 H (11.5-15.5) % PT 45.9 H (9.0-12.0) sec INR 4.6 H (<1.2) APTT 40.7 H (22.0-30.0) sec Carbon Dioxide 31 H (22-30) mmol/L Diabetes panel 01/30/20 Range/Units 05:08 Sodium 139 (137-145) mmol/L Potassium 3.9 (3.5-5.1) mmol/L Chloride 101 (98-107) mmol/L Carbon Dioxide 31 H (22-30) mmol/L BUN 16 (7-17) mg/dL Creatinine 0.69 (0.52-1.04) mg/dL Glucose 93 (74-99) mg/dL Calcium 9.4 (8.4-10.2) mg/dL Calcium panel 01/30/20 Range/Units 05:08 Calcium 9.4 (8.4-10.2) mg/dL Pituitary panel 01/30/20 Range/Units 05:08 Sodium 139 (137-145) mmol/L Potassium 3.9 (3.5-5.1) mmol/L Chloride 101 (98-107) mmol/L Carbon Dioxide 31 H (22-30) mmol/L BUN 16 (7-17) mg/dL Creatinine 0.69 (0.52-1.04) mg/dL Glucose 93 (74-99) mg/dL Calcium 9.4 (8.4-10.2) mg/dL Adrenal panel 01/30/20 Range/Units 05:08 Sodium 139 (137-145) mmol/L Potassium 3.9 (3.5-5.1) mmol/L Chloride 101 (98-107) mmol/L Carbon Dioxide 31 H (22-30) mmol/L BUN 16 (7-17) mg/dL Creatinine 0.69 (0.52-1.04) mg/dL Glucose 93 (74-99) mg/dL Calcium 9.4 (8.4-10.2) mg/dL
[2020-01-30] MEDS: CARVEDILOL 6.25 MG TAB PO SCH ×2 (14:08→19:17)
[2020-01-30] MEDS: GABAPENTIN 300 MG CAP PO SCH ×2 (14:08→20:54)
[2020-01-30] MEDS: LEVOTHYROXINE 112 MCG TAB PO SCH (14:09)
[2020-01-30] MEDS: LOSARTAN 25 MG TAB PO SCH (14:10)
[2020-01-30] MEDS ORDERED: hydrALAZINE HCL 25 MG TAB PO STA (17:05)
[2020-01-30] MEDS: FERROUS SULFATE 325 MG TAB PO SCH (17:07)
[2020-01-30] MEDS: SUCRALFATE 1 GM TAB PO SCH ×2 (17:07→20:54)
--- NOTE | 2020-01-30 17:19 | P.CONS ---
History of Present Illness - Reason for Consult Consult date: 01/30/20 HTN Requesting physician: Margarito Miller - Chief Complaint headache - History of Present Illness Patient is an 84-year-old female with a past medical history of atrial fibrillation on anticoagulation with Coumadin, coronary artery disease, heart failure, prior DVT, and prior breast cancer status post lumpectomy who initially presented to the ER complaints of headache. We're consulted for medical management she is admitted to Dr. Miller due to a recent fall and hematoma. Patient seen and examined at bedside. She complains of a headache over the right side of her scalp where her stitches are at. It is constant and severe. It is not associated with lightheadedness, dizziness, change in vision, strokelike symptoms, difficulty with speech, or difficulty in swallowing. She denies any chest pain or shortness of breath. She states she's been ambulating well. Her initial fall happened approximately 6 days ago when she got out of bed and tripped on the corner of her glass cabinet. She denied any lightheadedness or syncope at that point in time. She states that she takes Coumadin secondary to atrial fibrillation has not recently had a blood clot in the leg or in the lungs. Of note she also was recently hospitalized within the last 30 days secondary to GI bleed INR of 10. She states that her Coumadin levels are typically followed by her speaker wirer out of [place] she has not seen in a while. Review of Systems Pertinent positives and negatives as discussed in HPI, a complete review of systems was performed and all other systems are negative. Past Medical History Past Medical History: Atrial Fibrillation, Coronary Artery Disease (CAD), Cancer, Heart Failure, Deep Vein Thrombosis (DVT), Hypertension Additional Past Medical History / Comment(s): Breast CA History of Any Multi-Drug Resistant Organisms: None Reported Past Surgical History: Pacemaker Additional Past Surgical History / Comment(s): rainer hip replacement, defibrillator, bilateral cataract, right breast lumpectomy with 7 lymph nodes removed Type of Cardiac Device: Permanent Pacemaker Device Placement Date:: not known Past Psychological History: Depression Smoking Status: Never smoker Past Alcohol Use History: None Reported Past Drug Use History: None Reported - Past Family History Mother Family Medical History: Cancer Additional Family Medical History / Comment(s): leukemia Father History Unknown: Yes Medications and Allergies Home Medications Medication Instructions Recorded Confirmed Type Acetaminophen with Codeine 1 tab PO Q8HR 01/07/20 01/30/20 History [Tylenol with Codeine #4 Tablet] Carvedilol [Coreg] 6.25 mg PO BID 01/07/20 01/30/20 History DULoxetine HCL [Cymbalta] 60 mg PO DAILY@1200 01/07/20 01/30/20 History Furosemide [Lasix] 40 mg PO Q48H PRN 01/07/20 01/30/20 History Gabapentin [Neurontin] 300 mg PO BID 01/07/20 01/30/20 History Levothyroxine Sodium [Synthroid] 112 mcg PO MOTUWETHFR 01/07/20 01/30/20 History Levothyroxine Sodium [Synthroid] 168 mg PO SUSA 01/07/20 01/30/20 History Warfarin Sodium 4 mg PO HS 01/07/20 01/30/20 History Ferrous Sulfate [Iron (65 MG 325 mg PO BID-W/MEALS 30 Days #60 01/12/20 01/30/20 Rx Elemental)] tab Pantoprazole [Protonix] 40 mg PO DAILY 30 Days #30 01/12/20 01/30/20 Rx tablet. Losartan [Cozaar] 25 mg PO DAILY 01/30/20 01/30/20 History Losartan [Cozaar] 50 mg PO HS 01/30/20 01/30/20 History Meclizine [Antivert] 12.5 mg PO BID 01/30/20 01/30/20 History Omeprazole [PriLOSEC] 20 mg PO AC-BRKFST 01/30/20 01/30/20 History Ondansetron [Zofran] 4 mg PO Q8HR PRN 01/30/20 01/30/20 History Sucralfate [Carafate] 1 gm PO TID 01/30/20 01/30/20 History hydrOXYzine HCL 10 - 20 mg PO HS 01/30/20 01/30/20 History Allergies Allergy/AdvReac Type Severity Reaction Status Date / Time pregabalin [From Lyrica] Allergy Itching Verified 01/30/20 12:18 Physical Exam Osteopathic Statement: *. No significant issues noted on an osteopathic structural exam other than those noted in the History and Physical/Consult. Vitals: Vital Signs Temp Pulse Pulse Resp BP BP Pulse Ox 01/30/20 15:50 190/100 01/30/20 12:50 208/96 01/30/20 11:27 97.9 F 60 17 204/95 96 01/30/20 08:02 97.5 F L 60 16 189/86 93 L 01/30/20 05:51 60 18 186/96 97 01/30/20 04:51 97.3 F L 58 L 18 194/91 97 Intake and Output 01/30/20 01/30/20 01/30/20 06:59 14:59 22:59 Other: Weight 65.771 kg 65.771 kg General: ill appearing, mild distress, appears at stated age, normal weight Derm: dressing in place over head without signs of soak through, no unusual rashes/lesions no unusual ecchymoses, warm, dry Head: atraumatic, normocephalic, symmetric Eyes: EOMI, no lid lag, anicteric sclera, pupils equal round reactive to light ENT: Nose and ears atraumatic, no thrush, no pharyngeal erythema Neck: No thyromegaly, no cervical lymphadenopathy, trachea midline, supple Mouth: no lip lesion, mucus membranes moist Cardiovascular: S1S2 reg, no murmur, positive posterior tibial pulse bilateral, no edema, capillary refill less than 2 seconds Lungs: CTA bilateral, no rhonchi, no rales , no accessory muscle use Abdominal: soft, nontender to palpation, no guarding, no appreciable organomega ly, normal bowel sounds Ext: no gross muscle atrophy, muscle strength 5 out of 5 in all 4 extremities grossly, no contractures, Neuro: CN II-XI grossly intact, light touch intact all 4 extremities, finger to nose within normal limits, Psych: Alert, oriented, appropriate affect Results CBC & Chem 7: 01/30/20 05:08 01/30/20 05:08 Labs: Abnormal Lab Results - Last 24 Hours (Table) 01/30/20 01/30/20 01/30/20 Range/Units 05:08 05:08 05:08 MCHC 30.9 L (31.0-37.0) g/dL RDW 18.7 H (11.5-15.5) % PT 45.9 H (9.0-12.0) sec INR 4.6 H (<1.2) APTT 40.7 H (22.0-30.0) sec Carbon Dioxide 31 H (22-30) mmol/L CT Scan - head: report reviewed, image reviewed Assessment and Plan Assessment: Coumadin coagulopathy with expanding hematoma - Vit K now, repeat INR in AM - admitted to surgery - D/w pt no coumadin until seen by PCP may not be a good medication for her anymore Intractable Headache - Pain medications - BP control Fall -PT/OT eval - fall precautions HTN urgency - follow BP - COzaar, coreg - hydralazine X 1 for accelerated BP A fib - coreg - coumadin on hold due to hematoma Hypothyroidism - levothyroxime GERD - Protonix - Carafate Chronic diastolic CHF EF 55-60% - continue lasix q 48 hours - Coreg - losartan DVT prophylaxis: SCD Discussed with: Patient, nursing, Dr. Miller Anticipated discharge: 1-[address]: home A total of 70 minutes was spent on the care of this complex patient more than 50% of the time was spent in counseling and care coordination.
[2020-01-30] MEDS: MECLIZINE 12.5 MG TAB PO SCH (20:54)
[2020-01-30] MEDS ORDERED: LOSARTAN 50 MG TAB PO SCH (21:00)
[2020-01-31] MEDS: HYDROmorphone 0.5 MG/0.5 ML SYRINGE IVP PRN ×2 (03:29→08:04)
[2020-01-31 05:26] VITALS: RESP 16
[2020-01-31] MEDS: LEVOTHYROXINE 112 MCG TAB PO SCH (05:56)
[2020-01-31] MEDS: oxyCODONE-APAP 5-325MG 1 EACH TAB PO PRN ×2 (05:59→12:14)
[2020-01-31 07:05] LABS: Prothrombin Time 19.3 sec (9.0-12.0)
[2020-01-31 07:08] LABS: Anisocytosis Slight; HCT 39.8 % (34.0-46.0); HGB 12.6 gm/dL (11.4-16.0); MCH 30.4 pg (25.0-35.0); MCHC 31.7 g/dL (31.0-37.0); MCV 95.9 fL (80.0-100.0); Macrocytosis Slight; Mean Platelet Volume 7.6; Platelet Count 316 k/uL (150-450); RBC 4.15 m/uL (3.80-5.40); RDW 18.3 % (11.5-15.5)
[2020-01-31 07:19] LABS: African American GFR (CKD) >90 (>60 ml/min/1.73 sqM); Anion Gap 8 mmol/L; Blood Urea Nitrogen 10 mg/dL (7-17); Calcium 9.1 mg/dL (8.4-10.2); Carbon Dioxide 24 mmol/L (22-30); Chloride 101 mmol/L (98-107); Glucose 100 mg/dL (74-99); Non-African American GFR(CKD) 86 (>60 ml/min/1.73 sqM); Potassium 3.8 mmol/L (3.5-5.1); Sodium 133 mmol/L (137-145)
[2020-01-31] MEDS ORDERED: NON FORMULARY DRUG (Omeprazole 20 MG) PO SCH (07:30)
[2020-01-31] MEDS ORDERED: PANTOPRAZOLE 40 MG TABLET PO SCH (07:30)
[2020-01-31] MEDS: SUCRALFATE 1 GM TAB PO SCH (08:05)
[2020-01-31] MEDS: CARVEDILOL 6.25 MG TAB PO SCH (08:05)
[2020-01-31] MEDS: SODIUM CHLORIDE 0.9% 1,000 ML IV SCH (08:05)
[2020-01-31] MEDS: MECLIZINE 12.5 MG TAB PO SCH (08:05)
[2020-01-31] MEDS: FERROUS SULFATE 325 MG TAB PO SCH (08:05)
[2020-01-31] MEDS: GABAPENTIN 300 MG CAP PO SCH (08:05)
[2020-01-31] MEDS: LOSARTAN 25 MG TAB PO SCH (08:05)
--- NOTE | 2020-01-31 10:47 | P.DS ---
Providers Date of admission: 01/30/20 05:53 Expected date of discharge: 01/31/20 Attending physician: Margarito Miller Consults: 01/30/20 05:53 Consult Physician Routine Consulting Provider: Iram Akbar Consult Reason/Comments: medicine consult Do you want consulting provider notified?: Yes Primary care physician: Khari Cuellar DO Hospital Course: 84-year-old female who presented to the emergency room secondary to severe head pain. Patient apparently fell almost a week ago. She had a laceration sutured at that time. Her pain has continued to increase over the course of the last week. CT of the brain was completed revealing no acute intracranial abnormality. Mild atrophy. Large right frontal acute scalp hematoma. Patient's INR was found to be 4.6 on admission. Coumadin has been held. She received vitamin K. Repeat INR is 2.0. Her pain has improved and is controlled with Percocet. She is stable for discharge home today per Dr. Miller. Please see EMR for further hospital course details. Discharge Diagnosis: 1. Large right front scalp hematoma, s/p fall 2. Intractable pain, secondary to above 3. Coagulopathy secondary to Coumadin Nurse practitioner note has been reviewed by physician. Signing provider agrees with the documented findings, assessment, and plan of care. Patient Condition at Discharge: Stable Plan - Discharge Summary Discharge Rx Participant: Yes New Discharge Prescriptions: New oxyCODONE HCL/ACETAMINOPHEN [Percocet 5-325 mg] 1 tab PO Q6HR PRN #10 tab PRN Reason: Pain Continue Levothyroxine Sodium [Synthroid] 168 mg PO SUSA Levothyroxine Sodium [Synthroid] 112 mcg PO MOTUWETHFR Gabapentin [Neurontin] 300 mg PO BID Furosemide [Lasix] 40 mg PO Q48H PRN PRN Reason: Edema DULoxetine HCL [Cymbalta] 60 mg PO DAILY@1200 Carvedilol [Coreg] 6.25 mg PO BID Ferrous Sulfate [Iron (65 MG Elemental)] 325 mg PO BID-W/MEALS 30 Days #60 tab Pantoprazole [Protonix] 40 mg PO DAILY 30 Days #30 tablet. Losartan [Cozaar] 25 mg PO DAILY Losartan [Cozaar] 50 mg PO HS Meclizine [Antivert] 12.5 mg PO BID hydrOXYzine HCL 10 - 20 mg PO HS Ondansetron [Zofran] 4 mg PO Q8HR PRN PRN Reason: Nausea And Vomiting Sucralfate [Carafate] 1 gm PO TID Omeprazole [PriLOSEC] 20 mg PO AC-KT Discharge Medication List Carvedilol [Coreg] 6.25 mg PO BID 01/07/20 [History] DULoxetine HCL [Cymbalta] 60 mg PO DAILY@1200 01/07/20 [History] Furosemide [Lasix] 40 mg PO Q48H PRN 01/07/20 [History] Gabapentin [Neurontin] 300 mg PO BID 01/07/20 [History] Levothyroxine Sodium [Synthroid] 112 mcg PO MOTUWETHFR 01/07/20 [History] Levothyroxine Sodium [Synthroid] 168 mg PO SUSA 01/07/20 [History] Ferrous Sulfate [Iron (65 MG Elemental)] 325 mg PO BID-W/MEALS 30 Days #60 tab 01/12/20 [Rx] Pantoprazole [Protonix] 40 mg PO DAILY 30 Days #30 tablet. 01/12/20 [Rx] Losartan [Cozaar] 25 mg PO DAILY 01/30/20 [History] Losartan [Cozaar] 50 mg PO HS 01/30/20 [History] Meclizine [Antivert] 12.5 mg PO BID 01/30/20 [History] Omeprazole [PriLOSEC] [facility] 01/30/20 [History] Ondansetron [Zofran] 4 mg PO Q8HR PRN 01/30/20 [History] Sucralfate [Carafate] 1 gm PO TID 01/30/20 [History] hydrOXYzine HCL 10 - 20 mg PO HS 01/30/20 [History] oxyCODONE HCL/ACETAMINOPHEN [Percocet 5-325 mg] 1 tab PO Q6HR PRN #10 tab 01/31/20 [Rx] Follow up Appointment(s)/Referral(s): Khari Cuellar DO [Primary Care Provider] - 1-2 days [facility], [NON-STAFF] - As Needed
[2020-01-31 11:53] VITALS: BP 152/74; PULSE 62; TEMP 97.4
[2020-01-31] MEDS ORDERED: DULoxetine HCL 60 MG CAPSULE.DR PO SCH (12:00)
--- NOTE | 2020-01-31 12:08 | P.PN ---
Subjective Progress Note Date: 01/31/20 Principal diagnosis: Headache Patient is an 84-year-old female with a past medical history of atrial fibrillation on anticoagulation with Coumadin, coronary artery disease, heart failure, prior DVT, and prior breast cancer status post lumpectomy who initially presented to the ER complaints of headache. We're consulted for medical management she is admitted to Dr. Miller due to a recent fall and hematoma. Patient seen and examined at bedside. No chest pain, no shortness or breath, no nausea, no vomiting. Headache is better than yesterday. No blood pressure cuff at home. Has home health. Objective - Vital Signs Vital signs: Vital Signs Temp 97.4 F L 01/31/20 11:30 Pulse 62 01/31/20 11:30 Resp 16 01/31/20 11:30 BP 152/74 01/31/20 11:30 Pulse Ox 95 01/31/20 11:30 Intake & Output 01/30/20 01/31/20 01/31/20 18:59 06:59 18:59 Intake Total 590 Balance 590 Weight 65.771 kg Intake: Oral 590 Other: # Voids 2 1 1 - Exam General: non toxic, no distress, appears at stated age Derm: ecchymosis and large swelling right forehead, warm, dry Eyes: EOMI, no lid lag, anicteric sclera, PERRL Mouth: no lip lesion, mucus membranes moist Cardiovascular: S1S2 reg, no murmur, positive posterior tibial pulse bilateral, Lungs: Decreased bs bilateral, no rhonchi, no rales , no accessory muscle use Abdominal: soft, nontender to palpation, no guarding, no appreciable organomegaly Ext: no gross muscle atrophy, no edema, no contractures Neuro: CN II-XI grossly intact, no focal neuro deficits Psych: Alert, oriented, appropriate affect - Labs CBC & Chem 7: 01/31/20 06:22 01/31/20 06:22 Labs: Abnormal Lab Results - Last 24 Hours (Table) 01/31/20 01/31/20 01/31/20 Range/Units 06:22 06:22 06:22 RDW 18.3 H (11.5-15.5) % PT 19.3 H (9.0-12.0) sec INR 2.0 H (<1.2) Sodium 133 L (137-145) mmol/L Glucose 100 H (74-99) mg/dL Assessment and Plan Assessment: Coumadin coagulopathy with Scalp hematoma - Vit K 01/29 - D/w pt no coumadin until seen by PCP may not be a good medication for her anymore Intractable Headache, improving - Pain medications - BP control Fall -PT/OT eval - fall precautions HTN urgency improved - follow BP - camelia Aguilera - Home health to follow BP three times weekly A fib - coreg - coumadin on hold due to hematoma Hypothyroidism - levothyroxime GERD - Protonix - Carafate Chronic diastolic CHF EF 55-60% - continue lasix q 48 hours - Coreg - losartan Patient medically optimized for discharged.
[2020-02-03] MEDS ORDERED: LEVOTHYROXINE 112 MCG TAB PO SCH (06:30)
== END 2020-01-31 16:32 | disposition home or self-care (01) ==
LOC: EC 04:41 → 5NMEDONC 05:53
PROVIDERS: ADMIT Surgery; ATTEND Surgery
DX: L76.32 Postprocedural hematoma of skin and subcutaneous tissue following other procedure (principal); S01.81XA Laceration without foreign body of other part of head, initial encounter; R51 Headache; R79.1 Abnormal coagulation profile; T45.515A Adverse effect of anticoagulants, initial encounter; I16.0 Hypertensive urgency; I11.0 Hypertensive heart disease with heart failure; I50.32 Chronic diastolic (congestive) heart failure; I25.10 Atherosclerotic heart disease of native coronary artery without angina pectoris; F32.9 Major depressive disorder, single episode, unspecified; E03.9 Hypothyroidism, unspecified; K21.9 Gastro-esophageal reflux disease without esophagitis; I48.91 Unspecified atrial fibrillation; Z79.01 Long term (current) use of anticoagulants; Z79.890 Hormone replacement therapy; Z79.899 Other long term (current) drug therapy; W01.0XXA Fall on same level from slipping, tripping and stumbling without subsequent striking against object, initial encounter; Z88.8 Allergy status to other drugs, medicaments and biological substances; Z96.643 Presence of artificial hip joint, bilateral; Z85.3 Personal history of malignant neoplasm of breast; Z86.718 Personal history of other venous thrombosis and embolism; Z98.42 Cataract extraction status, left eye; Z98.41 Cataract extraction status, right eye; Z95.0 Presence of cardiac pacemaker; Z87.19 Personal history of other diseases of the digestive system; Z80.6 Family history of leukemia
CPT/HCPCS: 96376 ×2; 96374; 96375; 99285; 36415; 80048 ×2; 85025; 85027; 85610 ×2; 85730; 70450; G0378 ×2; J2270; J1170 ×2

== ENCOUNTER 2020-02-01 09:33 | Emergency (ER) | payer MEDICARE ==
[2020-02-01 09:40] VITALS: RESP 18; TEMP 97.8
--- NOTE | 2020-02-01 09:49 | ED ---
General Adult HPI - General Chief complaint: Headache Stated complaint: swollen eye Time Seen by Provider: 02/01/20 09:41 Source: patient, family Mode of arrival: wheelchair Limitations: no limitations - History of Present Illness Initial comments: Dictation was produced using [employer] dictation software. please excuse any grammatical, word or spelling errors. This patient was cared for during a federal and state declared state of emergency secondary to Covid 19 Chief Complaint: 84-year-old female presents with headache and facial swelling History of Present Illness: A 4-year-old male presents with daughter for facial swelling and persistent headache. Patient was initially seen January 23. She had a laceration to her head after a fall. She was discharged after laceration repair. Patient was seen personally by myself on January 29. Considering that patient's headache was getting worse with evidence of expanding hematoma on r epeat CT patient was admitted. She is admitted to surgical team. She was discharged in stable medical condition. Smile she woke up and was noted to have swelling of the face. Patient also complains of headache. She was discharged, Percocet. States that the Percocet was not enough to manage her pain. The ROS documented in this emergency department record has been reviewed and confirmed by me. Those systems with pertinent positive or negative responses have been documented in the HPI. All other systems are other negative and/or noncontributory. PHYSICAL EXAM: General Impression: Alert and oriented x3, acute distress secondary to pain HEENT: Laceration to the right front porch shows dried blood. There is swelling to the entire upper face Cardiovascular: Heart regular rate and rhythm Chest: Able to complete full sentences, no retractions, no tachypnea Abdomen: Bowel sounds present, abdomen soft, non-tender, non-distended, no organomegaly Musculoskeletal: Pulses present and equal in all extremities, no peripheral edema Motor: no focal deficits noted Neurological: CN II-XII grossly intact, no focal motor or sensory deficits noted Skin: Intact with no visualized rashes Psych: Normal affect and mood ED course: 84-year-old female presents with headache and facial swelling. Signs upon arrival are within acceptable limits. Laboratory evaluation obtained. CBC unremarkable. Cardiac panel unremarkable. Metabolic panel is negative. Chart review was reviewed from recent admission. Her Coumadin was discontinued. Repeat computed tomography scan of the brain shows no acute intracranial processes. There does appear to be however persistent frontal scalp hematoma. Disposition options were discussed with patient and family were. At this point there is no reason for admission at this time. Reassured that time all improve her symptoms. Swelling is likely secondary to redistribution of hematoma. Deepak wrap applied to the head to aid with compression. Patient be discharged. Aggressive follow-up with primary care physician. - Related Data Home Medications Medication Instructions Recorded Confirmed Carvedilol [Coreg] 6.25 mg PO BID 01/07/20 01/30/20 DULoxetine HCL [Cymbalta] 60 mg PO DAILY@1200 01/07/20 01/30/20 Furosemide [Lasix] 40 mg PO Q48H PRN 01/07/20 01/30/20 Gabapentin [Neurontin] 300 mg PO BID 01/07/20 01/30/20 Levothyroxine Sodium [Synthroid] 112 mcg PO MOTUWETHFR 01/07/20 01/30/20 Levothyroxine Sodium [Synthroid] 168 mg PO SUSA 01/07/20 01/30/20 Losartan [Cozaar] 25 mg PO DAILY 01/30/20 01/30/20 Losartan [Cozaar] 50 mg PO HS 01/30/20 01/30/20 Meclizine [Antivert] 12.5 mg PO BID 01/30/20 01/30/20 Omeprazole [PriLOSEC] 20 mg PO AC-BRKFST 01/30/20 01/30/20 Ondansetron [Zofran] 4 mg PO Q8HR PRN 01/30/20 01/30/20 Sucralfate [Carafate] 1 gm PO TID 01/30/20 01/30/20 hydrOXYzine HCL 10 - 20 mg PO HS 01/30/20 01/30/20 Previous Rx's Medication Instructions Recorded Ferrous Sulfate [Iron (65 MG 325 mg PO BID-W/MEALS 30 Days #60 01/12/20 Elemental)] tab Pantoprazole [Protonix] 40 mg PO DAILY 30 Days #30 01/12/20 tablet. oxyCODONE HCL/ACETAMINOPHEN 1 tab PO Q6HR PRN #10 tab 01/31/20 [Percocet 5-325 mg] Morphine Sulfate Ir [MSIR] 30 mg PO Q6HR PRN 3 Days #12 tab 02/01/20 oxyCODONE HCL/ACETAMINOPHEN 1 tab PO Q6HR PRN 3 Days #12 tab 02/01/20 [Percocet 5-325 mg] Allergies Allergy/AdvReac Type Severity Reaction Status Date / Time pregabalin [From Lyrica] Allergy Itching Verified 02/01/20 09:39 Review of Systems ROS Statement: Those systems with pertinent positive or pertinent negative responses have been documented in the HPI. ROS Other: All systems not noted in ROS Statement are negative. Past Medical History Past Medical History: Atrial Fibrillation, Coronary Artery Disease (CAD), Cancer, Heart Failure, Deep Vein Thrombosis (DVT), Hypertension Additional Past Medical History / Comment(s): Breast CA History of Any Multi-Drug Resistant Organisms: None Reported Past Surgical History: Pacemaker Additional Past Surgical History / Comment(s): rainer hip replacement, defibrillator, bilateral cataract, right breast lumpectomy with 7 lymph nodes removed Type of Cardiac Device: Permanent Pacemaker Device Placement Date:: not known Past Psychological History: Depression Smoking Status: Never smoker Past Alcohol Use History: None Reported Past Drug Use History: None Reported - Past Family History Mother Family Medical History: Cancer Additional Family Medical History / Comment(s): leukemia Father History Unknown: Yes General Exam Limitations: no limitations Course Vital Signs 02/01/20 09:36 Temperature 97.8 F Pulse Rate 60 Respiratory 18 Rate Blood Pressure 113/67 O2 Sat by Pulse 99 Oximetry Medical Decision Making - Lab Data Result diagrams: 02/01/20 09:58 02/01/20 09:58 Lab Results 02/01/20 02/01/20 02/01/20 Range/Units 09:58 09:58 09:58 WBC 8.8 (3.8-10.6) k/uL RBC 4.57 (3.80-5.40) m/uL Hgb 14.0 (11.4-16.0) gm/dL Hct 44.1 (34.0-46.0) % MCV 96.6 (80.0-100.0) fL MCH 30.6 (25.0-35.0) pg MCHC 31.7 (31.0-37.0) g/dL RDW 18.4 H (11.5-15.5) % Plt Count 366 (150-450) k/uL Neutrophils % 73 % Lymphocytes % 13 % Monocytes % 8 % Eosinophils % 3 % Basophils % 1 % Neutrophils # 6.4 (1.3-7.7) k/uL Lymphocytes # 1.2 (1.0-4.8) k/uL Monocytes # 0.7 (0-1.0) k/uL Eosinophils # 0.2 (0-0.7) k/uL Basophils # 0.1 (0-0.2) k/uL Hypochromasia Slight Anisocytosis Slight Macrocytosis Slight PT 12.8 H (9.0-12.0) sec INR 1.3 H (<1.2) APTT 26.7 (22.0-30.0) sec Sodium 138 (137-145) mmol/L Potassium 3.5 (3.5-5.1) mmol/L Chloride 101 (98-107) mmol/L Carbon Dioxide 28 (22-30) mmol/L Anion Gap 9 mmol/L BUN 13 (7-17) mg/dL Creatinine 0.82 (0.52-1.04) mg/dL Est GFR (CKD-EPI)AfAm 76 (>60 ml/min/1.73 sqM) Est GFR (CKD-EPI)NonAf 66 (>60 ml/min/1.73 sqM) Glucose 109 H (74-99) mg/dL Calcium 9.7 (8.4-10.2) mg/dL Disposition Clinical Impression: Scalp hematoma Disposition: HOME SELF-CARE Condition: Good Instructions (If sedation given, give patient instructions): Hematoma (ED) Additional Instructions: Please be careful with use of oral analgesics. Both of the substance are narcotic medications. Excessive use can result in respiratory depression. Please do not use more than the recommended amount at one given time. Prescriptions: Morphine Sulfate Ir [MSIR] 30 mg PO Q6HR PRN 3 Days #12 tab PRN Reason: Severe Pain oxyCODONE HCL/ACETAMINOPHEN [Percocet 5-325 mg] 1 tab PO Q6HR PRN 3 Days #12 tab PRN Reason: Pain Is patient prescribed a controlled substance at d/c from ED?: Yes If prescribed controlled substance>3 days was MAPS reviewed?: Prescribed <3 Days Referrals: None,Stated [REFERRING] - 1-2 days Time of Disposition: 10:41
[2020-02-01] MEDS: HYDROmorphone 1 MG/ML 1 ML SYRINGE IVP STA (09:58)
[2020-02-01 10:10] LABS: Anisocytosis Slight; Basophils # (A) 0.1 k/uL (0-0.2); Basophils % (A) 1 %; Eosinophils # (A) 0.2 k/uL (0-0.7); Eosinophils % (A) 3 %; HCT 44.1 % (34.0-46.0); Hypochromasia Slight; Lymphocytes # (A) 1.2 k/uL (1.0-4.8); Lymphocytes % (A) 13 %; MCH 30.6 pg (25.0-35.0); MCHC 31.7 g/dL (31.0-37.0); MCV 96.6 fL (80.0-100.0); Macrocytosis Slight; Mean Platelet Volume 7.6; Monocytes # (A) 0.7 k/uL (0-1.0); Monocytes % (A) 8 %; Neutrophils # (A) 6.4 k/uL (1.3-7.7); Neutrophils % (A) 73 %; Platelet Count 366 k/uL (150-450); RBC 4.57 m/uL (3.80-5.40); RDW 18.4 % (11.5-15.5); WBC 8.8 k/uL (3.8-10.6)
[2020-02-01 10:23] LABS: INR 1.3 (<1.2); Partial Thromboplastin Time 26.7 sec (22.0-30.0); Prothrombin Time 12.8 sec (9.0-12.0)
[2020-02-01 10:26] LABS: Calcium 9.7 mg/dL (8.4-10.2); Potassium 3.5 mmol/L (3.5-5.1)
--- NOTE | 2020-02-01 10:28 | CT ---
EXAMINATION TYPE: CT brain wo con DATE OF EXAM: 02/01/2020 HISTORY: headache. Recent fall injury. CT DLP: 1062.4 mGycm. Automated Exposure Control for Dose Reduction was Utilized. TECHNIQUE: CT scan of the head is performed without contrast. COMPARISON: CT brain 2 days ago. FINDINGS: There is no acute intracranial hemorrhage or midline shift identified. There is diffuse v entricular and sulcal prominence consistent with diffuse age-related cerebral atrophy redemonstrated. There is low-attenuation in the periventricular white matter consistent with chronic small vessel i schemic change redemonstrated. Large right frontal acute scalp hematoma remains present more organize d and the findings versus prior study. The calvarium is intact. Scleral calcification bilateral globe s. Visualized paranasal sinuses are clear. IMPRESSION: No acute intracranial hemorrhage or midline shift. There is mild to moderate diffuse ce rebral atrophy and chronic small vessel ischemic change redemonstrated. Persistent large right front al acute scalp hematoma.
[2020-02-01 10:45] VITALS: BP 136/69; PULSE 72
== END 2020-02-01 10:54 | disposition home or self-care (01) ==
LOC: EC 09:33
DX: S00.03XA Contusion of scalp, initial encounter (principal); F32.9 Major depressive disorder, single episode, unspecified; I25.10 Atherosclerotic heart disease of native coronary artery without angina pectoris; I11.0 Hypertensive heart disease with heart failure; I50.9 Heart failure, unspecified; Z79.899 Other long term (current) drug therapy; Z88.8 Allergy status to other drugs, medicaments and biological substances; Z85.3 Personal history of malignant neoplasm of breast; Z96.643 Presence of artificial hip joint, bilateral; Z90.11 Acquired absence of right breast and nipple; X58.XXXA Exposure to other specified factors, initial encounter
CPT/HCPCS: 36415; 70450; 80048; 85025; 85610; 85730; 96374; 99284